=== PATIENT | female | born 1960 | race Caucasian/White ===

== ENCOUNTER 2025-08-07 14:45 | Inpatient (IN) ==
--- NOTE | 2025-08-07 15:32 | Emergency Department Note ---
Impression & Plan Acute and chronic respiratory failure with hypoxia, Pleural effusion, ILD (interstitial lung disease) ED Provider Note NAME: MARCO GARCIA AGE: 64 SEX: F : 1960 ARRIVES VIA: Walk-In INFORMANT: Patient, ED PROVIDER(S): Bhavna Carballo MD CHIEF COMPLAINT: Shortness of breath HPI: This is a 34-year-old female presenting for shortness of breath. Patient has had extensive shortness of breath over the past few months. She notes that in late May she had shortness of breath and was treated for an outpatient pneumonia. She then had worsening symptoms, went to an outside hospital where she was admitted for 6 or 7 days for inpatient antibiotics. She then followed up with a appointment clerk ROS: See above HPI for pertinent positives & negatives. A total of 10 systems reviewed and were otherwise negative. PAST MEDICAL HISTORY: See Below PAST SURGICAL HISTORY: See Below FAMILY HISTORY: See Below SOCIAL HISTORY: See Below HOME MEDICATIONS: See Below ALLERGIES: See Below VITALS: See Below PHYSICAL EXAMINATION: General: Resting comfortably with mild conversational dyspnea Head: Normocephalic and atraumatic Eyes: Normal inspection, extraocular muscles intact Ear, nose, throat: Normal external exam Neck: Normal range of motion Respiratory: Rhonchi diffusely Cardiovascular: Regular rate/rhythm, no murmur GI: soft, nontender, no guarding or rebound Extremities: nontender, moves all extremities Neuro: The patient awake and alert, appropriately conversive, no focal deficits, symmetric faces Skin: Warm, dry, and intact MEDICAL DECISION MAKING: This is a 34-year-old female presenting for shortness of breath. Patient's longstanding history of this. Has a 3 as of antibiotics previously. Will do screening dyspnea workup including EKG, BNP, chest x-ray. -No leukocytosis or anemia. There is significant hyponatremia to 122 with hypochloremia to 88. BNP 253. Procalcitonin negative. Urinalysis negative. URI negative. -Chest x-ray reveals multifocal pneumonia - did order antibiotics however patient refused that she is at 3 different meds of antibiotics and no improvement in symptoms. -CT imaging reveals possible ILD versus pneumonia prescription organizing pneumonia. No PE is noted -Patient is still having shortness of breath, currently on 4 L nasal cannula. Will admit to the hospital service for further evaluation and workup. Differential diagnosis: Pneumonia, PE ,interstitial lung disease, pulmonary hypertension Independent History obtained from: Diagnostics interpreted by me: ECG: ECG independently interpreted by me with normal sinus rhythm, rate of 86, normal CO, normal QRS, normal QTc, no ST segment elevations consistent with STEMI criteria, T wave inversions in lead III Cardiac Monitoring: An order was placed for continuous cardiac monitoring. The monitor shows a rate of 77 with sinus rhythm. 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 Beliefs That Will Affect Care: None Current Living Situation: Spouse Other Information That Helps Us Care for You: No Feels Safe at Home: Yes Safety Concerns: Feels Safe At This Time Assistive Devices: Glasses and Oxygen - Continuous Allergies Allergies Allergy/AdvReac Type Severity Reaction Status Date / Time No Known Allergies Allergy Verified 07/28/12 07:13 Home Meds Home Medications Medication Instructions Recorded Confirmed albuterol sulfate 90 mcg/actuation 1 - 2 puff inhalation Q4 PRN COUGH 08/07/25 08/07/25 aerosol inhaler OR SOB furosemide 40 mg tablet 40 mg PO DAILY 08/07/25 08/07/25 lisinopril 20 1 tab PO DAILY 08/07/25 08/07/25 mg-hydrochlorothiazide 12.5 mg tablet prednisone 10 mg tablet 40 mg PO DAILY 08/07/25 08/07/25 Results & Data (ED) Vital Signs Vital Signs - 24 hr 08/07/25 14:55 08/07/25 15:06 08/07/25 15:36 Temperature 36.5 C Temperature Source Temporal Artery Scan Pulse Rate 94 H 80 Pulse Rate from SpO2 Sensor 79 Respiratory Rate 25 H 26 H Blood Pressure 157/100 H Blood Pressure Mean 119 Pulse Oximetry 98 97 99 Oxygen Delivery Method Nasal Cannula Nasal Cannula Oxygen Flow Rate 2 4 4 Sepsis Recent Fever Within 48 Hours No Sepsis New/Unexplained Change in Mental Status No Sepsis Action Taken by Nursing No Action Required 08/07/25 15:45 08/07/25 15:57 08/07/25 16:16 Temperature Temperature Source Pulse Rate 79 75 95 H Pulse Rate from SpO2 Sensor 79 75 Respiratory Rate 28 H 26 H Blood Pressure Blood Pressure Mean Pulse Oximetry 99 99 Oxygen Delivery Method Oxygen Flow Rate 4 Sepsis Recent Fever Within 48 Hours Sepsis New/Unexplained Change in Mental Status Sepsis Action Taken by Nursing 08/07/25 16:18 08/07/25 16:20 08/07/25 16:20 Temperature Temperature Source Pulse Rate 83 Pulse Rate from SpO2 Sensor 83 Respiratory Rate 21 Blood Pressure 168/90 H 168/90 H Blood Pressure Mean 110 110 Pulse Oximetry 99 Oxygen Delivery Method Oxygen Flow Rate Sepsis Recent Fever Within 48 Hours Sepsis New/Unexplained Change in Mental Status Sepsis Action Taken by Nursing 08/07/25 16:21 08/07/25 16:30 08/07/25 16:30 Temperature Temperature Source Pulse Rate 74 Pulse Rate from SpO2 Sensor 75 Respiratory Rate 25 H Blood Pressure 150/77 H 150/77 H Blood Pressure Mean 104 104 Pulse Oximetry 98 Oxygen Delivery Method Oxygen Flow Rate Sepsis Recent Fever Within 48 Hours Sepsis New/Unexplained Change in Mental Status Sepsis Action Taken by Nursing 08/07/25 16:30 08/07/25 16:30 08/07/25 16:30 Temperature Temperature Source Pulse Rate Pulse Rate from SpO2 Sensor Respiratory Rate Blood Pressure 150/77 H 150/77 H 150/77 H Blood Pressure Mean 104 104 104 Pulse Oximetry Oxygen Delivery Method Oxygen Flow Rate Sepsis Recent Fever Within 48 Hours Sepsis New/Unexplained Change in Mental Status Sepsis Action Taken by Nursing 08/07/25 16:30 08/07/25 16:42 08/07/25 16:51 Temperature Temperature Source Pulse Rate 74 75 77 Pulse Rate from SpO2 Sensor 74 76 77 Respiratory Rate 23 25 H 25 H Blood Pressure Blood Pressure Mean Pulse Oximetry 98 97 97 Oxygen Delivery Method Oxygen Flow Rate Sepsis Recent Fever Within 48 Hours Sepsis New/Unexplained Change in Mental Status Sepsis Action Taken by Nursing 08/07/25 17:00 08/07/25 17:00 08/07/25 17:30 Temperature Temperature Source Pulse Rate Pulse Rate from SpO2 Sensor Respiratory Rate Blood Pressure 139/73 139/73 159/85 H Blood Pressure Mean 102 102 113 Pulse Oximetry Oxygen Delivery Method Oxygen Flow Rate Sepsis Recent Fever Within 48 Hours Sepsis New/Unexplained Change in Mental Status Sepsis Action Taken by Nursing 08/07/25 17:30 08/07/25 18:00 08/07/25 18:12 Temperature Temperature Source Pulse Rate 76 84 Pulse Rate from SpO2 Sensor 79 81 Respiratory Rate 22 19 Blood Pressure 159/85 H 187/98 H Blood Pressure Mean 113 127 Pulse Oximetry 98 98 Oxygen Delivery Method Oxygen Flow Rate Sepsis Recent Fever Within 48 Hours Sepsis New/Unexplained Change in Mental Status Sepsis Action Taken by Nursing 08/07/25 18:21 08/07/25 18:30 08/07/25 18:30 Temperature Temperature Source Pulse Rate 80 75 Pulse Rate from SpO2 Sensor 77 76 Respiratory Rate 25 H 20 Blood Pressure 161/81 H Blood Pressure Mean 119 Pulse Oximetry 98 98 Oxygen Delivery Method Oxygen Flow Rate Sepsis Recent Fever Within 48 Hours Sepsis New/Unexplained Change in Mental Status Sepsis Action Taken by Nursing Laboratory Data 08/08/25 07:06 08/08/25 07:06 Lab Results 08/07/25 08/07/25 08/07/25 Range/Units 15:10 16:11 16:17 WBC 9.71 (4.8-10.8) K/ul RBC 4.41 (4.20-5.40) M/uL Hgb 14.1 (12.0-16.0) g/dl Hct 38.2 (37.0-47.0) % MCV 86.6 (80.0-100.0) fL MCH 32.0 (25.0-34.0) pg MCHC 36.9 H (32.0-36.0) g/dL RDW Std Deviation 37.2 (36.4-46.3) fL RDW Coeff of June 11.6 (11.5-14.5) % Plt Count 212 (130-400) K/uL MPV 9.8 (9.4-12.4) fL Immature Gran % (Auto) 0.3 % Neut % (Auto) 86.3 % Lymph % (Auto) 10.6 % [place] % (Auto) 2.4 % Eos % (Auto) 0.3 % Baso % (Auto) 0.1 % Neut # (Auto) 8.38 H (1.40-6.50) K/uL Lymph # (Auto) 1.03 L (1.20-3.40) K/uL [place] # (Auto) 0.23 (0.11-0.59) K/uL Eos # (Auto) 0.03 (0.00-0.50) K/uL Baso # (Auto) 0.01 (0.00-0.20) K/uL Immature Gran # (Auto) 0.03 (0.01-0.20) K/uL ESR 13 (0-30) mm/hr Sodium 122 L (136-145) mmol/L Potassium 3.7 (3.5-5.1) mmol/L Chloride 88 L (98-107) mmol/L Carbon Dioxide 25 (21-32) mmol/L Anion Gap 9 (3-11) BUN 27 H (6-23) mg/dl Creatinine 0.86 (0.6-1.2) mg/dl Est Cr Clr Drug Dosing 63.5 ml/min eGFR 76.33 BUN/Creatinine Ratio 31.4 H (10-20) Glucose 129 H (70-99(Fasting)) mg/dl Osmolality 265 L (280-300) mOsm/kg Calcium 9.7 (8.6-10.3) mg/dl Total Bilirubin 1.3 H (0.2-1.0) mg/dl AST 23 (13-39) U/L ALT 23 (7-52) U/L Alkaline Phosphatase 49 (34-104) U/L Lactate Dehydrogenase 342 H (86-244) U/L C-Reactive Protein < 0.50 (0-0.5) mg/dl B-Natriuretic Peptide 253 H (0-100) pg/ml Total Protein 7.6 (6.0-8.3) gm/dl Albumin 4.4 (3.4-5.0) gm/dl Globulin 3.2 (2.5-4.0) gm/dl Albumin/Globulin Ratio 1.4 (0.9-2) Procalcitonin < 0.02 (0-0.5) ng/ml Urine Color Yellow Urine Appearance Clear (Clear) Urine pH 6.5 (4.5-7.5) Ur Specific [place] 1.006 (1.000-1.030) Urine Protein Negative (Negative) Urine Glucose (UA) Negative (Negative) Urine Ketones Negative (Negative) Urine Blood Negative (Negative) Urine Nitrite Negative (Negative) Urine Bilirubin Negative (Negative) Urine Urobilinogen Negative (Negative) Ur Leukocyte Esterase Negative (Negative) Urine Osmolality 176 L (500-800) mOsm/kg Ur Random Creatinine 17.2 mg/dl Ur Random Sodium 20 mmol/L Urine Comment Adenovirus (PCR) Not Detected (NotDetected) B. pertussis DNA (PCR) Not Detected (NotDetected) B.parapertussis DNA PCR Not Detected (NotDetected) C. pneumoniae DNA (PCR) Not Detected (NotDetected) Coronavirus OC43 (PCR) Not Detected (NotDetected) Coronavirus HKU1 (PCR) Not Detected (NotDetected) Coronavirus 229E (PCR) Not Detected (NotDetected) SARS-CoV-2 (PCR) Not Detected (NotDetected) Coronavirus NL63 (PCR) Not Detected (NotDetected) Human Metapneumovir PCR Not Detected (NotDetected) Influenza Type A (PCR) Not Detected (NotDetected) Influenza Type B (PCR) Not Detected (NotDetected) M. pneumoniae (PCR) Not Detected (NotDetected) Parainfluenza 1 (PCR) Not Detected (NotDetected) Parainfluenza 2 (PCR) Not Detected (NotDetected) Parainfluenza 3 (PCR) Not Detected (NotDetected) Parainfluenza 4 (PCR) Not Detected (NotDetected) RSV (PCR) Not Detected (NotDetected) Entero/Rhino (PCR) Not Detected (NotDetected) Administered Medications Guaifenesin/Codeine Phosphate (Guaifenesin/Codeine 100mg/10mg 5ml Udc) 10 ml PO HS [facility] Stop: 09/06/25 21:37 Last Admin: 08/07/25 22:25 Dose: 10 ml Documented By: MARICARMEN Discontinued Medications Ceftriaxone Sodium (Rocephin) 2,000 mg in 50 mls @ 100 mls/hr IV NOW STA Stop: 08/07/25 18:03 Last Admin: 08/07/25 18:10 Dose: Not Given Documented By: BS Azithromycin (Zithromax) 500 mg in 255 mls @ 127.5 mls/hr IV NOW ONE Stop: 08/07/25 19:33 Last Admin: 08/07/25 18:10 Dose: Not Given Documented By: BS Sodium Chloride (Nss) 500 mls @ 100 mls/hr IV .Q5H KANDACE Stop: 08/08/25 06:14 Last Infusion: 08/08/25 06:42 Dose: Infused Documented By: Admin: 08/08/25 01:27 Dose: 100 mls/hr Documented By: Infusion: 08/08/25 01:14 Dose: Infused Documented By: Admin: 08/07/25 20:14 Dose: 100 mls/hr Documented By: MAURICIO Ioversol (Optiray 320 125ml) 119 ml IV ONCE ONE Stop: 08/07/25 17:16 Last Admin: 08/07/25 17:16 Dose: 119 ml Documented By: EAB Imaging Data Radiologist's Impression: Chest X-Ray 08/07/25 15:02 Chest radiograph, one view History: Dyspnea Comparison: None Findings: Single AP view of the chest performed. Mild scattered patchy nodular opacities in the mid and lower lungs bilaterally. No pneumothorax. The cardiomediastinal silhouette is within normal limits. Indistinct pulmonary vascularity. No evidence for lymphadenopathy. No visualized bony or soft tissue abnormality. Impression: Mild patchy nodular opacities, concerning for infection Electronically signed by Jakob Rankin 08-07-2025 3:34 PM Chest CTA 08/07/25 15:26 CT pulmonary angiogram with IV contrast History: shortness of breath COMPARISON: None TECHNIQUE: CT angiography of the chest was performed without IV contrast followed by IV contrast, including 3D post processing CTA image reconstruction. Dose reduction techniques were achieved by using automatic exposure control and/or adjustment of mA and/or kV according to patient size and/or use of iterative reconstruction technique. FINDINGS: Diagnostic quality: Adequate There is no evidence for pulmonary embolism. The heart is enlarged. Moderate coronary calcifications. There is no pericardial effusion. Mild reactive appearing lymph nodes In the chest. The central tracheobronchial tree is clear. There are diffuse, mixed coarse opacities with patchy ground glass, overall with a lower lobe predominance, most pronounced in the left lower lobe. There is significant involvement of the central peribronchovascular regions, as well as the periphery. No significant bronchiectasis. No definite honeycombing. There is no pleural effusion. Limited visualized upper abdomen. No destructive osseous changes are seen. IMPRESSION: No evidence for pulmonary embolism. Multifocal, patchy coarse as well as ground glass opacities with a lower lung predominance, consistent with interstitial lung disease, indeterminate for UIP, possibly representing chronic hypersensitivity pneumonitis, or cryptogenic organizing pneumonia. The areas of ground glass density suggest an acute inflammatory component in addition to the fibrotic change. An atypical infectious process superimposed would be difficult to entirely exclude, however the appearance suggests active ILD. Electronically signed by Jakob Rankin 08-07-2025 5:40 PM Discharge Plan Visit Data Chief Complaint: Referred by Doctor Stated Complaint: REF BY DOC, LUNG AND HEART ISSUES ED Provider: Bhavna Carballo Discharge Problem: Acute and chronic respiratory failure with hypoxia, Pleural effusion, ILD (interstitial lung disease) Patient Disposition: Admitted As Inpatient Condition: Fair Discharge Instructions Interventions: ED Discharge Assessment Last Done: 08/07/25 21:19
[2025-08-07 15:33] LABS: Hematocrit (blood only) 38.2 % (37.0-47.0); Hemoglobin 14.1 g/dl (12.0-16.0); Immature Granulocytes # (auto) 0.03 K/uL (0.01-0.20); Immature Granulocytes % (auto) 0.3 %; Mean Corpuscular Hemoglobin 32.0 pg (25.0-34.0); Mean Corpuscular Volume 86.6 fL (80.0-100.0); Platelet Count 212 K/uL (130-400); RDW Standard Deviation 37.2 fL (36.4-46.3); Red Blood Count 4.41 M/uL (4.20-5.40); White Blood Count 9.71 K/ul (4.8-10.8)
[2025-08-07 15:59] LABS: Alanine Aminotransferase 23 U/L (7-52); Albumin Globulin Ratio 1.4 (0.9-2); Albumin Level 4.4 gm/dl (3.4-5.0); Alkaline Phosphatase 49 U/L (34-104); Anion Gap 9 (3-11); Bilirubin,Total 1.3 mg/dl (0.2-1.0); Blood Urea Nitrogen 27 mg/dl (6-23); Calcium 9.7 mg/dl (8.6-10.3); Carbon Dioxide 25 mmol/L (21-32); Chloride 88 mmol/L (98-107); Creatinine Clr Calc Pharmacy 63.5 ml/min; Globulin 3.2 gm/dl (2.5-4.0); Glucose 129 mg/dl (70-99(Fasting)); Potassium 3.7 mmol/L (3.5-5.1); Sodium 122 mmol/L (136-145); Total Protein 7.6 gm/dl (6.0-8.3)
[2025-08-07 16:32] LABS: Appearance Urine Clear (Clear); Glucose Urine UA Negative (Negative)
[2025-08-07] MEDS: OPTIRAY 320 125ml IV ONE (17:16)
--- NOTE | 2025-08-07 17:40 | CT Scan Report ---
CT pulmonary angiogram with IV contrast History: shortness of breath COMPARISON: None TECHNIQUE: CT angiography of the chest was performed without IV contrast followed by IV contrast, including 3D post processing CTA image reconstruction. Dose reduction techniques were achieved by using automatic exposure control and/or adjustment of mA and/or kV according to patient size and/or use of iterative reconstruction technique. FINDINGS: Diagnostic quality: Adequate There is no evidence for pulmonary embolism. The heart is enlarged. Moderate coronary calcifications. There is no pericardial effusion. Mild reactive appearing lymph nodes In the chest. The central tracheobronchial tree is clear. There are diffuse, mixed coarse opacities with patchy ground glass, overall with a lower lobe predominance, most pronounced in the left lower lobe. There is significant involvement of the central peribronchovascular regions, as well as the periphery. No significant bronchiectasis. No definite honeycombing. There is no pleural effusion. Limited visualized upper abdomen. No destructive osseous changes are seen. IMPRESSION: No evidence for pulmonary embolism. Multifocal, patchy coarse as well as ground glass opacities with a lower lung predominance, consistent with interstitial lung disease, indeterminate for UIP, possibly representing chronic hypersensitivity pneumonitis, or cryptogenic organizing pneumonia. The areas of ground glass density suggest an acute inflammatory component in addition to the fibrotic change. An atypical infectious process superimposed would be difficult to entirely exclude, however the appearance suggests active ILD. Electronically signed by Jakob Rankin 08-07-2025 5:40 PM
[2025-08-07] MEDS: AZITHROMYCIN 500 MG/255 ML BAG IV ONE (18:10)
[2025-08-07] MEDS: cefTRIAXone SODIUM 2,000 MG/50 ML BAG IV STA (18:10)
[2025-08-07 18:33] LABS: Chlamydia pneumoniae PCR Not Detected (NotDetected); Coronavirus 229E PCR Not Detected (NotDetected); Coronavirus CoV-2 (COVID19)PCR Not Detected (NotDetected); Coronavirus HKU1 PCR Not Detected (NotDetected); Coronavirus NL63 PCR Not Detected (NotDetected); Coronavirus OC43PCR Not Detected (NotDetected); Human Metapneumovirus PCR Not Detected (NotDetected); Parainfluenza Virus 1 PCR Not Detected (NotDetected); Parainfluenza Virus 2 PCR Not Detected (NotDetected); Parainfluenza Virus 3 PCR Not Detected (NotDetected); Parainfluenza Virus 4 PCR Not Detected (NotDetected); Respiratory Syncytial VirusPCR Not Detected (NotDetected); Rhinovirus/Enterovirus PCR Not Detected (NotDetected)
--- NOTE | 2025-08-07 18:33 | History & Physical Report ---
Date of Service August 07, 2025 Assessment & Plan (1) Shortness of breath: Plan Discussed with Belinda KWONG with [facility] via phone for the following records/results from recent hospitalization at [facility] as well as studies conducted in outpatient setting: PT symptoms started in May, where she was seen by PCP and given oral antibiotics levofloxacin 500 mg x 14 days, no symptom improvement. CT chest at that time showed ground glass opacities. She was admitted to [facility] from 07/10-07/16 where she was given Iv vancomycin, amongst other scans and a cardiac stress test which was read as normal. Echo showed severely dilated RV and EF of 55%, mild mitral regurgitation. RVSP 36. Sodium during that stay was around 130 consistently. During that stay is where she was told her heart was looking more like heart failure and was placed on amlodipine 5 mg and lisinopril 40 mg. She is still taking these medications. Recently she was also placed on lasix 40 mg daily. Pt has been following with [facility] as outpatient on 07/20/25. The patient was seen by wall insulation sprayer at [facility], Belinda KWONG, on follow up. She was started on prednisone 40 mg daily for about 2 weeks. Pulse ox was slightly improved on RA and was only requiring 2 L with exertional activity. hypersensitivity pneumonitis rule out per pulm. ANCA and MARY testing negative dSNA ab neg, SUSY antibodies screen interpretation negative Angiotensin converting enzyme negative Aspergillus negative Micropolyspora faeni, pigeon serum, T. candidus, T, vulgaris, S. Viridis all negative. Rh Factor negative CCP IgG negative Proteinase 3 ab negative Myeloperoxidase Ab negative May call Belinda Rapp at [phone] with [facility] if questions. Possible Interstitial Lung disease, ?crytogenic pneumonia - Admit to Tele - Discussed care with ELENITA Foley with [facility] regarding recent outpatient test. - Consult pulmonology, Dr. Grijalva - possible bronchoscopy needed during this admission - Consult cardiology with hyponatremia and possible heart failure with preserved EF. - Recently had outpatient MARY, ANCA and was negative per [facility]. She was scheduled for outpatient PFTs and CTA but hasn't happened yet - Check coccidioses, fungitel beta 1 glucan, HIV, legionella, sputum culture, LDH, ESR, CRP, peripheral smear - RVP biofire is negative - Na 122 today - Echo 07/12/25: [facility] report - EF of 55-60%, RV cavity size mildly dilated, systolic pressure mildly elevated, mitral valve mildly calcified, mild regurgitation, mildly thickened mitral leaflets, pulmonic valve mild regurgitation. - Repeat echo here. - CTA today showing heart enlargement, moderate coronary calcification, no pericardial effusion, mild reactive appearing lymph nodes. vascular calcific ations on CT in the aorta and coronary arteries were seen on previous CTA at [facility] as well. - hold prednisone 40 mg daily which she has been on for about 2 week. await pulm recommendations Hyponatremia - 122 on admission - NS 1L total at 100 ml/hr, possible prerenal or lasix induced etiology. - Hold lisinopril/hctz for now DVT ppx:teds, scds Lines: PIV x 1 CODE: FULL Dispo: From home, likely to remain in the hospital x 1-2 days A total of 90 minutes were spent with greater than 50% of that time face to face with the patient, personally reviewing all current laboratories, imaging studies, past medication reconciliation, outpatient chart review, and discussion with specialists to collaborate care for the patient with attending. Please see attending documentation for corrections and/or additions. History of Present Illness Chief Complaint: Shortness of breath Primary Care Provider: Florin Hayes PA-C This is a 64 yo F with PMhx of HTN, presents with shortness of breath, fatigue, chest heaviness and dry cough to the ER. She occasionally has a tightness and heaviness in her chest. She has a dry cough, no sputum production. Wears 2 -3 L at all times, during sleep wears 3L consistently since May. Has difficulty with doing ADLs such as showering. She occasionally has a tightness and heaviness in her chest. She has a dry cough, no sputum production. 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 This morning she was preparing food for a group of people celebrating a 89th birthday, once the guest arrived and everything was done, her drove her to the hospital. History is reviewed by the patient, her and Belinda KWONG with [facility] on the phone. Her symptoms started in May, where she was seen by PCP and given oral antibiotics levofloxacin 500 mg x 14 days, no symptom improvement. CT chest at that time showed ground glass opacities. She was admitted to [facility] from 07/10-07/16 where she was given Iv vancomycin, amongst other scans and a cardiac stress test which was read as normal. Echo showed severely dilated RV and EF of 55%, mild mitral regurgitation. RVSP 36. Her sodium during that stay was aroun 130 consistently. During that stay is where she was told her heart was looking more like heart failure and was placed on amlodipine 5 mg and lisinopril 40 mg. She is still taking these medications. Recently she was also placed on lasix 40 mg daily. Pt has been following with [facility] as outpatient on 07/20/25. The patient was seen by wall insulation sprayer at [facility], Belinda KWONG, on follow up. She was started on prednisone 40 mg daily for about 2 weeks. Pulse ox was slightly improved on RA and was only requiring 2 L with exertional activity. Had labs done outpatient on 08/06/25 and found low sodium at 123, Pt was labs were done yesterday at [facility] showing pro-BNP of >2700, here on admission has Na 122 and BNP 273. Outpatient provider told her to drink Gatorade and hol d the lasix, so last dose of lasix was evening (3days ago). Biofire RVP is negative. CTA shows multifocal patchy coarse ground glass opacities concerning for multifocal pneumonia vs interstitial lung disease vs hypersensitivity pneumonitis. There is no pulmonary emboli. She refuses antibiotic as she has been on 3 courses without improvement. Pt is agreeable for admission. Allergies Allergy/AdvReac Type Severity Reaction Status Date / Time No Known Allergies Allergy Verified 07/28/12 07:13 Home Medications Medication Instructions Recorded Confirmed Type albuterol sulfate 90 mcg/actuation 1 - 2 puff inhalation Q4 PRN COUGH 08/07/25 08/07/25 History aerosol inhaler OR SOB furosemide 40 mg tablet 40 mg PO DAILY 08/07/25 08/07/25 History lisinopril 20 1 tab PO DAILY 08/07/25 08/07/25 History mg-hydrochlorothiazide 12.5 mg tablet prednisone 10 mg tablet 40 mg PO DAILY 08/07/25 08/07/25 History Past Med/Surg History Problem List Shortness of breath Social History Smoking Status: Never smoker Review of Systems Review of Systems: Constitutional: No fever, sweats or chills Eyes: No diplopia, no worsening or blurred vision ENT: normal hearing, no trouble swallowing Respiratory: + cough, no sputum, no dyspnea at rest, + dyspnea on exertion Cardiovascular: No chest pain, tightness or palpitations Abdomen: No pain, nausea, vomiting, diarrhea or constipation Musculoskeletal: No joint pain, calf pain, swelling Neurologic: No weakness, numbness/tingling, or balance problems Psychiatric: No anxiety or depression Skin: No rash or itch Physical Exam Physical Exam: General: awake, alert, no apparent distress, white female Head: Normocephalic, atraumatic ENT: PERRL, EOMI, no pharyngeal exudate, mucous membranes moist Chest: Diminished breath sounds at bases, on room air, no adventitious breath sounds Cardiac: Regular rate and rhythm, no murmur, no JVD, normal peripheral pulses, good capillary refill Abdominal: NABS x 4 quadrants, soft, nondistended, nontender to palpation, no rebound or guarding Extremities: Normal inspection, no peripheral edema or erythema, calfs nontender to palpation Psych: Normal mood and affect Neuro: AAO x 3, strength intact bilaterally and rated 5/5, no motor deficits, speech is clear, no peripheral sensory deficits Results & Data Results & Data Vital Signs (Past 12 Hours) Vital Signs Temp Pulse Resp BP Pulse Ox O2 Del Method O2 Flow Rate 08/07/25 18:12 84 19 98 08/07/25 18:00 76 22 187/98 H 98 08/07/25 17:30 159/85 H 08/07/25 17:30 159/85 H 08/07/25 17:00 139/73 08/07/25 17:00 139/73 08/07/25 16:51 77 25 H 97 08/07/25 16:42 75 25 H 97 08/07/25 16:30 74 23 98 08/07/25 16:30 150/77 H 08/07/25 16:30 150/77 H 08/07/25 16:30 150/77 H 08/07/25 16:30 150/77 H 08/07/25 16:30 150/77 H 08/07/25 16:21 74 25 H 98 08/07/25 16:20 168/90 H 08/07/25 16:20 168/90 H 08/07/25 16:18 83 21 99 08/07/25 16:16 95 H 08/07/25 15:57 75 26 H 99 4 08/07/25 15:45 79 28 H 99 08/07/25 15:36 80 26 H 99 4 08/07/25 15:06 97 Nasal Cannula 4 08/07/25 14:55 36.5 C 94 H 25 H 157/100 H 98 Nasal Cannula 2 Laboratory Results 08/07/25 08/07/25 08/07/25 16:17 16:11 15:10 WBC 9.71 RBC 4.41 Hgb 14.1 Hct 38.2 MCV 86.6 MCH 32.0 MCHC 36.9 H RDW Std Deviation 37.2 RDW Coeff of June 11.6 Plt Count 212 MPV 9.8 Immature Gran % (Auto) 0.3 Neut % (Auto) 86.3 Lymph % (Auto) 10.6 [place] % (Auto) 2.4 Eos % (Auto) 0.3 Baso % (Auto) 0.1 Neut # (Auto) 8.38 H Lymph # (Auto) 1.03 L [place] # (Auto) 0.23 Eos # (Auto) 0.03 Baso # (Auto) 0.01 Immature Gran # (Auto) 0.03 Sodium 122 L Potassium 3.7 Chloride 88 L Carbon Dioxide 25 Anion Gap 9 BUN 27 H Creatinine 0.86 Est Cr Clr Drug Dosing 63.5 eGFR 76.33 BUN/Creatinine Ratio 31.4 H Glucose 129 H Calcium 9.7 Total Bilirubin 1.3 H AST 23 ALT 23 Alkaline Phosphatase 49 B-Natriuretic Peptide 253 H Total Protein 7.6 Albumin 4.4 Globulin 3.2 Albumin/Globulin Ratio 1.4 Procalcitonin < 0.02 Urine Color Yellow Urine Appearance Clear Urine pH 6.5 Ur Specific [place] 1.006 Urine Protein Negative Urine Glucose (UA) Negative Urine Ketones Negative Urine Blood Negative Urine Nitrite Negative Urine Bilirubin Negative Urine Urobilinogen Negative Ur Leukocyte Esterase Negative Urine Comment Adenovirus (PCR) Not Detected B. pertussis DNA (PCR) Not Detected B.parapertussis DNA PCR Not Detected C. pneumoniae DNA (PCR) Not Detected Coronavirus OC43 (PCR) Not Detected Coronavirus HKU1 (PCR) Not Detected Coronavirus 229E (PCR) Not Detected SARS-CoV-2 (PCR) Not Detected Coronavirus NL63 (PCR) Not Detected Human Metapneumovir PCR Not Detected Influenza Type A (PCR) Not Detected Influenza Type B (PCR) Not Detected M. pneumoniae (PCR) Not Detected Parainfluenza 1 (PCR) Not Detected Parainfluenza 2 (PCR) Not Detected Parainfluenza 3 (PCR) Not Detected Parainfluenza 4 (PCR) Not Detected RSV (PCR) Not Detected Entero/Rhino (PCR) Not Detected Diagnostic Findings Chest X-Ray 08/07/25 15:02 Chest radiograph, one view History: Dyspnea Comparison: None Findings: Single AP view of the chest performed. Mild scattered patchy nodular opacities in the mid and lower lungs bilaterally. No pneumothorax. The cardiomediastinal silhouette is within normal limits. Indistinct pulmonary vascularity. No evidence for lymphadenopathy. No visualized bony or soft tissue abnormality. Impression: Mild patchy nodular opacities, concerning for infection Electronically signed by Jakob Rankin 08-07-2025 3:34 PM Chest CTA 08/07/25 15:26 CT pulmonary angiogram with IV contrast History: shortness of breath COMPARISON: None TECHNIQUE: CT angiography of the chest was performed without IV contrast followed by IV contrast, including 3D post processing CTA image reconstruction. Dose reduction techniques were achieved by using automatic exposure control and/or adjustment of mA and/or kV according to patient size and/or use of iterative reconstruction technique. FINDINGS: Diagnostic quality: Adequate There is no evidence for pulmonary embolism. The heart is enlarged. Moderate coronary calcifications. There is no pericardial effusion. Mild reactive appearing lymph nodes In the chest. The central tracheobronchial tree is clear. There are diffuse, mixed coarse opacities with patchy ground glass, overall with a lower lobe predominance, most pronounced in the left lower lobe. There is significant involvement of the central peribronchovascular regions, as well as the periphery. No significant bronchiectasis. No definite honeycombing. There is no pleural effusion. Limited visualized upper abdomen. No destructive osseous changes are seen. IMPRESSION: No evidence for pulmonary embolism. Multifocal, patchy coarse as well as ground glass opacities with a lower lung predominance, consistent with interstitial lung disease, indeterminate for UIP, possibly representing chronic hypersensitivity pneumonitis, or cryptogenic organizing pneumonia. The areas of ground glass density suggest an acute inflammatory component in addition to the fibrotic change. An atypical infectious process superimposed would be difficult to entirely exclude, however the appearance suggests active ILD. Electronically signed by Jakob Rankin 08-07-2025 5:40 PM Supervising Physician Co-Signing Physician Notes Patient seen and examined at bedside. present as well. Patient not co mfortable, anxious and dyspneic. Dyspnea getting worse over past few days. Recently travelled to [facility]. Works in [employer] currently. On exam, trace inhalation rhonchi, hemodynamically stable, appears anxious in room, dyspnea noted, no leukocytosis but mild neutrophilic predominance, Na of 122 with low chloride, elevated BUN with elevated BUN/creatinine ratio suggestive of dehydration, negative procal suggestive of nonbacterial etiology of respiratory failure. IRVIN discussed case with outpatient wall insulation sprayer, appreciate assistance with case. See above for testing already done. Negative MARY, ANCA, aspergillus, CCP, rheumatoid factor. Complex case. Patient presenting with acute on chronic hypoxic respiratory failure of unknown etiology. Extensive outpatient testing has not revealing diagnosis. Differential could include fungal etiologies, cryptogenic/secondary organizing pneumonia, non specific interstitial pneumonia, hypersensitivity pneumonitis (less likely given no eosinophilic predominance), loculated pulmonary edema (less likely given BNP and no perhipheral edema), infiltrative disease such as sarcoidosis (given HF like symptoms), less likely pulmonary va sculitis (given negative ANCA in past), bronchioalveolar carcinoma -ask about bird, mold history -check: rheumatoid factor, fungitell beta glucan, coccidioides, blastomyces, HIV, legionella, AFB, peripheral smear, ESR, CRP, LDH -pulmonary consult, will likely benefit from bronchoscopy -outpatient wall insulation sprayer requesting cardiology consult given dilated RV with moderate mitral regurgitation, appreciate recs, check echo as well -RV dilatation likely from pulmonary HTN from pulmonary related process -could consider workup of infiltrative diseases -give 1 L at 100cc/hr of NSS and recheck in AM, check serum osmoles, urine osmoles, urine creatinine, urine sodium (not back at time of writing note), hold lisinopril/hydrochlorothiazide -guaifenesin/codeine for cough (should help with anxiety as well from dyspnea) -hold steroids and abx to not decrease yield of potential biopsy -start IS and flutter valve I have seen and discussed the case with the collaborating advanced practitioner. I agree with the above H&P. I have reviewed and confirmed the patients medical history, the findings on physical examination, and the patients diagnosis and treatment plan with Ivon Nelson PA-C and agree with the information documented. I spent a total of 60 minutes coordinating, documenting, and providing care for this patient excluding time spent in the performance of separately billed services. All of the aforementioned completed outside of collaborating with the assigned advanced practitioner for a full treatment plan. I have reviewed the advanced practitioner's documentation, and I agree with, and take responsibility for the plan of care
[2025-08-07] MEDS: SODIUM CHLORIDE 0.9% 500 ML IV SCH (20:14)
[2025-08-07] MEDS ORDERED: ALBUT/IPRATROP 3MG/0.5MG NEB 3 ML VIAL NEB PRN (20:31)
[2025-08-07] MEDS ORDERED: ONDANSETRON INJ 2 MG/ML 2 ML VIAL IV PRN (21:38)
[2025-08-07] MEDS ORDERED: ACETAMINOPHEN 325 MG TAB PO PRN (21:38)
[2025-08-07 22:52] LABS: Hematocrit (blood only) 36.7 % (37.0-47.0); Hemoglobin 13.0 g/dl (12.0-16.0); Immature Granulocytes # (auto) 0.02 K/uL (0.01-0.20); Immature Granulocytes % (auto) 0.2 %; Mean Corpuscular Hemoglobin 31.3 pg (25.0-34.0); Mean Corpuscular Volume 88.4 fL (80.0-100.0); Platelet Count 198 K/uL (130-400); RDW Standard Deviation 37.2 fL (36.4-46.3); Red Blood Count 4.15 M/uL (4.20-5.40); White Blood Count 8.98 K/ul (4.8-10.8)
--- NOTE | 2025-08-08 07:20 | Electrocardiogram Report ---
Test Reason : Blood Pressure : */* mmHG Vent. Rate : 86 BPM Atrial Rate : 86 BPM P-R Int : 136 ms QRS Dur : 98 ms QT Int : 398 ms P-R-T Axes : 47 21 -15 degrees QTcB Int : 476 ms Normal sinus rhythm Possible Left atrial enlargement Left ventricular hypertrophy ( R in aVL , Sokolow-Trivedi , [place] product , Romhilt-Matt ) Abnormal ECG When compared with ECG of 24-Jul-2012 15:06, T wave inversion now evident in Inferior leads Confirmed by Arturo Granados ([id number]) on 08/08/2025 7:20:13 AM Referred By: SPECIALIST GLEN RICHEY LUNG Confirmed By: Arturo Granados
[2025-08-08 07:32] LABS: Hematocrit (blood only) 34.4 % (37.0-47.0); Hemoglobin 11.6 g/dl (12.0-16.0); Mean Corpuscular Hemoglobin 30.9 pg (25.0-34.0); Mean Corpuscular Volume 91.5 fL (80.0-100.0); Platelet Count 163 K/uL (130-400); RDW Standard Deviation 39.8 fL (36.4-46.3); Red Blood Count 3.76 M/uL (4.20-5.40); White Blood Count 7.11 K/ul (4.8-10.8)
[2025-08-08 07:58] LABS: Alanine Aminotransferase 14.0 U/L (7-52); Albumin Globulin Ratio 1.6 (0.9-2); Albumin Level 3.6 gm/dl (3.4-5.0); Alkaline Phosphatase 34.0 U/L (34-104); Anion Gap 4.0 (3-11); Bilirubin,Total 1.0 mg/dl (0.2-1.0); Blood Urea Nitrogen 20.0 mg/dl (6-23); Calcium 8.6 mg/dl (8.6-10.3); Carbon Dioxide 29.0 mmol/L (21-32); Chloride 98.0 mmol/L (98-107); Creatinine Clr Calc Pharmacy 72.8 ml/min; Globulin 2.2 gm/dl (2.5-4.0); Glucose 89.0 mg/dl (70-99(Fasting)); Potassium 4.3 mmol/L (3.5-5.1); Sodium 131.0 mmol/L (136-145); Total Protein 5.8 gm/dl (6.0-8.3)
--- NOTE | 2025-08-08 12:26 | Cardiology Consultation ---
Date of Consultation August 08, 2025 Assessment & Plan (1) Acute and chronic respiratory failure with hypoxia: (2) Shortness of breath: (3) ILD (interstitial lung disease): (4) Mitral regurgitation: (5) LVH (left ventricular hypertrophy): Plan JERRY Chest pain Moderate to severe mitral regurgitation LVH MOOK ILD Resp failure on 3L 02 HTN -Patient with severe JERRY with rapid progression -Patient appears euvolemic on examination -Echocardiogram repeated with moderate to severe mitral regurgitation, HCM with MOOK -Patient with moderate coronary artery calcification and risk factors for CAD -Recommend RHC/LHC for further investigation of JERRY. NPO after midnight -Appreciate pulmonology input Case discussed with Dr Webber. I spent a total of 44 minutes on the date of service in preparation, delivery, and documentation of the care provided to this patient, excluding any time spent in the performance of separately billed services. Dolores Guzman PA-C Department of Cardiology, [facility] This chart was completed in part utilizing Speech Voice Recognition Software. Grammatical errors, random word insertions, pronoun errors, and incomplete sentences are an occasional consequence of this system due to software limitations, ambient noise, and hardware issues. Any formal questions or concerns about the content, text, or information contained within the body of this dictation should be directly addressed to the provider for clarification. Supervising Physician Co-Signing Physician Notes Patient seen and examined. Past medical history, surgical history, social history and family history have been reviewed. The medical record and all the above studies have been reviewed. Case DW IRVIN including management. Acute on recent onset respiratory insufficiency Moderate to severe mitral regurgitation ?Hypertrophic obstructive cardiomyopathy ILD HTN Recommend RHC/LHC for further investigation of JERRY. NPO after midnight Patient with moderate coronary artery calcification and risk factors for CAD with SX of rapidly worsening severe JERRY Patient appears euvolemic on examination Echocardiogram repeated with moderate to severe mitral regurgitation, HCM with MOOK medical optimization based upon further diagnostics May need KELLE as well f/u with pulmonary History of Present Illness Reason for Consultation: JERRY, chest pain Requesting Physician: Dr Suarez Attending Physician: Daniela Adams MD History of Present Illness Charline Butts is a 64 year old female with PMHx HTN, heart murmur, moderate coronary artery calcification who presented to [facility] with shortness of breath, chest heaviness, fatigue and dry cough. Wears 2-3L continuously since 05/2025. Patient reports difficulty with ADLs due to SOB and chest tightness. Patient states severe shortness of breath with minimal activity. Chest tightness is located in lower neck region when SOB. Nonexertional, nonradiating. Has full sensation after small meals. Due to this she has not been eating large portions and has lost 16 pounds. Prior to 05/2025 patient was very active, enjoyed playing multiple sports. She does note a care home heart murmur that she has been told seems louder per her PCP, denies hx of rheumatic fever. Patient initially treated for extensive multifocal PNA 05/2025 at [facility] ED with levaquin. Patient reported no improvement in symptoms. Admission to [facility] 07/10-07/16 per discharge summary: # Acute hypoxic respiratory failure in setting of recent pneumonia with worsening infiltrates on CT # ?Recurrent/persistent CAP # Dyspnea on exertion, persistent # Dry cough pt completed 14 days of levaquin outpt; Oxygen saturation of 84% on room air on arrival. no leucocytosis, lactic 1.6, procal <0.05; flu, rsv, covid neg proBNP 785; trop neg x2 Fever 38.8 07/10 1045am CTA no PE; worsening bilateral ground glass infiltrates; no fibrosis, no interstitial lung disease; mediastinal lymphadenopathy thought to be reactive sputum cx 07/11 small amount of normal nam EKG SR neg acute ST changes, mildly prominent T waves diffusely; TTE EF 55-60%, no RWMA, gr2DD, normal IVC; Stress test negative - Patient completed 7 days of empiric antibiotics with cefepime, vancomycin. -Incentive spirometry - Oxygen qualification test done prior to discharge. Patient will need 2 L oxygen with ambulation. -Patient has an appointment with pulmonary on 07/19 for further evaluation/management. Patient remains SOB on examination. Limited expiration due to frequent dry cough. Denies chest pain, syncope, dizziness Family HX: Father with CABG x3 in his 60s Allergies Allergy/AdvReac Type Severity Reaction Status Date / Time No Known Allergies Allergy Verified 07/28/12 07:13 Home Medications Medication Instructions Recorded Confirmed Type albuterol sulfate 90 mcg/actuation 1 - 2 puff inhalation Q4 PRN COUGH 08/07/25 08/07/25 History aerosol inhaler OR SOB furosemide 40 mg tablet 40 mg PO DAILY 08/07/25 08/07/25 History lisinopril 20 1 tab PO DAILY 08/07/25 08/07/25 History mg-hydrochlorothiazide 12.5 mg tablet prednisone 10 mg tablet 40 mg PO DAILY 08/07/25 08/07/25 History Patient History Social History Smoking Status: Never smoker Hx Alcohol Use: Yes Alcohol type: beer Hx Substance Use: No Preferred Language: Korean Communication Ability: Effective 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 Beliefs That Will Affect Care: None Current Living Situation: Spouse Other Information That Helps Us Care for You: No Feels Safe at Home: Yes Safety Concerns: Feels Safe At This Time Assistive Devices: Glasses and Oxygen - Continuous Review of Systems Review of Systems: All systems reviewed & are unremarkable except as noted in HPI & below Physical Exam Constitutional: WD/WN, vitals as above well developed and well nourished Respiratory: normal respiratory effort and + cough; no respiratory distress + scattered b/l crackles Cardiovascular: Rate/Rhythm: regular rate and regular rhythm Heart Sounds: normal S1, normal S2 and + murmur Vessels: no JVD Extremities: no edema Gastrointestinal (Abdomen): normal bowel sounds, soft, nontender, no hepatosplenomegaly Skin: no rashes, warm and dry Psychiatric: A+Ox3, euthymic affect Results & Data Vital Signs (Past 12 Hours) Vital Signs Temp Pulse Resp BP Pulse Ox O2 Del Method O2 Flow Rate 08/08/25 10:50 36.5 C 77 139/77 98 Nasal Cannula 4 08/08/25 07:25 36.5 C 63 16 136/74 100 Room Air 08/08/25 05:14 36.6 C 57 L 17 152/75 H 100 Nasal Cannula 4 Laboratory Results Cardiac Enzymes 08/07/25 08/08/25 08/08/25 Range/Units 15:10 07:06 09:20 AST 23 15 (13-39) U/L Lactate Dehydrogenase 342 H (86-244) U/L Troponin I High Sens 31.8 H (0-14) pg/ml B-Natriuretic Peptide 253 H (0-100) pg/ml Coagulation 08/07/25 Range/Units 15:10 B-Natriuretic Peptide 253 H (0-100) pg/ml CBC 08/07/25 08/07/25 08/08/25 Range/Units 15:10 22:31 07:06 WBC 9.71 8.98 7.11 (4.8-10.8) K/ul RBC 4.41 4.15 L 3.76 L (4.20-5.40) M/uL Hgb 14.1 13.0 11.6 L (12.0-16.0) g/dl Hct 38.2 36.7 L 34.4 L (37.0-47.0) % Plt Count 212 198 163 (130-400) K/uL Neut # (Auto) 8.38 H 5.92 (1.40-6.50) K/uL Lymph # (Auto) 1.03 L 1.84 (1.20-3.40) K/uL Owen # (Auto) 0.23 1.08 H (0.11-0.59) K/uL Eos # (Auto) 0.03 0.10 (0.00-0.50) K/uL Baso # (Auto) 0.01 0.02 (0.00-0.20) K/uL Comprehensive Metabolic Panel 08/07/25 08/08/25 Range/Units 15:10 07:06 Sodium 122 L 131 L D (136-145) mmol/L Potassium 3.7 4.3 (3.5-5.1) mmol/L Chloride 88 L 98 (98-107) mmol/L Carbon Dioxide 25 29 (21-32) mmol/L BUN 27 H 20 (6-23) mg/dl Creatinine 0.86 0.75 (0.6-1.2) mg/dl Glucose 129 H 89 (70-99(Fasting)) mg/dl Calcium 9.7 8.6 (8.6-10.3) mg/dl AST 23 15 (13-39) U/L ALT 23 14 (7-52) U/L Alkaline Phosphatase 49 34 (34-104) U/L Total Protein 7.6 5.8 L D (6.0-8.3) gm/dl Albumin 4.4 3.6 (3.4-5.0) gm/dl Intake and Output 08/07/25 08/08/25 08/08/25 22:59 06:59 14:59 Intake Total 120 / 1120 1000 / 1120 Balance 120 / 1120 1000 / 1120 Intake: IV 1000 / 1000 Sodium Chloride 0.9% 500 ml @ 1000 / 1000 100 mls/hr IV .Q5H KANDACE Rx#: [id number] Oral 120 / 120 Other: # Unmeasured Voids 1 1 Weight 70.2 kg Weight Measurement Method Built in [facility] Diagnostic Findings ECHO 08/08/2025 Technically difficult study LV systolic function is normal LVEF 60-65% Grade 1 diastolic dysfunction mild pulmonic regurgitation Moderate to severe MR MOOK mild TR EKG 08/07/2025 NSR 86bpm possible LAE LVH CT PE 08/07/2025 IMPRESSION: No evidence for pulmonary embolism. Multifocal, patchy coarse as well as ground glass opacities with a lower lung predominance, consistent with interstitial lung disease, indeterminate for UIP, possibly representing chronic hypersensitivity pneumonitis, or cryptogenic organizing pneumonia. The areas of ground glass density suggest an acute inflammatory component in addition to the fibrotic change. An atypical infectious process superimposed would be difficult to entirely exclude, however the appearance suggests active ILD. Echo 07/12/25: [facility] report - EF of 55-60%, RV cavity size mildly dilated, systolic pressure mildly elevated, mitral valve mildly calcified, mild regurgitation, mildly thickened mitral leaflets, pulmonic valve mild regurgitation. PG Care Time/CCT Total # of Minutes Spent Total Time Spent with Patient: Total time spent is greater than 50% in coordination of care (as documented) at patient's floor/unit and/or counseling patient: Coding Level of Care Code 77005 IN/OBS CONSULT LVL 5,80M Diagnoses Acute and chronic respiratory failure with hypoxia J96.21 Shortness of breath R06.02 ILD (interstitial lung disease) J84.9 Mitral regurgitation I34.0 LVH (left ventricular hypertrophy) I51.7
--- NOTE | 2025-08-08 13:21 | Hospitalist Progress Note ---
Date of Service August 08, 2025 Assessment & Plan (1) Shortness of breath: Plan Possible Interstitial Lung disease, ?crytogenic pneumonia URI-like symptoms started around end of May and received a course of Levaquin for 2 weeks without any improvement. Shortness of breath continued and was admitted in the hospital at [facility] and received a course of intravenous vancomycin and also at that time given lisinopril and amlodipine to control blood pressure. Later on she was also started with 40 mg prednisone and during this time she was having hyponatremia. Her symptoms of shortness of breath and chest tightness persisted. - CTA on admission showing heart enlargement, moderate coronary calcification, no pericardial effusion, mild reactive appearing lymph nodes. vascular calcifications on CT in the aorta and coronary arteries were seen on previous CTA at [facility] as well. - Discussed care with ELENITA Foley with [facility] regarding recent outpatient test. - Consult pulmonology, Dr. Grijalva - possible bronchoscopy needed during this admission - Recently had outpatient MARY, ANCA and was negative per Estela pulevelyn. She was scheduled for outpatient PFTs and CTA but hasn't happened yet - Check coccidioses, fungitel beta 1 glucan, HIV, legionella, sputum culture, LDH, ESR, CRP, peripheral smear - RVP biofire is negative - Echo 07/12/25: [facility] report - EF of 55-60%, RV cavity size mildly dilated, systolic pressure mildly elevated, mitral valve mildly calcified, mild regurgitation, mildly thickened mitral leaflets, pulmonic valve mild regurgitation. -Hold prednisone 40 mg daily which she has been on for about 2 week. await pulm recommendations She remains very anxious and is still symptomatic with chest tightness, shortness of breath at rest and requiring up to 4 L to maintain saturation She has been getting intravenous ceftriaxone and azithromycin for possible interstitial pneumonia Awaiting pulmonary evaluation Upper chest tightness r/o CMP/ACS Associated with shortness of breath without any evidence of fluid overload and no edema and/or weight gain Troponin minimally elevated Has significant murmur Echo was done on 07/12/2025 as above and we will repeat an echo during this admission Appreciate cardiology input and recommendation Hyponatremia - 122 on admission - NS 1L total at 100 ml/hr, possible prerenal or lasix induced etiology. - Hold lisinopril/hctz for now -Could be secondary to atypical pneumonia Will monitor. Note from admitting team: Discussed with Belinda KWONG with [facility] via phone for the following records/results from recent hospitalization at [facility] as well as studies conducted in outpatient setting: PT symptoms started in May, where she was seen by PCP and given oral antibiotics levofloxacin 500 mg x 14 days, no symptom improvement. CT chest at that time showed ground glass opacities. She was admitted to [facility] from 07/10-07/16 where she was given Iv vancomycin, amongst other scans and a cardiac stress test which was read as normal. Echo showed severely dilated RV and EF of 55%, mild mitral regurgitation. RVSP 36. Sodium during that stay was around 130 consistently. During that stay is where she was told her heart was looking more like heart failure and was placed on amlodipine 5 mg and lisinopril 40 mg. She is still taking these medications. Recently she was also placed on lasix 40 mg daily. Pt has been following with [facility] as outpatient on 07/20/25. The patient was seen by mining analyst at [facility], Belinda KWONG, on follow up. She was started on prednisone 40 mg daily for about 2 weeks. Pulse ox was slightly improved on RA and was only requiring 2 L with exertional activity. hypersensitivity pneumonitis rule out per pulm. ANCA and MARY testing negative dSNA ab neg, SUSY antibodies screen interpretation negative Angiotensin converting enzyme negative Aspergillus negative Micropolyspora faeni, pigeon serum, T. candidus, T, vulgaris, S. Viridis all negative. Rh Factor negative CCP IgG negative Proteinase 3 ab negative Myeloperoxidase Ab negative May call Belinad Rapp at [phone] with [facility] if questions. DVT ppx:teds, scds Lines: PIV x 1 CODE: FULL Dispo: From home, likely to remain in the hospital x 1-2 days Admission and Anticipated Discharge Date Admission Date: August 07, 2025 Subjective 08/08/2025 The patient was seen and examined in telemetry unit She has been complaining of ongoing shortness of breath and chest tightness with any activities and also during conversation Very anxious but denies any abdominal pain, nausea and or vomiting Does not have any swelling of the legs and no weight gain Review of Systems Review of Systems: All systems reviewed and are unremarkable except as noted below Physical Exam Physical Exam: Lying in bed with acute distress due to shortness of breath Constitutional: + ill appearing and average body habitus Eyes: PERRL, conjunctivae normal, anicteric sclerae ENMT: external ear and nose normal, oropharynx normal Neck: trachea midline, no thyromegaly Respiratory: + respiratory distress Auscultation: + diminished lung sounds, + crackles (Bibasilar crackles) and + wheezes (Minimal wheezing bilaterally) Cardiovascular: Rate/Rhythm: regular rate and regular rhythm; not tachycardic Heart Sounds: normal S1, normal S2 and + murmur (3/5 ESM over precordium) Extremities: no edema Gastrointestinal (Abdomen): Inspection/Auscultation: normal bowel sounds; abdomen not distended Percussion/Palpation: abdomen soft; abdomen nontender Musculoskeletal: No acute arthritis involving any of the joint Neurologic: normal touch/pain/proprioception and moves all extremities; no focal motor deficits Lymphatic: no cervical or axillary lymphadenopathy Results & Data Results & Data Vital Signs (Past 12 Hours) Vital Signs Temp Pulse Resp BP Pulse Ox O2 Del Method O2 Flow Rate 08/08/25 10:50 36.5 C 77 139/77 98 Nasal Cannula 4 08/08/25 07:25 36.5 C 63 16 136/74 100 Room Air 08/08/25 05:14 36.6 C 57 L 17 152/75 H 100 Nasal Cannula 4 Laboratory Results Short CBC 08/07/25 08/07/25 08/08/25 Range/Units 15:10 22:31 07:06 WBC 9.71 8.98 7.11 (4.8-10.8) K/ul Hgb 14.1 13.0 11.6 L (12.0-16.0) g/dl Hct 38.2 36.7 L 34.4 L (37.0-47.0) % Plt Count 212 198 163 (130-400) K/uL BMP 08/07/25 08/08/25 15:10 07:06 Sodium 122 L 131 L D Potassium 3.7 4.3 Chloride 88 L 98 Carbon Dioxide 25 29 BUN 27 H 20 Creatinine 0.86 0.75 Glucose 129 H 89 Calcium 9.7 8.6 Liver Function 08/07/25 08/08/25 Range/Units 15:10 07:06 Total Bilirubin 1.3 H 1.0 (0.2-1.0) mg/dl AST 23 15 (13-39) U/L ALT 23 14 (7-52) U/L Alkaline Phosphatase 49 34 (34-104) U/L Albumin 4.4 3.6 (3.4-5.0) gm/dl Urine 08/07/25 Range/Units 16:11 Urine Color Yellow Urine Appearance Clear (Clear) Urine pH 6.5 (4.5-7.5) Ur Specific Mereta 1.006 (1.000-1.030) Urine Protein Negative (Negative) Urine Glucose (UA) Negative (Negative) Medications Administered Current Inpatient Medications Acetaminophen (Acetaminophen 325 Mg Tab) 650 mg PO Q4H PRN PRN Reason: Moderate Pain (Scale 4, 5, 6) Stop: 09/06/25 21:37 Albuterol (Albut/Ipratrop 3mg/0.5mg Neb 3 Ml Vial) 3 ml NEB Q6R PRN; Protocol PRN Reason: Shortness Of Breath Or Wheezing Stop: 09/06/25 20:30 Guaifenesin/Codeine Phosphate (Guaifenesin/Codeine 100mg/10mg 5ml Udc) 10 ml PO HS KANDACE Stop: 09/06/25 21:37 Last Admin: 08/07/25 22:25 Dose: 10 ml Ondansetron HCl (Ondansetron Inj 2 Mg/Ml 2 Ml Vial) 4 mg IV Q4H PRN PRN Reason: Nausea And Vomiting Stop: 09/06/25 21:37
--- NOTE | 2025-08-08 15:05 | Pulmonary Consultation ---
Date of Consultation August 08, 2025 Assessment & Plan (1) ILD (interstitial lung disease): (2) Acute and chronic respiratory failure with hypoxia: (3) Shortness of breath: (4) Chronic cough: Plan Based on the patient's clinical picture and symptoms, she appears to have a rapidly progressing interstitial lung disease of unclear etiology which appears to be at least partially responsive to steroids. CT chest imaging reviewed which reveals diffuse ground glass opacities and some mild fibrotic changes. This pattern is not consistent with UIP/IPF at this time. The differential is broad including acute HP, acute interstitial pneumonitis, cellular NSIP, acute fibrinous and organizing pneumonia, atypical presentation of sarcoidosis and potentially other etiologies such as PJP. She ids not overtly immunosuppressed, but has been intermittently on steroids and is at risk for PJP. She has a mildly elevated LDH. Will check sputum and PJP PCR and empirically start Bactrim and IV methylprednisone. Monitor sodium levels, potassium and creatinine closely. I am not sure of the diagnostic yield of a bronchoscopy with BAL in this patient. It can help rule out potential eosinophilic processes or other infectious etiologies although this seems unlikely at this time. I think the risks of provoking her ILD and flaring ILD and are potentially worse than any benefit that can be had from bronchoscopy with BAL. EBUS could also be considered as there is some adenopathy noted in her chest which is nonspecific. Lymphoproliferative diseases and a possible and other disorders such as granulomatous lymphocytic interstitial lung disease. I do not think an EBUS would be a high yield procedure. however. I think the patient at this time will need to proceed with evaluation at an ILD center, lung biopsy and right heart catheterization. Will obtain baseline echo. We did discuss that she may require a lung transplantation in the near future depending upon her workup and response to potential immunosuppressive therapy. Prior serologic labs reviewed as noted per HPI. Will add additional labs including CK level, Marizol 1 antibody, Sjogren's antibodies, WATCH AND CLOCK REPAIR CLERK antibody and SCL 70 antibody. Notably her CRP and ESR are generally unremarkable which is a bit concerning as her may be a significant fibrotic component to her ILD. I would expect her inflammatory markers to be more elevated if there was an active process. Urinalysis was bland without any evidence of blood or protein. Pulmonary renal syndrome unlikely. Lastly, start PPI BID. I personally spent 85 minutes on the date of service in activities related to this patient's encounter, including 50 minutes of counseling with patient regarding treatment plan and 35 minutes of clinical review of lab results and documentation. I did correctional classification counselor the patient regarding their diagnosis and treatment plan and they expressed understanding. This note was dictated using voice recognition software and may include grammatical errors, extra words, word substitutions and other inaccuracies due to errors in the voice recognition software and differences in speech patterns. History of Present Illness Reason for Consultation: Interstitial lung disease Attending Physician: Daniela Adams MD History of Present Illness 64-year-old female with no significant past medical history aside from hypertension presenting to the hospital due to ongoing severe shortness of breath and cough. Patient notes that over the course of this past summer she has been dealing with progressively increasing shortness of breath and severe cough that is mostly nonproductive. She has been treated with 2 courses of antibiotics including IV levofloxacin and several courses of prednisone with minimal relief of symptoms. She denies any significant travel history except for traveling to the [place] earlier in the year. She is a semiretired [employer]. She is a lifelong non-smoker. She denies any family history of significant pulmonary disease. She is present with her today. She follows with an IRVIN as an outpatient with [facility]. Unfortunately, I do not have their old notes or imaging to review. She notes that she underwent a several CT scans in the past few months including CT scans at the [facility]. Patient is not currently on any IV medications. She does endorse occasional globus sensation in her throat when trying to swallow. She denies any Raynaud's phenomenon or significant joint aches. She does endorse weakness and lethargy in general. BNP checked yesterday reveals a mildly elevated value of 253 pg/mL. Patient without any significant eosinophilia on labs. ESR and CRP were negative. Reportedly patient has labs to evaluate for vasculitis and mixed connective tissue disorders including ANCA, MARY testing, double-stranded DNA testing, CCP IgG antibody and RF factor which were all negative. Hospital service ordered LDH which was mildly elevated. HP panel was also checked which was negative mildly previous pulmonary provider as an outpatient. She does not have any pets at home. Allergies Allergy/AdvReac Type Severity Reaction Status Date / Time No Known Allergies Allergy Verified 07/28/12 07:13 Home Medications Medication Instructions Recorded Confirmed Type albuterol sulfate 90 mcg/actuation 1 - 2 puff inhalation Q4 PRN COUGH 08/07/25 08/07/25 History aerosol inhaler OR SOB furosemide 40 mg tablet 40 mg PO DAILY 08/07/25 08/07/25 History lisinopril 20 1 tab PO DAILY 08/07/25 08/07/25 History mg-hydrochlorothiazide 12.5 mg tablet prednisone 10 mg tablet 40 mg PO DAILY 08/07/25 08/07/25 History Patient History Social History Smoking Status: Never smoker Hx Alcohol Use: Yes Alcohol type: beer Hx Substance Use: No Preferred Language: Lao Communication Ability: Effective Inspector And Sorter Required: No Beliefs That Will Affect Care: None Current Living Situation: Spouse Other Information That Helps Us Care for You: No Feels Safe at Home: Yes Safety Concerns: Feels Safe At This Time Assistive Devices: Glasses and Oxygen - Continuous Review of Systems Review of Systems: All systems reviewed & are unremarkable except as noted in HPI & below Physical Exam Physical Exam: Constitutional: Anxious appearing and often tearful. Coughing frequently. Otherwise well-appearing. Dyspneic with conversation. Eyes: Pupils are equal round and reactive to light. Conjunctivae are normal. Anicteric sclera. Ears nose, mouth and throat: Mallampati class 2. Normal posterior oropharynx. Uvula is midline. No telangiectasias identified. Neck: Trachea is midline. Visual inspection is normal. Respiratory: Mildly diminished at the bases bilaterally with minimal crackles. Tachypneic. No clubbing. Cardiovascular: Regular rate and rhythm. No murmurs. No edema. Gastrointestinal: Normal bowel sounds, soft, nontender and nondistended. No hepatosplenomegaly noted. Musculoskeletal: No cyanosis. Patient is able to move all extremities. Skin: No rashes, warm dry and intact. Neurologic: No obvious focal neurological deficits seen. Psychiatric: Alert and oriented x3 with a euthymic affect. Results & Data Results & Data Vital Signs (Past 12 Hours) Vital Signs Temp Pulse Pulse Resp BP Pulse Ox O2 Del Method 08/08/25 10:50 36.5 C 77 139/77 98 Nasal Cannula 08/08/25 10:00 Nasal Cannula 08/08/25 10:00 59 L 08/08/25 07:25 36.5 C 63 16 136/74 100 Room Air 08/08/25 05:14 36.6 C 57 L 17 152/75 H 100 Nasal Cannula O2 Flow Rate 08/08/25 10:50 4 08/08/25 10:00 4 08/08/25 10:00 08/08/25 07:25 08/08/25 05:14 4 PG Care Time/CCT Total # of Minutes Spent Total Time Spent with Patient: Total time spent is greater than 50% in coordination of care (as documented) at patient's floor/unit and/or counseling patient: Coding Level of Care Code 00888 INT INP/OBS CARE MIN Diagnoses ILD (interstitial lung disease) J84.9 Acute and chronic respiratory failure with hypoxia J96.21 Shortness of breath R06.02 Chronic cough R05.3
--- NOTE | 2025-08-08 15:29 | XCELERA ---
[id number]
[2025-08-08] MEDS: SULFA IV ONE (16:29)
[2025-08-08] MEDS: TRIMETH IV ONE (16:29)
[2025-08-08] MEDS: DEXTROSE 5% IV ONE (16:29)
[2025-08-08] MEDS: TRIMETH IV SCH (23:48)
[2025-08-08] MEDS: DEXTROSE 5% IV SCH (23:48)
[2025-08-08] MEDS: SULFA IV SCH (23:48)
[2025-08-09 06:43] LABS: Hematocrit (blood only) 31.7 % (37.0-47.0); Hemoglobin 11.5 g/dl (12.0-16.0); Mean Corpuscular Hemoglobin 32.6 pg (25.0-34.0); Mean Corpuscular Volume 89.8 fL (80.0-100.0); Platelet Count 116 K/uL (130-400); RDW Standard Deviation 38.5 fL (36.4-46.3); Red Blood Count 3.53 M/uL (4.20-5.40); White Blood Count 6.49 K/ul (4.8-10.8)
[2025-08-09 07:06] LABS: Alanine Aminotransferase 14.0 U/L (7-52); Albumin Globulin Ratio 1.6 (0.9-2); Albumin Level 3.6 gm/dl (3.4-5.0); Alkaline Phosphatase 35.0 U/L (34-104); Anion Gap 6.0 (3-11); Bilirubin,Total 0.7 mg/dl (0.2-1.0); Blood Urea Nitrogen 11.0 mg/dl (6-23); Calcium 8.5 mg/dl (8.6-10.3); Carbon Dioxide 26.0 mmol/L (21-32); Chloride 97.0 mmol/L (98-107); Creatinine Clr Calc Pharmacy 65.0 ml/min; Globulin 2.2 gm/dl (2.5-4.0); Glucose 140.0 mg/dl (70-99(Fasting)); Magnesium 2.0 mg/dl (1.7-2.4); Potassium 4.3 mmol/L (3.5-5.1); Sodium 129.0 mmol/L (136-145); Total Protein 5.8 gm/dl (6.0-8.3)
[2025-08-09 07:26] LABS: Immature Granulocytes # (auto) 0.02 K/uL (0.01-0.20); Immature Granulocytes % (auto) 0.3 %; Polychromasia 1+
--- NOTE | 2025-08-09 10:38 | Pre Anesthesia Assessment ---
Date of Service August 09, 2025 Pre Sedation Assessment Vital Signs Temp Pulse Pulse Resp BP Pulse Ox O2 Del Method 08/09/25 10:25 66 18 171/82 H 98 Nasal Cannula 08/09/25 08:00 Nasal Cannula 08/09/25 07:26 36.5 C 70 17 154/75 H 93 Nasal Cannula 08/09/25 04:59 36.7 C 68 20 154/74 H 98 Nasal Cannula 08/09/25 01:12 Nasal Cannula 08/09/25 00:17 36.8 C 81 17 137/70 97 Nasal Cannula 08/08/25 21:51 76 08/08/25 20:12 36.8 C 46 L 17 130/66 98 Nasal Cannula 08/08/25 15:59 36.6 C 80 18 128/72 100 Room Air 08/08/25 10:50 36.5 C 77 139/77 98 Nasal Cannula O2 Flow Rate 08/09/25 10:25 2 08/09/25 08:00 4 08/09/25 07:26 4 08/09/25 04:59 4 08/09/25 01:12 4 08/09/25 00:17 4 08/08/25 21:51 08/08/25 20:12 4 08/08/25 15:59 08/08/25 10:50 4 Cardiovascular Additional Comments: grade 2-3/6 SM S4 JVD Respiratory Additional Comments: dyspnea with speech Pre-Sedation Airway Assessment Smoking Status: Never smoker Hx Sleep Apnea: No Short, Thick Neck: No Thyromental Distance: > or= 3.5 Finger Breadths Oral Cavity: + WNL Mallampati Class: III ASA: ASA4 NPO Status Date of Last Intake of Fluids: 08/09/25 Time of Last Intake of Fluids: 07:00 Date of Last Intake of Solid Food: 08/08/25 Time of Last Intake of Solid Foods: 23:50 Notes The planned sedation has been discussed with the patient. Informed Consent was obtained. I have identified the patient, determined the appropriateness of sedation and have assessed the patient immediately prior to the procedure. All medicine(s) and interventions are by my order.
[2025-08-09] MEDS: niCARdipine 2,000 MCG/20 ML SYR ONE (10:59)
[2025-08-09] MEDS: NITROGLYCERIN/D5W 100MCG/ML 20ML SYR ONE (10:59)
--- NOTE | 2025-08-09 11:03 | Cardiology Progress Note ---
Date of Service August 09, 2025 Assessment & Plan (1) Acute and chronic respiratory failure with hypoxia: (2) Shortness of breath: (3) ILD (interstitial lung disease): (4) Mitral regurgitation: (5) LVH (left ventricular hypertrophy): Plan JERRY Chest pain Moderate to severe mitral regurgitation LVH MOOK ILD Resp failure on 3L 02 HTN -Patient with severe JERRY with rapid progression -Patient appears euvolemic on examination -Echocardiogram repeated with moderate to severe mitral regurgitation, HCM with MOOK -Patient with moderate coronary artery calcification and risk factors for CAD -Recommend RHC/LHC for further investigation of JERRY. NPO after midnight -Appreciate pulmonology input 08/09/2025 64-year-old presenting with clinical history of rapidly progressive interstitial lung disease. Echocardiogram with moderate left ventricular hypertrophy, there hyperdynamic LV function with mid cavity obliteration. Aortic valve trileaflet with mild calcification and sclerosis, moderate late systolic mitral insufficiency. Systolic anterior mitral valve leaflet motion present due to hyperdynamic contractility at mid level of the ventricle Euvolemic on exam with audible systolic murmur. No augmentation with Valsalva maneuver Pulmonary exam consistent with interstitial lung disease with diffuse fine crackles. Pulmonary treatment plan in progress. Right and left heart catheterization to be performed today as part of staging Given hyperdynamic LV function may benefit from low-dose beta-leah if pulmonary status will tolerate Hold lisinopril given hyponatremia This chart was completed in part utilizing Speech Voice Recognition Software. Grammatical errors, random word insertions, pronoun errors, and incomplete sentences are an occasional consequence of this system due to software limitations, ambient noise, and hardware issues. Any formal questions or concerns about the content, text, or information contained within the body of this dictation should be directly addressed to the provider for clarification. Admission and Anticipated Discharge Date Admission Date: August 07, 2025 Subjective Patient was seen and personally examined. Chart, medications, telemetry reviewed. Respiratory status improved overnight still with nonproductive cough. Less dyspnea no chest pain or discomfort. Review of Systems Review of Systems: All systems reviewed & are unremarkable except as noted in Subjective Physical Exam Constitutional: WD/WN, vitals as above no acute distress Eyes: PERRL, conjunctivae normal, anicteric sclerae Neck: trachea midline, no thyromegaly Respiratory: normal respiratory effort and + cough; no respiratory distress Auscultation: + crackles (Bibasilar) Cardiovascular: Rate/Rhythm: regular rate and regular rhythm Heart Sounds: normal S1, normal S2 and + murmur Vessels: no JVD Extremities: no edema Gastrointestinal (Abdomen): normal bowel sounds, soft, nontender, no hepatosplenomegaly Skin: no rashes, warm and dry Psychiatric: A+Ox3, euthymic affect Results & Data Vital Signs (Past 12 Hours) Vital Signs Temp Pulse Resp BP Pulse Ox O2 Del Method O2 Flow Rate 08/09/25 10: 66 18 171/82 H 98 Nasal Cannula 2 08/09/25 08:00 Nasal Cannula 4 08/09/25 07:26 36.5 C 70 17 154/75 H 93 Nasal Cannula 4 08/09/25 04:59 36.7 C 68 20 154/74 H 98 Nasal Cannula 4 08/09/25 01:12 Nasal Cannula 4 08/09/25 00:17 36.8 C 81 17 137/70 97 Nasal Cannula 4 Laboratory Results Laboratory Results - last 24 hr 08/07/25 08/08/25 08/08/25 22:31 15:48 17:50 WBC RBC Hgb Hct MCV MCH MCHC RDW Std Deviation RDW Coeff of June Plt Count MPV Immature Gran % (Auto) Neut % (Auto) Lymph % (Auto) Price % (Auto) Eos % (Auto) Baso % (Auto) Neut # (Auto) Lymph # (Auto) Price # (Auto) Eos # (Auto) Baso # (Auto) Immature Gran # (Auto) Polychromasia Peripher Smr Path Cons Sodium Potassium Chloride Carbon Dioxide Anion Gap BUN Creatinine Est Cr Clr Drug Dosing eGFR BUN/Creatinine Ratio Glucose Calcium Phosphorus Magnesium Total Bilirubin AST ALT Alkaline Phosphatase Total Creatine Kinase 45 Total Protein Albumin Globulin Albumin/Globulin Ratio Nasal Screen MRSA (PCR) Negative YAYO-1 Antibody Pending SS-A/Ro Antibody Pending SS-B/La Antibody Pending REHAB PHYSICIAN Antibody Pending Scl-70 Scleroderma Ab Pending Pneumocystis Source Pneumocyst jirovecii PCR 08/08/25 08/09/25 22:00 06:10 WBC 6.49 RBC 3.53 L Hgb 11.5 L Hct 31.7 L MCV 89.8 MCH 32.6 MCHC 36.3 H RDW Std Deviation 38.5 RDW Coeff of June 11.8 Plt Count 116 L MPV 10.0 Immature Gran % (Auto) 0.3 Neut % (Auto) 90.9 Lymph % (Auto) 7.2 Price % (Auto) 1.4 Eos % (Auto) 0.2 Baso % (Auto) 0.0 Neut # (Auto) 5.90 Lymph # (Auto) 0.47 L Price # (Auto) 0.09 L Eos # (Auto) 0.01 Baso # (Auto) 0.00 Immature Gran # (Auto) 0.02 Polychromasia 1+ Peripher Smr Path Cons Sodium 129 L Potassium 4.3 Chloride 97 L Carbon Dioxide 26 Anion Gap 6 BUN 11 Creatinine 0.84 Est Cr Clr Drug Dosing 65.0 eGFR 78.52 BUN/Creatinine Ratio 13.1 Glucose 140 H Calcium 8.5 L Phosphorus 2.6 Magnesium 2.0 Total Bilirubin 0.7 AST 16 ALT 14 Alkaline Phosphatase 35 Total Creatine Kinase Total Protein 5.8 L Albumin 3.6 Globulin 2.2 L Albumin/Globulin Ratio 1.6 Nasal Screen MRSA (PCR) YAYO-1 Antibody SS-A/Ro Antibody SS-B/La Antibody REHAB PHYSICIAN Antibody Scl-70 Scleroderma Ab Pneumocystis Source Pending Pneumocyst jirovecii PCR Pending PG Care Time/CCT Total # of Minutes Spent Total Time Spent with Patient: Total time spent is greater than 50% in coordination of care (as documented) at patient's floor/unit and/or counseling patient: Coding Level of Care Code 29903 SUB INP/OBS CARE 3/50MIN Diagnoses Acute and chronic respiratory failure with hypoxia J96.21 Shortness of breath R06.02 ILD (interstitial lung disease) J84.9 Mitral regurgitation I34.0 LVH (left ventricular hypertrophy) I51.7
[2025-08-09] MEDS: HEPARIN (PORCINE) 1000 UNIT/ML 10 ML (CATH LAB USE ONLY) ONE (11:19)
[2025-08-09] MEDS: MIDAZOLAM HCL 1 MG/ML 2ML VIAL ONE (11:19)
[2025-08-09] MEDS: OPTIRAY 350 ONE (11:19)
[2025-08-09 11:24] LABS: iSTAT Art Bld Gas Base Excess -4.0 mmol/L (-9-1.8)
[2025-08-09 11:24] LABS: iSTAT Art Bld Gas Base Excess -3.0 mmol/L (-9-1.8)
--- NOTE | 2025-08-09 11:28 | Post Anesthesia Assessment ---
Date of Service August 09, 2025 Post Sedation Assessment Vital Signs Temp Pulse Pulse Resp BP Pulse Ox O2 Del Method 08/09/25 10:25 66 18 171/82 H 98 Nasal Cannula 08/09/25 08:00 Nasal Cannula 08/09/25 07:26 36.5 C 70 17 154/75 H 93 Nasal Cannula 08/09/25 04:59 36.7 C 68 20 154/74 H 98 Nasal Cannula 08/09/25 01:12 Nasal Cannula 08/09/25 00:17 36.8 C 81 17 137/70 97 Nasal Cannula 08/08/25 21:51 76 08/08/25 20:12 36.8 C 46 L 17 130/66 98 Nasal Cannula 08/08/25 15:59 36.6 C 80 18 128/72 100 Room Air O2 Flow Rate 08/09/25 10:25 2 08/09/25 08:00 4 08/09/25 07:26 4 08/09/25 04:59 4 08/09/25 01:12 4 08/09/25 00:17 4 08/08/25 21:51 08/08/25 20:12 4 08/08/25 15:59 Recovery Score Activity: Moves 4 extremities Respiration: Deep Breath/Cough Circulation: +/-20% PreAnes Value Consciousness: Fully Awake Oxygen Saturation: > 92% On Room Air Discharge Sedation Level of Care: Fast Track Phase II Post Sedation Plan On clinical assessment, the patient appears to have tolerated the sedation without complications. Patient is recovering as anticipated. Patient will continue to be monitored by nursing and may be discharged when sedation discharge criteria are met per below protocol. Upon Completions of procedure up to 15 minutes continue every 5 minute vital signs and the P.A.R. score; then discharge to a Phase I or Fast Track to Phase II per the following guidelines: * Discharge Patient to appropriate Phase II area if PAR is 8 or greater or return to pre- procedure baseline. The post - procedure orders will be as directed. * If PAR score is less than 8 or not return to pre-procedure baseline then patient will follow Phase I monitoring till PAR is reached for Phase II. The Phase I may be done in procedure room or may call to secure a Phase I area. * If naloxone or flumazenil are used for reversal, hold in Phase I for continued monitoring from when last reversal dose was given for a minimum of 60 minutes or longer pending the nurse and/or physician discretion of patient condition before discharge to Phase II. Please call the Sedation Physician to re-evaluate and complete post-note for discharge to Phase II area. Do NOT discharge from procedure sedation or Phase 1 until post- sedation evaluation note is complete by procedure /sedation MD Sedation Discharge Instructions to be given to the patient at discharge to home. [facility] Procedure Codes (Charges) Indication for Procedure Indication for procedure: Dyspnea
[2025-08-09 11:36] LABS: iSTAT Art Bld Gas Base Excess -4.0 mmol/L (-9-1.8)
--- NOTE | 2025-08-09 14:17 | Hospitalist Progress Note ---
Date of Service August 09, 2025 Assessment & Plan (1) Shortness of breath: Plan Possible Interstitial Lung disease, ?crytogenic pneumonia URI-like symptoms started around end of May and received a course of Levaquin for 2 weeks without any improvement. Shortness of breath continued and was admitted in the hospital at [place] and received a course of intravenous vancomycin and also at that time given lisinopril and amlodipine to control blood pressure. Later on she was also started with 40 mg prednisone and during this time she was having hyponatremia. Her symptoms of shortness of breath and chest tightness persisted. - CTA on admission showing heart enlargement, moderate coronary calcification, no pericardial effusion, mild reactive appearing lymph nodes. vascular calcifications on CT in the aorta and coronary arteries were seen on previous CTA at [facility] as well. - Discussed care with ELENITA Foley with [facility] regarding recent outpatient test. - Consult pulmonology, Dr. Grijalva - possible bronchoscopy needed during this admission - Recently had outpatient MARY, ANCA and was negative per Estela pulevelyn. She was scheduled for outpatient PFTs and CTA but hasn't happened yet - Check coccidioses, fungitel beta 1 glucan, HIV, legionella, sputum culture, LDH, ESR, CRP, peripheral smear - RVP biofire is negative - Echo 07/12/25: [facility] report - EF of 55-60%, RV cavity size mildly dilated, systolic pressure mildly elevated, mitral valve mildly calcified, mild regurgitation, mildly thickened mitral leaflets, pulmonic valve mild regurgitation. -Hold prednisone 40 mg daily which she has been on for about 2 week. await pulm recommendations She remains very anxious and is still symptomatic with chest tightness, shortness of breath at rest and requiring up to 4 L to maintain saturation She has been getting intravenous ceftriaxone and azithromycin for possible interstitial pneumonia Appreciate pulmonary input and recommendation Has significant lung fibrosis with the worst number of differentials and PJP is not ruled out She has started with intravenous Solu-Medrol and intravenous Bactrim Sputum PJP and may need bronchoscopy and lavage for the same-she has been feeling a little better Upper chest tightness r/o CMP/ACS Associated with shortness of breath without any evidence of fluid overload and no edema and/or weight gain Troponin minimally elevated Has significant murmur Echo was done on 07/12/2025 as above and we will repeat an echo during this admission Appreciate cardiology input and recommendation She will have cardiac catheter today Hyponatremia - 122 on admission - NS 1L total at 100 ml/hr, possible prerenal or lasix induced etiology. - Hold lisinopril/hctz for now -Could be secondary to atypical pneumonia Will monitor.-Sodium level has gone up to 131 Note from admitting team: Discussed with Belinda KWONG with [facility] via phone for the following records/results from recent hospitalization at [facility] as well as studies conducted in outpatient setting: PT symptoms started in May, where she was seen by PCP and given oral antibiotics levofloxacin 500 mg x 14 days, no symptom improvement. CT chest at that time showed ground glass opacities. She was admitted to [facility] from 07/10-07/16 where she was given Iv vancomycin, amongst other scans and a cardiac stress test which was read as normal. Echo showed severely dilated RV and EF of 55%, mild mitral regurgitation. RVSP 36. Sodium during that stay was around 130 consistently. During that stay is where she was told her heart was looking more like heart failure and was placed on amlodipine 5 mg and lisinopril 40 mg. She is still taking these medications. Recently she was also placed on lasix 40 mg daily. Pt has been following with [facility] as outpatient on 07/20/25. The patient was seen by casing finisher and stuffer at [facility], Belinda KWONG, on follow up. She was started on prednisone 40 mg daily for about 2 weeks. Pulse ox was slightly improved on RA and was only requiring 2 L with exertional activity. hypersensitivity pneumonitis rule out per pulm. ANCA and MARY testing negative dSNA ab neg, SUSY antibodies screen interpretation negative Angiotensin converting enzyme negative Aspergillus negative Micropolyspora faeni, pigeon serum, T. candidus, T, vulgaris, S. Viridis all negative. Rh Factor negative CCP IgG negative Proteinase 3 ab negative Myeloperoxidase Ab negative May call Belinda Rapp at [phone] with [facility] if questions. DVT ppx:teds, scds Lines: PIV x 1 CODE: FULL Dispo: From home, likely to remain in the hospital x 1-2 days Admission and Anticipated Discharge Date Admission Date: August 07, 2025 Subjective 08/08/2025 The patient was seen and examined in telemetry unit She has been complaining of ongoing shortness of breath and chest tightness with any activities and also during conversation Very anxious but denies any abdominal pain, nausea and or vomiting Does not have any swelling of the legs and no weight gain 08/09/2025 Patient was seen and examined in telemetry unit She feels a little better but he still has respiratory distress and upper chest tightness at rest Has been requiring 4 L to maintain saturations Review of Systems Review of Systems: All systems reviewed and are unremarkable except as noted below Physical Exam Physical Exam: Lying in bed with acute distress due to shortness of breath Constitutional: + ill appearing and average body habitus Eyes: PERRL, conjunctivae normal, anicteric sclerae ENMT: external ear and nose normal, oropharynx normal Neck: trachea midline, no thyromegaly Respiratory: + respiratory distress Auscultation: + diminished lung sounds, + crackles (Bibasilar crackles) and + wheezes (Minimal wheezing bilaterally) Cardiovascular: Rate/Rhythm: regular rate and regular rhythm; not tachycardic Heart Sounds: normal S1, normal S2 and + murmur (3/5 ESM over precordium) Extremities: no edema Gastrointestinal (Abdomen): Inspection/Auscultation: normal bowel sounds; abdomen not distended Percussion/Palpation: abdomen soft; abdomen nontender Neurologic: normal touch/pain/proprioception and moves all extremities; no focal motor deficits Lymphatic: no cervical or axillary lymphadenopathy Results & Data Results & Data Vital Signs (Past 12 Hours) Vital Signs Temp Pulse Pulse Resp BP Pulse Ox O2 Del Method 08/09/25 13:03 36.8 C 73 18 137/69 98 Nasal Cannula 08/09/25 12:40 36.5 C 89 18 157/72 H 97 Nasal Cannula 08/09/25 12:13 36.7 C 80 18 166/76 H 94 Nasal Cannula 08/09/25 11:56 68 16 144/71 H 98 Room Air 08/09/25 11:40 70 16 156/79 H 99 Room Air 08/09/25 10:25 66 18 171/82 H 98 Nasal Cannula 08/09/25 08:00 Nasal Cannula 08/09/25 07:26 36.5 C 70 17 154/75 H 93 Nasal Cannula 08/09/25 04:59 36.7 C 68 20 154/74 H 98 Nasal Cannula O2 Flow Rate 08/09/25 13:03 4 08/09/25 12:40 4 08/09/25 12:13 4 08/09/25 11:56 08/09/25 11:40 08/09/25 10:25 2 08/09/25 08:00 4 08/09/25 07:26 4 08/09/25 04:59 4 Laboratory Results Short CBC 08/09/25 Range/Units 06:10 WBC 6.49 (4.8-10.8) K/ul Hgb 11.5 L (12.0-16.0) g/dl Hct 31.7 L (37.0-47.0) % Plt Count 116 L (130-400) K/uL BMP 08/09/25 06:10 Sodium 129 L Potassium 4.3 Chloride 97 L Carbon Dioxide 26 BUN 11 Creatinine 0.84 Glucose 140 H Calcium 8.5 L Cardiac Enzymes 08/08/25 Range/Units 15:48 Total Creatine Kinase 45 (26-192) U/L Liver Function 08/09/25 Range/Units 06:10 Total Bilirubin 0.7 (0.2-1.0) mg/dl AST 16 (13-39) U/L ALT 14 (7-52) U/L Alkaline Phosphatase 35 (34-104) U/L Albumin 3.6 (3.4-5.0) gm/dl Medications Administered Current Inpatient Medications Acetaminophen (Acetaminophen 325 Mg Tab) 650 mg PO Q4H PRN PRN Reason: Moderate Pain (Scale 4, 5, 6) Stop: 09/06/25 21:37 Albuterol (Albut/Ipratrop 3mg/0.5mg Neb 3 Ml Vial) 3 ml NEB Q6R PRN; Protocol PRN Reason: Shortness Of Breath Or Wheezing Stop: 09/06/25 20:30 Guaifenesin/Codeine Phosphate (Guaifenesin/Codeine 100mg/10mg 5ml Udc) 10 ml PO HS KANDACE Stop: 09/06/25 21:37 Last Admin: 08/08/25 20:54 Dose: 10 ml Trimethoprim/Sulfamethoxazole (350 mg/ Dextrose) 521.875 mls @ 347.917 mls/hr IV Q8H KANDACE Stop: 08/14/25 00:00 Last Infusion: 08/09/25 09:59 Dose: Infused Methylprednisolone 40 mg/ (Syringe) 0.64 mls @ 1.5 mls/min IV BID [facility] Stop: 09/07/25 20:59 Last Admin: 08/09/25 08:17 Dose: 1.5 mls/min Metoprolol Succinate (Metoprolol Succ 25mg Ext Rel Tab) 12.5 mg PO BID [facility] Stop: 09/08/25 20:59 Ondansetron HCl (Ondansetron Inj 2 Mg/Ml 2 Ml Vial) 4 mg IV Q4H PRN PRN Reason: Nausea And Vomiting Stop: 09/06/25 21:37 Pantoprazole Sodium (Pantoprazole 40 Mg Tab) 40 mg PO BID [facility] Stop: 09/07/25 20:59 Last Admin: 08/09/25 08:17 Dose: 40 mg
--- NOTE | 2025-08-09 15:31 | Cardiac Catheterization ---
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 CAD Presenation: No Sxs, No angina Diagnostic Physicians Name: Patrice Johnston MD, PhD Closure Device Recommendations: Medical Therapy and/or Counseling Cardiac Cath Procedure Full Procedure Date August 09, 2025 Pre-Procedure Diagnosis Pre-Procedure Diagnosis: Valvular Disease and Cardiothoracic Symptom (Dyspnea, pulmonary fibrosis) AUC Score AUC Score: NC Post-Procedure Diagnosis Post-Procedure Diagnosis: Normal Coronary Arteries, Normal LV Systolic Function (Hyperdynamic) and Elevated Intracardiac Pressures Procedure(s) Performed Procedure(s) Performed: Coronary Angiography, Left Heart Cath, Right Heart Cath, LV Angiography and Ultrasound Guided Vascular Access Stock Selector Patrice Johnston MD, PhD Estimated Blood Loss Estimated Blood Loss: 10 cc Medication(s) Medication(s): Fentanyl, Heparin, Lidocaine 1%, Nicardipine, Nitroglycerin and Versed Summary of Findings Brief description: Patient was brought to the cardiac catheterization suite where she was shaved and prepped in a sterile fashion. Sedated using IV Versed and fentanyl. Soft tissues of the right wrist were anesthetized using 2 mL of 1% Xylocaine. The right radial artery was accessed using a modified Seldinger technique and a 6 Uzbek radial artery glide sheath was placed. We next turned our attention to venous access for right heart cath. Patient had a large bore IV in the right antecubital fossa vein. Soft tissues around this were anesthetized with 1 mL of 1% Xylocaine. A 0.014 wire was advanced through the IV and this was exchanged for a 6 Uzbek venous sheath over this wire. We proceeded first with right heart cath. 6 Uzbek [place] catheter was advanced through the venous sheath and under fluoroscopic guidance with the balloon inflated was passed into the RV and then across the pulmonic valve where it was finally placed in the "wedge position". After the catheter was flushed the pulmonary catheter wedge pressure was obtained. The balloon was then deflated and the pulmonary arterial pressure and oxygen saturation sample were obtained. Oxygen saturation from the radial arteries sample was also obtained. [place] catheter was pulled back in the right ventricle or right ventricular hemodynamics were measured. Finally, the catheter was pulled back into the right atrium with right atrial pressure and oxygen saturation sample were obtained. The catheter was then removed from the patient. The cardiac output and index were determined by the method of Anali. We resumed the case returning to left heart cath, coronary angiography, and left ventriculogram. Patient was provided antispasmodics including nicardipine and nitroglycerin via the radial artery sheath. She was also provided IV heparin. All catheters were advanced and exchanged over a 0.035 J-tip wire via the right radial artery sheath. Left coronary angiography in orthogonal views using a 5 Uzbek [place] 4 diagnostic catheter. Right coronary angiography in orthogonal views using a 5 Uzbek [place] 4 diagnostic catheter. Left heart cath and left ventriculogram were obtained using a 5 Uzbek angled pigtail catheter. All diagnostic catheters were removed. Radial artery sheath was removed. Hemostasis was obtained using the TR band. Patient remained hemodynamically stable and asymptomatic. She was returned to the recovery area. This ended the case. Right heart cath findings: PCWP-16 mmHg PAP-52/24 mmHg, mean 34 mmHg RVP-49/5 mmHg, RVEDP 9 mmHg RAP-7 mmHg AO O2 sat-99% PA O2 sat-78% RA O2 sat 77% CO (Anali)-8.15 L/min CI (Anali)-4.54 L/min/m PVR-2.21 Vale units SVR-10.92 Vale units PVR-11.78 Vale units Coronary angiography and left ventriculogram findings: LXK-tmymn-tvkjgxo vessel trifurcating into LAD, ramus, and circumflex. No disease. LAD-large caliber and transapical. Proximal calcification with 20% stenosis. Mid and distal vessel have no angiographically evident disease. LAD provides a large branching D1 which has luminal irregularities. Ramus-this is small and without disease. LCx-large and nondominant. Travels in the AV groove giving a large caliber tortuous OM1, a small caliber OM 2, and a medium caliber tortuous posterolateral. The circumflex and its branches have no angiographically evident disease. RCA-large caliber and dominant. Branches distally into the PDA and posterolateral. These vessels and the RCA have no angiographically evident disease. LVG-EF>70% -2+ mitral regurgitation Summary: 1. Normal left sided filling pressures. 2. Elevated cardiac output and cardiac index secondary to hyperdynamic LV 3. Normal epicardial coronary arteries 4. Moderate pulmonary hypertension Hemodynamics Rest Ao:: 105/68 mmHg Final Ao: 117/74 mm of LV: 113/0 mmHg, LVEDP 16 mmHg Recommendations Recommendations: Medical Therapy and/or Counseling Radiation Exposure (mGy) 772 mGy, fluoroscopy time 5.6 minutes Contrast (mls) 85 cc Anesthesia 1 mg Versed, 50 mcg fentanyl IV. 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 Any exceptions are noted below. [facility] Card Cath Procedure Codes Cardiac Catheterization Procedure 1: Cardiovascular Cath Procedures: 97153 Coronaries & LHC (+/-LV) & RHC Moderate Sedation Procedure 1: Sedation/Anesthesia: 56883 Mod Sedation by the same physician;Init15 Min Child Age 5 & Up (Initial 15 minutes, start time 1055) Procedure 2: Sedation/Anesthesia: 09209 Mod Sedation by the same physician; Ea [id number] Minutes (Additional 10 minutes, end time 1120) PG Care Time/CCT Total # of Minutes Spent Total Time Spent with Patient: Total time spent is greater than 50% in coordination of care (as documented) at patient's floor/unit and/or counseling patient:
--- NOTE | 2025-08-09 17:41 | Pulmonology Progress Note ---
Date of Service August 09, 2025 Assessment & Plan (1) ILD (interstitial lung disease): (2) Acute and chronic respiratory failure with hypoxia: (3) Shortness of breath: (4) Chronic cough: Plan Patient is a 64-year-old female who was admitted to the hospital for cardiac evaluation. Pulmonary was consulted for CT findings concerning for ILD. Patient has what appears to be rapidly progressing interstitial lung disease of unclear etiology. CT chest shows GGO's and some fibrotic changes. Not consistent with UIP or IPF at this time. There is some mild adenopathy present. Broad differential, this would include hypersensitivity pneumonitis, acute interstitial pneumonitis, NSIP, acute fibrinous and organizing pneumonia, possible sarcoidosis, possible infectious ideology such as PJP. Patient does not have any history of autoimmune or connective tissue disorder. No premature aging in herself or her family members. No history of lung disease in her family. No previous history of lung disease prior to this year. No contact with birds or dust/environmental exposures. No history of tobacco use. Additional workup was ordered including CK, anti-Marizol, Sjogren's antibodies, [employer] TECHNICIAN antibody, SCL 70. ESR and CRP were unremarkable. Patient was started on steroids and Bactrim. PJP for sputum was ordered, patient is having minimal phlegm production so unsure if we will be able to collect this. Needs GI prophylaxis while she is on steroids with pantoprazole. Echo was revealing for mitral valve disease. She underwent left and right heart catheterization 08/09/2025 which showed normal LV filling pressures, hyperdynamic LV with elevated cardiac output and cardiac index. No evidence of obstructive coronary disease. EF greater than 70%. 2+ mitral regurgitation. Moderate pulmonary hypertension (mean PA pressure 34 mmHg, PCWP 16 mmHg, PVR 2.21 Vale units). Based on the patient's CT imaging and nonspecific serologic workup and unrevealing history at this time we would recommend that she be evaluated for lung biopsy. Can consider inpatient transfer or urgent outpatient referral. Will continue steroids and Bactrim. Will follow serology workup. Monitor sodium closely with Bactrim, if it continues to drop then she may need some salt tabs. Thank you for this consult. I will follow along with you. Admission and Anticipated Discharge Date Admission Date: August 07, 2025 Subjective Patient seen and examined's morning. She is feeling well, status post heart catheterization this morning. On 4 L of oxygen which is her home level. Continues to have chronic nonproductive cough. No worsening shortness of breath. Does get significantly short of breath if she ambulates. Review of Systems Review of Systems: Negative except as in HPI. Physical Exam Physical Exam: Physical examination: General: Well-appearing, well-nourished and not in acute distress. HEENT: Normocephalic, atraumatic. Extraocular movements intact. Sclera are nonicteric. No JVD appreciated. Skin: Warm and dry. No rashes appreciated. No jaundice appreciated. Cardiovascular: Murmur appreciated, slightly tachycardic. Lungs: On 4 L of oxygen, nonproductive cough present, nontachypneic. Velcro rales appreciated bilateral bases. No wheezing. Musculoskeletal: Normal muscle mass and tone. No gross joint deformity abnormalities. No effusions appreciated. Neurologic: Awake and alert, oriented. CN II through XII are grossly intact. Speech is fluent. Nonfocal exam. Psychiatric: Appropriate cooperative during my exam. Results & Data Results & Data Vital Signs (Past 12 Hours) Vital Signs Temp Pulse Pulse Resp BP Pulse Ox O2 Del Method 08/09/25 13:43 36.8 C 70 20 162/77 H 96 Nasal Cannula 08/09/25 13:03 36.8 C 73 18 137/69 98 Nasal Cannula 08/09/25 12:40 36.5 C 89 18 157/72 H 97 Nasal Cannula 08/09/25 12:13 36.7 C 80 18 166/76 H 94 Nasal Cannula 08/09/25 11:56 68 16 144/71 H 98 Room Air 08/09/25 11:40 70 16 156/79 H 99 Room Air 08/09/25 10:25 66 18 171/82 H 98 Nasal Cannula 08/09/25 08:00 Nasal Cannula 08/09/25 07:26 36.5 C 70 17 154/75 H 93 Nasal Cannula O2 Flow Rate 08/09/25 13:43 4 08/09/25 13:03 4 08/09/25 12:40 4 08/09/25 12:13 4 08/09/25 11:56 08/09/25 11:40 08/09/25 10:25 2 08/09/25 08:00 4 08/09/25 07:26 4 PG Care Time/CCT Total # of Minutes Spent Total Time Spent with Patient: Total time spent is greater than 50% in coordination of care (as documented) at patient's floor/unit and/or counseling patient: Coding Level of Care Code 62549 SUB INP/OBS CARE 2/35MIN Diagnoses ILD (interstitial lung disease) J84.9 Acute and chronic respiratory failure with hypoxia J96.21 Shortness of breath R06.02 Chronic cough R05.3
[2025-08-09] MEDS: METOPROLOL SUCC 25MG EXT REL TAB PO SCH (20:59)
[2025-08-10 06:52] LABS: Hematocrit (blood only) 32.4 % (37.0-47.0); Hemoglobin 11.2 g/dl (12.0-16.0); Immature Granulocytes # (auto) 0.05 K/uL (0.01-0.20); Immature Granulocytes % (auto) 0.4 %; Mean Corpuscular Hemoglobin 31.7 pg (25.0-34.0); Mean Corpuscular Volume 91.8 fL (80.0-100.0); Platelet Count 104 K/uL (130-400); RDW Standard Deviation 39.8 fL (36.4-46.3); Red Blood Count 3.53 M/uL (4.20-5.40); White Blood Count 12.49 K/ul (4.8-10.8)
[2025-08-10 08:41] LABS: Albumin Level 3.7 gm/dl (3.4-5.0); Anion Gap 8.0 (3-11); Bilirubin,Total 0.5 mg/dl (0.2-1.0); Calcium 8.9 mg/dl (8.6-10.3); Carbon Dioxide 22.0 mmol/L (21-32); Chloride 100.0 mmol/L (98-107); Magnesium 2.3 mg/dl (1.7-2.4); Potassium 4.8 mmol/L (3.5-5.1); Sodium 130.0 mmol/L (136-145)
[2025-08-10 08:47] LABS: Alanine Aminotransferase 12.0 U/L (7-52); Albumin Globulin Ratio 1.6 (0.9-2); Alkaline Phosphatase 35.0 U/L (34-104); Blood Urea Nitrogen 15.0 mg/dl (6-23); Creatinine Clr Calc Pharmacy 56.9 ml/min; Globulin 2.3 gm/dl (2.5-4.0); Glucose 139.0 mg/dl (70-99(Fasting)); Total Protein 6.0 gm/dl (6.0-8.3)
--- NOTE | 2025-08-10 10:39 | Cardiology Progress Note ---
Date of Service August 10, 2025 Assessment & Plan (1) Acute and chronic respiratory failure with hypoxia: (2) Shortness of breath: (3) ILD (interstitial lung disease): (4) Mitral regurgitation: (5) LVH (left ventricular hypertrophy): Plan JERRY Chest pain Moderate to severe mitral regurgitation LVH MOOK ILD Resp failure on 3L 02 HTN -Patient with severe JERRY with rapid progression -Patient appears euvolemic on examination -Echocardiogram repeated with moderate to severe mitral regurgitation, HCM with MOOK -Patient with moderate coronary artery calcification and risk factors for CAD -Recommend RHC/LHC for further investigation of JERRY. NPO after midnight -Appreciate pulmonology input 08/09/2025 64-year-old presenting with clinical history of rapidly progressive interstitial lung disease. Echocardiogram with moderate left ventricular hypertrophy, there hyperdynamic LV function with mid cavity obliteration. Aortic valve trileaflet with mild calcification and sclerosis, moderate late systolic mitral insufficiency. Systolic anterior mitral valve leaflet motion present due to hyperdynamic contractility at mid level of the ventricle Euvolemic on exam with audible systolic murmur. No augmentation with Valsalva maneuver Pulmonary exam consistent with interstitial lung disease with diffuse fine crackles. Pulmonary treatment plan in progress. Right and left heart catheterization to be performed today as part of staging Given hyperdynamic LV function may benefit from low-dose beta-leah if pulmonary status will tolerate Hold lisinopril given hyponatremia 08/10/2025 64-year-old female admitted with rapidly progressive interstitial lung disease, hyperdynamic LV function with moderate mitral sufficiency. Heart murmur consistent with aortic sclerosis. Cardiac catheterization demonstrates no obstructive coronary disease with hyperdynamic LV function and moderate mitral insufficiency at greatest. Moderate pulmonary hypertension Recommendations: Continue pulmonary investigations possible tertiary center Continue to hold lisinopril given hyponatremia and hyperdynamic LV function Continue low-dose beta-leah with metoprolol succinate 12.5 mg twice per day for diastolic dysfunction, hypercontractility ventricle Consider low-dose amlodipine if blood pressure persistently elevated Admission and Anticipated Discharge Date Admission Date: August 07, 2025 Subjective Patient was seen and personally examined, chart, telemetry reviewed. Per patient feels somewhat improved today as clearing secretions with cough. Still dyspneic with minimal activity. No chest pain or chest discomfort. Tolerated coronary angiography, right and left heart cath yesterday. Review of Systems Review of Systems: All systems reviewed & are unremarkable except as noted in Subjective Physical Exam Constitutional: WD/WN, vitals as above no acute distress Eyes: PERRL, conjunctivae normal, anicteric sclerae Neck: trachea midline, no thyromegaly Respiratory: normal respiratory effort and + cough; no respiratory distress Auscultation: + crackles (Bibasilar); no wheezes Cardiovascular: Rate/Rhythm: regular rate and regular rhythm Heart Sounds: normal S1, normal S2 and + murmur (Grade 2/6 to 3/6 systolic murmur without augmentation with Valsalva) Vessels: no JVD Extremities: no edema Right radial artery and right brachial vein access sites healing well Gastrointestinal (Abdomen): normal bowel sounds, soft, nontender, no hepatos plenomegaly Skin: no rashes, warm and dry Psychiatric: A+Ox3, euthymic affect Results & Data Vital Signs (Past 12 Hours) Vital Signs Temp Pulse Resp BP Pulse Ox O2 Del Method O2 Flow Rate 08/10/25 09:00 Nasal Cannula 4 08/10/25 07:32 36.5 C 68 16 150/78 H 98 Nasal Cannula 4 08/10/25 04:32 36.6 C 63 17 137/75 97 Nasal Cannula 4 08/09/25 23:26 36.7 C 73 17 167/82 H 97 Nasal Cannula 4 Laboratory Results Laboratory Results - last 24 hr 08/09/25 08/09/25 08/09/25 11:08 11:08 11:08 WBC RBC Hgb POC Hgb 11.6 L 11.6 L Hct POC Hct 34 L 34 L MCV MCH MCHC RDW Std Deviation RDW Coeff of June Plt Count MPV Immature Gran % (Auto) Neut % (Auto) Lymph % (Auto) [place] % (Auto) Eos % (Auto) Baso % (Auto) Neut # (Auto) Lymph # (Auto) [place] # (Auto) Eos # (Auto) Baso # (Auto) Immature Gran # (Auto) POC pH 7.37 POC pCO2 POC pO2 POC HCO3 POC Total CO2 POC Base Excess POC ABG O2 Sat POC Sodium Sodium POC Potassium Potassium Chloride Carbon Dioxide Anion Gap BUN Creatinine Est Cr Clr Drug Dosing eGFR BUN/Creatinine Ratio Glucose Calcium Phosphorus Magnesium Total Bilirubin AST ALT Alkaline Phosphatase Total Protein Albumin Globulin Albumin/Globulin Ratio 08/09/25 08/09/2508/09/25 11:08 11:08 11:08 WBC RBC Hgb POC Hgb Hct POC Hct MCV MCH MCHC RDW Std Deviation RDW Coeff of June Plt Count MPV Immature Gran % (Auto) Neut % (Auto) Lymph % (Auto) [place] % (Auto) Eos % (Auto) Baso % (Auto) Neut # (Auto) Lymph # (Auto) [place] # (Auto) Eos # (Auto) Baso # (Auto) Immature Gran # (Auto) POC pH 7.41 POC pCO2 39 33 L POC pO2 44 L 152 H POC HCO3 22 POC Total CO2 POC Base Excess POC ABG O2 Sat POC Sodium Sodium POC Potassium Potassium Chloride Carbon Dioxide Anion Gap BUN Creatinine Est Cr Clr Drug Dosing eGFR BUN/Creatinine Ratio Glucose Calcium Phosphorus Magnesium Total Bilirubin AST ALT Alkaline Phosphatase Total Protein Albumin Globulin Albumin/Globulin Ratio 08/09/25 08/09/25 08/09/25 11:08 11:08 11:08 WBC RBC Hgb POC Hgb Hct POC Hct MCV MCH MCHC RDW Std Deviation RDW Coeff of June Plt Count MPV Immature Gran % (Auto) Neut % (Auto) Lymph % (Auto) [place] % (Auto) Eos % (Auto) Baso % (Auto) Neut # (Auto) Lymph # (Auto) [place] # (Auto) Eos # (Auto) Baso # (Auto) Immature Gran # (Auto) POC pH POC pCO2 POC pO2 POC HCO3 21 POC Total CO2 23 L 22 L POC Base Excess -3.0 -4.0 POC ABG O2 Sat 78.0 L POC Sodium Sodium POC Potassium Potassium Chloride Carbon Dioxide Anion Gap BUN Creatinine Est Cr Clr Drug Dosing eGFR BUN/Creatinine Ratio Glucose Calcium Phosphorus Magnesium Total Bilirubin AST ALT Alkaline Phosphatase Total Protein Albumin Globulin Albumin/Globulin Ratio 08/09/25 08/09/25 08/09/25 11:08 11:08 11:08 WBC RBC Hgb POC Hgb Hct POC Hct MCV MCH MCHC RDW Std Deviation RDW Coeff of June Plt Count MPV Immature Gran % (Auto) Neut % (Auto) Lymph % (Auto) [place] % (Auto) Eos % (Auto) Baso % (Auto) Neut # (Auto) Lymph # (Auto) [place] # (Auto) Eos # (Auto) Baso # (Auto) Immature Gran # (Auto) POC pH POC pCO2 POC pO2 POC HCO3 POC Total CO2 POC Base Excess POC ABG O2 Sat 99.0 H POC Sodium 130 L 131 L Sodium POC Potassium 3.7 3.7 Potassium Chloride Carbon Dioxide Anion Gap BUN Creatinine Est Cr Clr Drug Dosing eGFR BUN/Creatinine Ratio Glucose Calcium Phosphorus Magnesium Total Bilirubin AST ALT Alkaline Phosphatase Total Protein Albumin Globulin Albumin/Globulin Ratio 08/09/25 08/10/25 11:12 06:30 WBC 12.49 H RBC 3.53 L Hgb 11.2 L POC Hgb 11.9 L Hct 32.4 L POC Hct 35 L MCV 91.8 MCH 31.7 MCHC 34.6 RDW Std Deviation 39.8 RDW Coeff of June 11.9 Plt Count 104 L MPV 10.5 Immature Gran % (Auto) 0.4 Neut % (Auto) 89.7 Lymph % (Auto) 7.2 [place] % (Auto) 2.6 Eos % (Auto) 0.0 Baso % (Auto) 0.1 Neut # (Auto) 11.21 H Lymph # (Auto) 0.90 L [place] # (Auto) 0.32 Eos # (Auto) 0.00 Baso # (Auto) 0.01 Immature Gran # (Auto) 0.05 POC pH 7.37 POC pCO2 37 POC pO2 42 L POC HCO3 22 POC Total CO2 23 L POC Base Excess -4.0 POC ABG O2 Sat 77.0 L POC Sodium 131 L Sodium 130 L POC Potassium 3.7 Potassium 4.8 Chloride 100 Carbon Dioxide 22 Anion Gap 8 BUN 15 Creatinine 0.96 Est Cr Clr Drug Dosing 56.9 eGFR 66.90 BUN/Creatinine Ratio 15.6 Glucose 139 H Calcium 8.9 Phosphorus 3.0 Magnesium 2.3 Total Bilirubin 0.5 AST 18 ALT 12 Alkaline Phosphatase 35 Total Protein 6.0 Albumin 3.7 Globulin 2.3 L Albumin/Globulin Ratio 1.6 PG Care Time/CCT Total # of Minutes Spent Total Time Spent with Patient: Total time spent is greater than 50% in coordination of care (as documented) at patient's floor/unit and/or counseling patient: Coding Level of Care Code 95190 SUB INP/OBS CARE 3/50MIN Diagnoses Acute and chronic respiratory failure with hypoxia J96.21 Shortness of breath R06.02 ILD (interstitial lung disease) J84.9 Mitral regurgitation I34.0 LVH (left ventricular hypertrophy) I51.7
--- NOTE | 2025-08-10 12:56 | Hospitalist Progress Note ---
Date of Service August 10, 2025 Assessment & Plan (1) Shortness of breath: Plan Possible Interstitial Lung disease, ?crytogenic pneumonia URI-like symptoms started around end of May and received a course of Levaquin for 2 weeks without any improvement. Shortness of breath continued and was admitted in the hospital at [place] and received a course of intravenous vancomycin and also at that time given lisinopril and amlodipine to control blood pressure. Later on she was also started with 40 mg prednisone and during this time she was having hyponatremia. Her symptoms of shortness of breath and chest tightness persisted. - CTA on admission showing heart enlargement, moderate coronary calcification, no pericardial effusion, mild reactive appearing lymph nodes. vascular calcifications on CT in the aorta and coronary arteries were seen on previous CTA at [facility] as well. - Discussed care with ELENITA Foley with [facility] regarding recent outpatient test. - Consult pulmonology, Dr. Grijalva - possible bronchoscopy needed during this admission - Recently had outpatient MARY, ANCA and was negative per [facility] pulevelyn. She was scheduled for outpatient PFTs and CTA but hasn't happened yet - Check coccidioses, fungitel beta 1 glucan, HIV, legionella, sputum culture, LDH, ESR, CRP, peripheral smear - RVP biofire is negative - Echo 07/12/25: [facility] report - EF of 55-60%, RV cavity size mildly dilated, systolic pressure mildly elevated, mitral valve mildly calcified, mild regurgitation, mildly thickened mitral leaflets, pulmonic valve mild regurgitation. -Hold prednisone 40 mg daily which she has been on for about 2 week. await pulm recommendations She remains very anxious and is still symptomatic with chest tightness, shortness of breath at rest and requiring up to 4 L to maintain saturation She has been getting intravenous ceftriaxone and azithromycin for possible interstitial pneumonia Appreciate pulmonary input and recommendation Has significant lung fibrosis with the worst number of differentials and PJP is not ruled out She has started with intravenous Solu-Medrol and intravenous Bactrim Sputum PJP and may need bronchoscopy and lavage for the same-she has been feeling a little better Feels a little better since intravenous Solu-Medrol and Bactrimsputum Gram stain remain negative Discussed with water pump installer and was advised to transfer the patient to tertiary care center for lung biopsy and further management of the condition Discussed with our water pump installer [facility] Mueller and suggested that the patient should be transferred to [facility] for lung biopsy and subsequent management of her condition Discussed with the patient and the family members and they are agreeable to initiate the process of transfer Transfer process Transfer process to [facility] initiated No bed in [facility] but [facility] was contracted and was advised to continue with current management to help the patient improved and they can evaluate her as an outpatient for possible lung biopsy down the line. With her current respiratory status it would be very high risk to do any kind of biopsy. Discussed that with the water pump installer and the patient. The transfer process is closed now Upper chest tightness r/o CMP/ACS Associated with shortness of breath without any evidence of fluid overload and no edema and/or weight gain Troponin minimally elevated Has significant murmur Echo was done on 07/12/2025 as above and we will repeat an echo during this admission Appreciate cardiology input and recommendation Cardiac cath showed nonobstructive coronary disease with hyperdynamic LV function and moderate mitral insufficiency with moderate pulmonary hypertension Will discontinue lisinopril and continue with metoprolol succinate 12.5 mg daily and aspirin 81 mg Hyponatremia - 122 on admission - NS 1L total at 100 ml/hr, possible prerenal or lasix induced etiology. - Hold lisinopril/hctz for now -Could be secondary to atypical pneumonia Will monitor.-Sodium level has gone up to 131 Note from admitting team: Discussed with Belinda KWONG with [facility] via phone for the following records/results from recent hospitalization at [facility] as well as studies conducted in outpatient setting: PT symptoms started in May, where she was seen by PCP and given oral antibiotics levofloxacin 500 mg x 14 days, no symptom improvement. CT chest at that time showed ground glass opacities. She was admitted to [facility] from 07/10-07/16 where she was given Iv vancomycin, amongst other scans and a cardiac stress test which was read as normal. Echo showed severely dilated RV and EF of 55%, mild mitral regurgitation. RVSP 36. Sodium during that stay was around 130 consistently. During that stay is where she was told her heart was looking more like heart failure and was placed on amlodipine 5 mg and lisinopril 40 mg. She is still taking these medications. Recently she was also placed on lasix 40 mg daily. Pt has been following with [facility] as outpatient on 07/20/25. The patient was seen by water pump installer at [facility], Belinda KWONG, on follow up. She was started on prednisone 40 mg daily for about 2 weeks. Pulse ox was slightly improved on RA and was only requiring 2 L with exertional activity. hypersensitivity pneumonitis rule out per pulm. ANCA and MARY testing negative dSNA ab neg, SUSY antibodies screen interpretation negative Angiotensin converting enzyme negative Aspergillus negative Micropolyspora faeni, pigeon serum, T. candidus, T, vulgaris, S. Viridis all negative. Rh Factor negative CCP IgG negative Proteinase 3 ab negative Myeloperoxidase Ab negative May call Belinda Rapp at [phone] with [facility] if questions. DVT ppx:teds, scds Lines: PIV x 1 CODE: FULL Dispo: From home, likely to remain in the hospital x 1-2 days Admission and Anticipated Discharge Date Admission Date: August 07, 2025 Subjective 08/08/2025 The patient was seen and examined in telemetry unit She has been complaining of ongoing shortness of breath and chest tightness with any activities and also during conversation Very anxious but denies any abdominal pain, nausea and or vomiting Does not have any swelling of the legs and no weight gain 08/09/2025 Patient was seen and examined in telemetry unit She feels a little better but he still has respiratory distress and upper chest tightness at rest Has been requiring 4 L to maintain saturations 08/10/2025 The patient was seen and examined in telemetry unit in presence of the family members She has been feeling little better but is still looks very distressed with short of breath at rest Requiring 4 L via nasal cannula to maintain saturation Cough has improved and denies any chest pain Review of Systems Review of Systems: All systems reviewed and are unremarkable except as noted below Physical Exam Physical Exam: Lying in bed with acute distress due to shortness of breath Constitutional: + ill appearing and average body habitus Eyes: PERRL, conjunctivae normal, anicteric sclerae ENMT: external ear and nose normal, oropharynx normal Neck: trachea midline, no thyromegaly Respiratory: + respiratory distress Auscultation: + diminished lung sounds, + crackles (Bibasilar crackles) and + wheezes (Minimal wheezing bilaterally) Cardiovascular: Rate/Rhythm: regular rate and regular rhythm; not tachycardic Heart Sounds: normal S1, normal S2 and + murmur (3/5 ESM over precordium) Extremities: no edema Gastrointestinal (Abdomen): Inspection/Auscultation: normal bowel sounds; abdomen not distended Percussion/Palpation: abdomen soft; abdomen nontender Musculoskeletal: No acute arthritis involving any of the joint Neurologic: normal touch/pain/proprioception and moves all extremities; no focal motor deficits Lymphatic: no cervical or axillary lymphadenopathy Results & Data Results & Data Vital Signs (Past 12 Hours) Vital Signs Temp Pulse Pulse Resp BP Pulse Ox O2 Del Method 08/10/25 11:11 36.8 C 107 H 18 142/69 H 97 Nasal Cannula 08/10/25 09:00 Nasal Cannula 08/10/25 07:32 36.5 C 68 16 150/78 H 98 Nasal Cannula 08/10/25 04:32 36.6 C 63 17 137/75 97 Nasal Cannula O2 Flow Rate 08/10/25 11:11 4 08/10/25 09:00 4 08/10/25 07:32 4 08/10/25 04:32 4 Laboratory Results Short CBC 08/10/25 Range/Units 06:30 WBC 12.49 H (4.8-10.8) K/ul Hgb 11.2 L (12.0-16.0) g/dl Hct 32.4 L (37.0-47.0) % Plt Count 104 L (130-400) K/uL BMP 08/10/25 06:30 Sodium 130 L Potassium 4.8 Chloride 100 Carbon Dioxide 22 BUN 15 Creatinine 0.96 Glucose 139 H Calcium 8.9 Liver Function 08/10/25 Range/Units 06:30 Total Bilirubin 0.5 (0.2-1.0) mg/dl AST 18 (13-39) U/L ALT 12 (7-52) U/L Alkaline Phosphatase 35 (34-104) U/L Albumin 3.7 (3.4-5.0) gm/dl Medications Administered Current Inpatient Medications Acetaminophen (Acetaminophen 325 Mg Tab) 650 mg PO Q4H PRN PRN Reason: Moderate Pain (Scale 4, 5, 6) Stop: 09/06/25 21:37 Albuterol (Albut/Ipratrop 3mg/0.5mg Neb 3 Ml Vial) 3 ml NEB Q6R PRN; Protocol PRN Reason: Shortness Of Breath Or Wheezing Stop: 09/06/25 20:30 Guaifenesin/Codeine Phosphate (Guaifenesin/Codeine 100mg/10mg 5ml Udc) 10 ml PO HS [facility] Stop: 09/06/25 21:37 Last Admin: 08/09/25 20:58 Dose: 10 ml Trimethoprim/Sulfamethoxazole (350 mg/ Dextrose) 521.875 mls @ 347.917 mls/hr IV Q8H [facility] Stop: 08/14/25 00:00 Last Infusion: 08/10/25 11:03 Dose: Infused Methylprednisolone 40 mg/ (Syringe) 0.64 mls @ 1.5 mls/min IV BID [facility] Stop: 09/07/25 20:59 Last Admin: 08/10/25 09:05 Dose: 1.5 mls/min Metoprolol Succinate (Metoprolol Succ 25mg Ext Rel Tab) 12.5 mg PO BID K[facility]ACE Stop: 09/08/25 20:59 Last Admin: 08/10/25 09:03 Dose: 12.5 mg Ondansetron HCl (Ondansetron Inj 2 Mg/Ml 2 Ml Vial) 4 mg IV Q4H PRN PRN Reason: Nausea And Vomiting Stop: 09/06/25 21:37 Pantoprazole Sodium (Pantoprazole 40 Mg Tab) 40 mg PO BID [facility] Stop: 09/07/25 20:59 Last Admin: 08/10/25 09:03 Dose: 40 mg
--- NOTE | 2025-08-10 13:14 | Pulmonology Progress Note ---
Date of Service August 10, 2025 Assessment & Plan (1) ILD (interstitial lung disease): (2) Acute and chronic respiratory failure with hypoxia: (3) Shortness of breath: (4) Chronic cough: Plan Patient is a 64-year-old female who was admitted to the hospital for cardiac evaluation. Pulmonary was consulted for CT findings concerning for ILD. Patient has what appears to be rapidly progressing interstitial lung disease of unclear etiology. CT chest shows GGO's and some fibrotic changes. Not consistent with UIP or IPF at this time. There is some mild adenopathy present. Broad differential, this would include hypersensitivity pneumonitis, acute interstitial pneumonitis, NSIP, acute fibrinous and organizing pneumonia, possible sarcoidosis, possible infectious ideology such as PJP. Patient does not have any history of autoimmune or connective tissue disorder. No premature aging in herself or her family members. No history of lung disease in her family. No previous history of lung disease prior to this year. No contact with birds or dust/environmental exposures. No history of tobacco use. 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 ESR and CRP were unremarkable. Patient was started on steroids and Bactrim. PJP for sputum was ordered, patient is having more phlegm production today and sputum Was placed at bedside. Needs GI prophylaxis while she is on steroids with pantoprazole. Echo was revealing for mitral valve disease. She underwent left and right heart catheterization 08/09/2025 which showed normal LV filling pressures, hyperdynamic LV with elevated cardiac output and cardiac index. No evidence of obstructive coronary disease. EF greater than 70%. 2+ mitral regurgitation. Moderate pulmonary hypertension (mean PA pressure 34 mmHg, PCWP 16 mmHg, PVR 2.21 Vale units). He has been initiated on metoprolol per cardiology. Based on the patient's CT imaging and nonspecific serologic workup and unrevealing history at this time we would recommend that she be evaluated for lung biopsy. Can consider inpatient transfer or urgent outpatient referral. Would need to be evaluated by thoracic surgery or interventional pulmonology for VATS lung biopsy. Will continue steroids and Bactrim. Will follow serology workup. Monitor sodium closely with Bactrim, if it continues to drop then she may need some salt tabs. Will follow sputum sample. Thank you for this consult. I will follow along with you. Admission and Anticipated Discharge Date Admission Date: August 07, 2025 Subjective Patient seen and examined during bedside rounds today. Patient is feeling okay, her family is at bedside and she is in good spirits. Both son and are present. Remains on 4 L of oxygen. Still having dyspnea on exertion but is able to get up and do some exercises at the edge of the bed. Having more phlegm production today, no fevers. Review of Systems Review of Systems: Negative except as in HPI. Physical Exam Physical Exam: Physical examination: General: Well-appearing, well-nourished and not in acute distress. HEENT: Normocephalic, atraumatic. Extraocular movements intact. Sclera are nonicteric. No JVD appreciated. Skin: Warm and dry. No rashes appreciated. No jaundice appreciated. Cardiovascular: Murmur appreciated, slightly tachycardic. Lungs: On 4 L of oxygen, nonproductive cough present, nontachypneic. Velcro rales appreciated bilateral bases. No wheezing. Musculoskeletal: Normal muscle mass and tone. No gross joint deformity abnor malities. No effusions appreciated. Neurologic: Awake and alert, oriented. CN II through XII are grossly intact. Speech is fluent. Nonfocal exam. Psychiatric: Appropriate cooperative during my exam. Results & Data Results & Data Vital Signs (Past 12 Hours) Vital Signs Temp Pulse Pulse Resp BP Pulse Ox O2 Del Method 08/10/25 11:11 36.8 C 107 H 18 142/69 H 97 Nasal Cannula 08/10/25 09:00 Nasal Cannula 08/10/25 07:32 36.5 C 68 16 150/78 H 98 Nasal Cannula 08/10/25 04:32 36.6 C 63 17 137/75 97 Nasal Cannula O2 Flow Rate 08/10/25 11:11 4 08/10/25 09:00 4 08/10/25 07:32 4 08/10/25 04:32 4 PG Care Time/CCT Total # of Minutes Spent Total Time Spent with Patient: Total time spent is greater than 50% in coordination of care (as documented) at patient's floor/unit and/or counseling patient: Coding Level of Care Code 06282 SUB INP/OBS CARE 2/35MIN Diagnoses ILD (interstitial lung disease) J84.9 Acute and chronic respiratory failure with hypoxia J96.21 Shortness of breath R06.02 Chronic cough R05.3
[2025-08-10] MEDS: HEPARIN SOD 5,000 UNIT/0.5 ML VIAL SQ SCH (20:41)
[2025-08-11 07:13] LABS: Anion Gap 7.0 (3-11); Blood Urea Nitrogen 18.0 mg/dl (6-23); Calcium 9.0 mg/dl (8.6-10.3); Carbon Dioxide 24.0 mmol/L (21-32); Chloride 99.0 mmol/L (98-107); Creatinine Clr Calc Pharmacy 61.4 ml/min; Glucose 121.0 mg/dl (70-99(Fasting)); Magnesium 2.4 mg/dl (1.7-2.4); Potassium 4.9 mmol/L (3.5-5.1); Sodium 130.0 mmol/L (136-145)
[2025-08-11 07:27] LABS: Hematocrit (blood only) 32.1 % (37.0-47.0); Hemoglobin 11.4 g/dl (12.0-16.0); Immature Granulocytes # (auto) 0.06 K/uL (0.01-0.20); Immature Granulocytes % (auto) 0.4 %; Mean Corpuscular Hemoglobin 32.2 pg (25.0-34.0); Mean Corpuscular Volume 90.7 fL (80.0-100.0); Platelet Count 97 K/uL (130-400); RDW Standard Deviation 39.6 fL (36.4-46.3); Red Blood Count 3.54 M/uL (4.20-5.40); White Blood Count 14.53 K/ul (4.8-10.8)
--- NOTE | 2025-08-11 07:42 | Pulmonology Progress Note ---
Date of Service August 11, 2025 Assessment & Plan (1) ILD (interstitial lung disease): (2) Acute and chronic respiratory failure with hypoxia: (3) Shortness of breath: (4) Chronic cough: Plan Patient is a 64-year-old female who was admitted to the hospital for cardiac evaluation. Pulmonary was consulted for CT findings concerning for ILD. Patient has what appears to be rapidly progressing interstitial lung disease of unclear etiology. CT chest shows GGO's and some fibrotic changes. Not consistent with UIP or IPF at this time. There is some mild adenopathy present. Broad differential, this would include hypersensitivity pneumonitis, acute interstitial pneumonitis, NSIP, acute fibrinous and organizing pneumonia, possible sarcoidosis, possible infectious ideology such as PJP. Patient does not have any history of autoimmune or connective tissue disorder. No premature aging in herself or her family members. No history of lung disease in her family. No previous history of lung disease prior to this year. No contact with birds or dust/environmental exposures. No history of tobacco use. Additional workup was ordered including anti-Marizol antibody, SSA/SSB antibody, VAULT PERSON antibody and SCL 70 antibody which were all negative. ESR and CRP were unremarkable. Patient was started on steroids and Bactrim. LDH remains elevated at 353 (was 342 on 08/07/2025). PJP for sputum was ordered, patient is having more phlegm production today and sputum Was placed at bedside. PJP is pending. Acid-fast sputum culture smear is negative, culture pending. Routine bacterial culture from sputum showing moderate normal nam. Needs GI prophylaxis while she is on steroids with pantoprazole. Echo was revealing for mitral valve disease. She underwent left and right heart catheterization 08/09/2025 which showed normal LV filling pressures, hyperdynamic LV with elevated cardiac output and cardiac index. No evidence of obstructive coronary disease. EF greater than 70%. 2+ mitral regurgitation. Moderate pulmonary hypertension (mean PA pressure 34 mmHg, PCWP 16 mmHg, PVR 2.21 Vale units). He has been initiated on metoprolol per cardiology. Based on the patient's CT imaging and nonspecific serologic workup and unrevealing history at this time we would recommend that she be evaluated for lung biopsy. Transfer was attempted yesterday. [facility] declined transfer as they would not perform a lung biopsy as he believes that the patient has an acute pneumonia which needs to be treated first. Will continue steroids and Bactrim. Will follow serology workup. Monitor sodium closely with Bactrim, if it continues to drop then she may need some salt tabs. Will follow sputum sample and PJP results. Thank you for this consult. I will follow along with you. Admission and Anticipated Discharge Date Admission Date: August 07, 2025 Subjective Patient seen and examined's morning. Her breathing is unchanged compared to yesterday. She is still requiring 4 L of oxygen, still gets dyspnea if she is doing any sort of activity. Having more phlegm production, has a sputum sample at bedside. No fevers or chills. Review of Systems Review of Systems: Negative except as in HPI. Physical Exam Physical Exam: Physical examination: General: Well-appearing, well-nourished and not in acute distress. HEENT: Normocephalic, atraumatic. Extraocular movements intact. Sclera are nonicteric. No JVD appreciated. Skin: Warm and dry. No rashes appreciated. No jaundice appreciated. Cardiovascular: Murmur appreciated, slightly tachycardic. Lungs: On 4 L of oxygen, nonproductive cough present, nontachypneic. Velcro rales appreciated bilateral bases. No wheezing. Musculoskeletal: Normal muscle mass and tone. No gross joint deformity abnormalities. No effusions appreciated. Neurologic: Awake and alert, oriented. CN II through XII are grossly intact. Speech is fluent. Nonfocal exam. Psychiatric: Appropriate cooperative during my exam. Results & Data Results & Data Vital Signs (Past 12 Hours) Vital Signs Temp Pulse Pulse Resp BP Pulse Ox O2 Del Method 08/11/25 03:55 36.6 C 57 L 18 150/71 H 97 Nasal Cannula 08/10/25 22:54 36.8 C 60 18 151/79 H 97 Nasal Cannula 08/10/25 21:44 62 08/10/25 20:50 Nasal Cannula O2 Flow Rate 08/11/25 03:55 4 08/10/25 22:54 4 08/10/25 21:44 08/10/25 20:50 4 PG Care Time/CCT Total # of Minutes Spent Total Time Spent with Patient: Total time spent is greater than 50% in coordination of care (as documented) at patient's floor/unit and/or counseling patient: Coding Level of Care Code 11673 SUB INP/OBS CARE 235MIN Diagnoses ILD (interstitial lung disease) J84.9 Acute and chronic respiratory failure with hypoxia J96.21 Shortness of breath R06.02 Chronic cough R05.3
--- NOTE | 2025-08-11 09:19 | XRay Report ---
XR chest 1V portable CLINICAL HISTORY: Hypoxia COMPARISON STUDY: 08/07/2025 FINDINGS: Stable cardiomegaly with mild pulmonary vascular congestion. There is increased patchy opac ity at the mid and lower lungs. No pleural effusion or pneumothorax seen. IMPRESSION: Increased bilateral pneumonia. ACT 112: Negative or not required by law. Electronically signed by: Sandeep Dorsey M.D. 08/11/2025 9:18 AM
--- NOTE | 2025-08-11 12:45 | Hospitalist Progress Note ---
Date of Service August 11, 2025 Assessment & Plan (1) Shortness of breath: Plan Acute on chronic respiratory failure with hypoxia Interstitial lung disease Suspected multifocal pneumonia/pneumonitis DD: Hypersensitivity pneumonitis, interstitial pneumonitis, fibrosis with organizing pneumonia, sarcoidosis, PJP infection, NSIP Chronic cough --Chest CTA:No evidence for pulmonary embolism. Multifocal, patchy coarse as well as ground glass opacities with a lower lung predominance, consistent with interstitial lung disease, indeterminate for UIP, possibly representing chronic hypersensitivity pneumonitis, or cryptogenic organizing pneumonia. The areas of ground glass density suggest an acute inflammatory component in addition to the fibrotic change. An atypical infectious process superimposed would be difficult to entirely exclude, however the appearance suggests active ILD. - Recently had outpatient MARY, ANCA and was negative per [place] [facility]. She was scheduled for outpatient PFTs but hasn't happened yet --Sputum culture showed moderate normal nam. Sputum for acid-fast bacilli negative. Culture pending - Workup for Coccidioides antibody, Fungitell, histoplasma/Blastomyces, PJP pending -Anti-Marizol antibody, SSA/SSB antibody, REGISTERED NURSE STEP DOWN antibody and SCL 70 antibody, ANCA and MARY which were all negative. ESR and CRP were unremarkable. --dSNA ab neg, SUSY antibodies screen interpretation negative. Angiotensin converting enzyme negative. Aspergillus negative. Micropolyspora faeni, pigeon serum, T. candidus, T, vulgaris, S. Viridis all negative. . Rh Factor negative. CCP IgG negative. Proteinase 3 ab negative. Myeloperoxidase Ab negative -- Respiratory BioFire negative Continue Solu-Medrol 40 mg twice a day Continue Bactrim Appreciate pulmonology input Nebs as needed Follows with Belinda Rapp at [phone] with [place] [facility] Patient will require possible lung biopsy by CT surgery eventually likely as outpatient Continue supplemental oxygen as needed Will need 2 step prior to discharge Chest pain Severe mitral regurgitation LVH Moderate pulmonary hypertension -S/P cardiac catheterization showed no obstructive coronary disease --ECHO:Left ventricle systolic function is normal. EF 60 to 65%. Grade 1 diastolic dysfunction. Mild pulmonic valve regurgitation. Moderate to severe mitral regurgitation. There is systolic anterior motion of the mitral valve. Mild tricuspid regurgitation. Hold lisinopril as recommended by cardiology Continue metoprolol succinate 12.5 mg twice a day Appreciate cardiology input Thrombocytopenia No acute bleeding issues Monitor platelet count Hyponatremia Presented with sodium level 122 Likely due to diuretics Urine for Legionella negative HCTZ, Lasix on hold Hold lisinopril as well Sodium improved to 130 Monitor DVT Px: Heparin SQ CODE STATUS Full code Admission and Anticipated Discharge Date Admission Date: August 07, 2025 Subjective Patient is seen and examined at bedside States having dyspnea on minimal exertion Also states feeling tired and has cough with expectoration Denies any chest pain, nausea, vomiting, abdominal pain No other complaints Review of Systems Review of Systems: All systems reviewed & are unremarkable except as noted in Subjective Physical Exam Physical Exam: Physical Exam: Vitals signs as noted above General Appearance:Moderately built and nourished, no apparent distress Head: normocephalic, Atraumatic Eyes: normal inspection, EOMI Neck: supple, Trachea midline Respiratory/Chest: Normal breath sounds, + basal crackles, No accessory muscle use Cardiovascular: S1, S2, +murmur Abdomen/GI:Soft, Non tender, Bowel sounds present Extremities/Musculoskeletal:normal inspection, no edema Neurologic/Psych:AAOX3, grossly no focal neurological deficits Skin: normal color, warm Results & Data Results & Data Vital Signs (Past 12 Hours) Vital Signs Temp Pulse Pulse Resp BP Pulse Ox O2 Del Method 08/11/25 11:06 36.8 C 67 18 149/71 H 94 Nasal Cannula 08/11/25 07:56 36.3 C L 70 19 123/69 92 Nasal Cannula 08/11/25 05:58 53 L 08/11/25 03:55 36.6 C 57 L 18 150/71 H 97 Nasal Cannula O2 Flow Rate 08/11/25 11:06 4 08/11/25 07:56 4 08/11/25 05:58 08/11/25 03:55 4 Laboratory Results Short CBC 08/11/25 Range/Units 06:06 WBC 14.53 H (4.8-10.8) K/ul Hgb 11.4 L (12.0-16.0) g/dl Hct 32.1 L (37.0-47.0) % Plt Count 97 L (130-400) K/uL BMP 08/11/25 06:06 Sodium 130 L Potassium 4.9 Chloride 99 Carbon Dioxide 24 BUN 18 Creatinine 0.89 Glucose 121 H Calcium 9.0
[2025-08-12 07:34] LABS: Anion Gap 8.0 (3-11); Blood Urea Nitrogen 21.0 mg/dl (6-23); Calcium 9.2 mg/dl (8.6-10.3); Carbon Dioxide 23.0 mmol/L (21-32); Chloride 97.0 mmol/L (98-107); Creatinine Clr Calc Pharmacy 59.4 ml/min; Glucose 112.0 mg/dl (70-99(Fasting)); Potassium 5.1 mmol/L (3.5-5.1); Sodium 128.0 mmol/L (136-145)
--- NOTE | 2025-08-12 11:54 | Pulmonology Progress Note ---
Date of Service August 12, 2025 Assessment & Plan (1) ILD (interstitial lung disease): (2) Acute and chronic respiratory failure with hypoxia: (3) Shortness of breath: (4) Chronic cough: Plan Patient is a 64-year-old female who was admitted to the hospital for cardiac evaluation. Pulmonary was consulted for CT findings concerning for ILD. Patient has what appears to be rapidly progressing interstitial lung disease of unclear etiology. CT chest shows GGO's and some fibrotic changes. Not consistent with UIP or IPF at this time. There is some mild adenopathy present. Broad differential, this would include hypersensitivity pneumonitis, acute interstitial pneumonitis, NSIP, acute fibrinous and organizing pneumonia, possible sarcoidosis, possible infectious ideology such as PJP. Patient does not have any history of autoimmune or connective tissue disorder. No premature aging in herself or her family members. No history of lung disease in her family. No previous history of lung disease prior to this year. No contact with birds or dust/environmental exposures. No history of tobacco use. Additional workup was ordered including anti-Marizol antibody, SSA/SSB antibody, ORDNANCE TRUCK INSTALLATION MECHANIC antibody and SCL 70 antibody which were all negative. ESR and CRP were unremarkable. Patient was started on steroids and Bactrim. LDH remains elevated at 353 (was 342 on 08/07/2025). PJP for sputum was ordered, patient is having more phlegm production today and sputum Was placed at bedside. PJP is pending. Acid-fast sputum culture smear is negative, culture pending. Routine bacterial culture from sputum showing moderate normal nam. Needs GI prophylaxis while she is on steroids with pantoprazole. Echo was revealing for mitral valve disease. She underwent left and right heart catheterization 08/09/2025 which showed normal LV filling pressures, hyperdynamic LV with elevated cardiac output and cardiac index. No evidence of obstructive coronary disease. EF greater than 70%. 2+ mitral regurgitation. Moderate pulmonary hypertension (mean PA pressure 34 mmHg, PCWP 16 mmHg, PVR 2.21 Vale units). He has been initiated on metoprolol per cardiology. Based on the patient's CT imaging and nonspecific serologic workup and unrevealing history at this time we would recommend that she be evaluated for lung biopsy. Transfer was attempted yesterday. [facility] declined transfer as they would not perform a lung biopsy as he believes that the patient has an acute pneumonia which needs to be treated first. Will continue steroids and Bactrim. Monitor sodium closely with Bactrim, if it continues to drop then she may need some salt tabs. Will follow sputum sample and PJP results. Fungitell, Coccidioides, procalcitonin have been ordered. Patient will go for repeat CT chest without contrast today. I will follow this. Given the lack of evidence from her sputum samples I will go ahead and perform bronc with BAL. I do not plan to perform any biopsies. Patient is scheduled for tomorrow at 9 AM. Please keep n.p.o. after midnight. Thank you for this consult. I will follow along with you. Admission and Anticipated Discharge Date Admission Date: August 07, 2025 Subjective Patient examined during bedside rounds today. Her son is at bedside. The patient is asking about bronchoscopy. Sputum cultures thus far are negative. X-ray was done today, this shows some increasing infiltrates on the left. Review of Systems Review of Systems: Negative except as in HPI. Physical Exam Physical Exam: Physical examination: General: Well-appearing, well-nourished and not in acute distress. HEENT: Normocephalic, atraumatic. Extraocular movements intact. Sclera are nonicteric. No JVD appreciated. Skin: Warm and dry. No rashes appreciated. No jaundice appreciated. Cardiovascular: Murmur appreciated, slightly tachycardic. Lungs: On 4 L of oxygen, nonproductive cough present, nontachypneic. Velcro rales appreciated bilateral bases. No wheezing. Musculoskeletal: Normal muscle mass and tone. No gross joint deformity abnormalities. No effusions appreciated. Neurologic: Awake and alert, oriented. CN II through XII are grossly intact. Speech is fluent. Nonfocal exam. Psychiatric: Appropriate cooperative during my exam. Results & Data Results & Data Vital Signs (Past 12 Hours) Vital Signs Temp Pulse Pulse Resp BP BP Pulse Ox 08/12/25 11:00 36.4 C L 70 21 154/78 H 95 08/12/25 07:20 36.9 C 57 L 22 143/77 H 95 08/12/25 05:49 53 L 08/12/25 03:55 36.6 C 55 L 16 147/83 H 95 O2 Del Method O2 Flow Rate 08/12/25 11:00 Nasal Cannula 4 10/16/25 07:20 Nasal Cannula 4 08/12/25 05:49 08/12/25 03:55 Nasal Cannula 4 PG Care Time/CCT Total # of Minutes Spent Total Time Spent with Patient: Total time spent is greater than 50% in coordination of care (as documented) at patient's floor/unit and/or counseling patient: Coding Level of Care Code 87500 SUB INP/OBS CARE 2/35MIN Diagnoses ILD (interstitial lung disease) J84.9 Acute and chronic respiratory failure with hypoxia J96.21 Shortness of breath R06.02 Chronic cough R05.3
--- NOTE | 2025-08-12 13:42 | CT Scan Report ---
CT SCAN OF THE CHEST WITHOUT IV CONTRAST CLINICAL HISTORY: Pneumonia COMPARISON STUDY: Chest x-ray dated 08/11/2025. Chest CT dated 08/07/2025. TECHNIQUE: CT scan of the thorax was performed from the thoracic inlet to the upper abdomen. Images are reviewed in the axial, sagittal, and coronal planes. IV contrast was not administered for this ex amination as per the referring clinician. A dose lowering technique was utilized adhering to the [facility]. [facility] DOSE: 444.89 mGy.cm FINDINGS: Thyroid: Imaged portions of the thyroid gland are normal in size and attenuation. Thoracic aorta: Atherosclerotic calcification is seen in the thoracic aorta. There is ectasia of the ascending thoracic aorta which measures up to 3.8 cm diameter. The remainder of the thoracic aorta is normal in caliber, and the arch demonstrates standard 3-vessel anatomy. Heart: The heart is enlarged and without pericardial effusion. The coronary arteries and mitral annul us are densely calcified. The pulmonary trunk is dilated, measuring 3.7 cm diameter. This suggests pu lmonary artery hypertension. Lungs and pleural spaces: Findings of chronic interstitial lung disease are similar to previous, with diffuse subpleural reticulation, subpleural scarring with architectural distortion, ground glass opa cities, and traction bronchiectasis. No honeycombing is seen. There is relative sparing at the apices . No pleural effusion is identified. Mediastinum: There are mildly enlarged mesenteric lymph nodes. A high right paratracheal node measure s 13 mm short axis. Subcarinal node measures 20 mm short axis comment pretracheal nodes measure up to 8mm in short axis. Kyara: Not well assessed without IV contrast. Axillae: There is no axillary lymphadenopathy. Upper abdomen: There is a small hiatal hernia. Calcified granulomas are noted in the liver and spleen . Skeletal structures: The skeletal structures are osteopenic. No lytic or blastic bony lesions are see n. Degenerative change is noted in the shoulders and thoracic spine. IMPRESSION: 1. Again seen are findings of chronic interstitial lung disease as detailed above. This is similar in appearance to 08/07/2025. 2. Subpleural ground glass opacities are seen throughout both lungs with a lower lobe predominance. T his may be related to interstitial lung disease. A superimposed infectious/inflammatory pneumonitis i s not excluded. Clinical correlation will be required. 3. Cardiomegaly with evidence of pulmonary artery hypertension. 4. Mildly enlarged mediastinal lymph nodes are nonspecific, and could be reactive or related to chron ic lung disease. 5. Additional findings as above. ACT 112: Negative or not required by law. Electronically signed by: Kei Drummond M.D. 08/12/2025 1:39 PM
--- NOTE | 2025-08-12 15:56 | Hospitalist Progress Note ---
Date of Service August 12, 2025 Assessment & Plan (1) Shortness of breath: Plan Acute on chronic respiratory failure with hypoxia Interstitial lung disease Suspected multifocal pneumonia/pneumonitis DD: Hypersensitivity pneumonitis, interstitial pneumonitis, fibrosis with organizing pneumonia, sarcoidosis, PJP infection, NSIP Chronic cough --Chest CTA:No evidence for pulmonary embolism. Multifocal, patchy coarse as well as ground glass opacities with a lower lung predominance, consistent with interstitial lung disease, indeterminate for UIP, possibly representing chronic hypersensitivity pneumonitis, or cryptogenic organizing pneumonia. The areas of ground glass density suggest an acute inflammatory component in addition to the fibrotic change. An atypical infectious process superimposed would be difficult to entirely exclude, however the appearance suggests active ILD. - Recently had outpatient MARY, ANCA and was negative per [facility]. She was scheduled for outpatient PFTs but hasn't happened yet --Sputum culture showed moderate normal nam. Sputum for acid-fast bacilli negative. Culture pending - Workup for Coccidioides antibody, Fungitell, histoplasma/Blastomyces, PJP pending -Anti-Marizol antibody, SSA/SSB antibody, BOWLING TEACHER antibody and SCL 70 antibody, ANCA and MARY which were all negative. ESR and CRP were unremarkable. --dSNA ab neg, SUSY antibodies screen interpretation negative. Angiotensin converting enzyme negative. Aspergillus negative. Micropolyspora faeni, pigeon serum, T. candidus, T, vulgaris, S. Viridis all negative. . Rh Factor negative. CCP IgG negative. Proteinase 3 ab negative. Myeloperoxidase Ab negative -- Respiratory BioFire negative --Repeat CT chest on 08/12/25:Again seen are findings of chronic interstitial lung disease as detailed above. This is similar in appearance to 08/07/2025. S ubpleural ground glass opacities are seen throughout both lungs with a lower lobe predominance. This may be related to interstitial lung disease. A superimposed infectious/inflammatory pneumonitis is not excluded. Clinical correlation will be required. Cardiomegaly with evidence of pulmonary artery hypertension. Mildly enlarged mediastinal lymph nodes are nonspecific, and could be reactive or related to chronic lung disease. --Procalcitonin: Normal Continue Solu-Medrol 40 mg twice a day Continue Bactrim Appreciate pulmonology input Nebs as needed Prior hospitalist attempted to transfer patient [facility]--declined transfer as recommended to treat acute pneumonia. Before performing any lung biopsy. Follows with Belinda Rapp at [phone] with [place] [facility]ology Continue supplemental oxygen as needed Will need 2 step prior to discharge Plan for bronchial lavage tomorrow N.p.o. after midnight Explained patient's in detail about patient's condition on 08/12/2025. Patient's family questioned if her care is limited due to insurance issues. Patient and her were informed that her care is not limited in any way due to insurance issues. He understands that the next up will be bronchial lavage and to continue current antibiotics and steroids. If deteriorates/and or on further recommendations from pulmonology, will consider to transfer to tertiary care facility if needed. Patient also informs that her primary student accounts manager at [facility] also agrees that she should get bronchial lavage. Chest pain Severe mitral regurgitation LVH Moderate pulmonary hypertension -S/P cardiac catheterization showed no obstructive coronary disease --ECHO:Left ventricle systolic function is normal. EF 60 to 65%. Grade 1 diastolic dysfunction. Mild pulmonic valve regurgitation. Moderate to severe mitral regurgitation. There is systolic anterior motion of the mitral valve. Mild tricuspid regurgitation. Hold lisinopril as recommended by cardiology Continue metoprolol succinate 12.5 mg twice a day Appreciate cardiology input Thrombocytopenia No acute bleeding issues Monitor platelet count Hyponatremia Presented with sodium level 122 Likely due to diuretics Urine for Legionella negative HCTZ, Lasix on hold Hold lisinopril as well Sodium 128 today Monitor DVT Px: Heparin SQ CODE STATUS Full code Admission and Anticipated Discharge Date Admission Date: August 07, 2025 Subjective Patient is seen and examined at bedside Subjectively feels about the same as yesterday Continues to have dyspnea, cough with some expectoration Was able to sleep better per patient Discussed in detail with patient's over the phone Also discussed with pulmonology today Denies any chest pain, nausea, vomiting, abdominal pain Repeat CT chest today fairly unchanged Remains on 4 L supplemental oxygen to maintain saturation Review of Systems Review of Systems: All systems reviewed & are unremarkable except as noted in Subjective Physical Exam Physical Exam: Physical Exam: Vitals signs as noted above General Appearance:Moderately built and nourished, no apparent distress Head: normocephalic, Atraumatic Eyes: normal inspection, EOMI Neck: supple, Trachea midline Respiratory/Chest: Normal breath sounds, + basal crackles, No accessory muscle use Cardiovascular: S1, S2, +murmur Abdomen/GI:Soft, Non tender, Bowel sounds present Extremities/Musculoskeletal:normal inspection, no edema Neurologic/Psych:AAOX3, grossly no focal neurological deficits Skin: normal color, warm Results & Data Results & Data Vital Signs (Past 12 Hours) Vital Signs Temp Pulse Pulse Resp BP BP Pulse Ox 08/12/25 15:08 08/12/25 13:41 73 08/12/25 11:00 36.4 C L 70 21 154/78 H 95 08/12/25 07:20 36.9 C 57 L 22 143/77 H 95 08/12/25 05:49 53 L 08/12/25 03:55 36.6 C 55 L 16 147/83 H 95 O2 Del Method O2 Flow Rate 08/12/25 15:08 Nasal Cannula 08/12/25 13:41 08/12/25 11:00 Nasal Cannula 4 08/12/25 07:20 Nasal Cannula 4 08/12/25 05:49 08/12/25 03:55 Nasal Cannula 4 Laboratory Results [facility] 08/12/25 06:33 Sodium 128 L Potassium 5.1 Chloride 97 L Carbon Dioxide 23 BUN 21 Creatinine 0.92 Glucose 112 H Calcium 9.2
--- NOTE | 2025-08-13 06:39 | Pulmonology Progress Note ---
Date of Service August 13, 2025 Assessment & Plan (1) ILD (interstitial lung disease): (2) Acute and chronic respiratory failure with hypoxia: (3) Shortness of breath: (4) Chronic cough: Plan Patient is a 64-year-old female who was admitted to the hospital for cardiac evaluation. Pulmonary was consulted for CT findings concerning for ILD. Patient has what appears to be rapidly progressing interstitial lung disease of unclear etiology. CT chest shows GGO's and some fibrotic changes. Not consistent with UIP or IPF at this time. There is some mild adenopathy present. Broad differential, this would include hypersensitivity pneumonitis, acute interstitial pneumonitis, NSIP, acute fibrinous and organizing pneumonia, possible sarcoidosis, possible infectious ideology such as PJP. Patient does not have any history of autoimmune or connective tissue disorder. No premature aging in herself or her family members. No history of lung disease in her family. No previous history of lung disease prior to this year. No contact with birds or dust/environmental exposures. No history of tobacco use. Additional workup was ordered including anti-Marizol antibody, SSA/SSB antibody, SATELLITE COMMUNICATIONS OPERATOR antibody and SCL 70 antibody which were all negative. ESR and CRP were unremarkable. Procal remains low. Patient was started on steroids and Bactrim. LDH remains elevated at 407 (initial was 342 -> 353). PJP for sputum was ordered, patient is having more phlegm production today and sputum Was placed at bedside. PJP is pending. Acid-fast sputum culture smear is negative, culture pending. Routine bacterial culture from sputum showing moderate normal nam. Needs GI prophylaxis while she is on steroids with pantoprazole. Echo was revealing for mitral valve disease. She underwent left and right heart catheterization 08/09/2025 which showed normal LV filling pressures, hy perdynamic LV with elevated cardiac output and cardiac index. No evidence of obstructive coronary disease. EF greater than 70%. 2+ mitral regurgitation. Moderate pulmonary hypertension (mean PA pressure 34 mmHg, PCWP 16 mmHg, PVR 2.21 Vale units). He has been initiated on metoprolol per cardiology. Initial CT appears nonspecific, does not fit into any 1 pattern of ILD. Additionally her serologic workup has been unrevealing. Transfer was attempted to [facility] however this was declined by thoracic surgery as they would not perform a lung biopsy as he believes that the patient has an acute pneumonia which needs to be treated first. CT imaging was repeated on 08/12/2025. There is some slight clearing of some of the opacities however there is more evidence of mosaicism on her most recent CT scan. Diffuse hazy GGO's are present most significant in the lower lobes. Patchy nodular densities also appreciated. Bronchiectasis is progressing. Intralobular septal predominance/thickening most appreciated in bilateral lower lobe zones. Some evidence of honeycombing is also appreciated on the most recent CT scan predominantly in the posterior basal segments. Pulmonary artery is enlarged. Mildly enlarged mediastinal lymph nodes. ?PAP (will get PAS staining) Will continue steroids and Bactrim. Monitor sodium closely with Bactrim, if it continues to drop then she may need some salt tabs. Sputum sample with normal respiratory nam. Acid fast spear negative, culture pending. PJP results pending. Fungitell, Coccidioides, procalcitonin have been ordered. Histo/blasto is negative by serum PCR. Will do bronchoscopy today with lavage. Will check PAS stains, get differential, PCR, cultures, PJP. I would not attempt biopsies today given her increasing oxygen requirements. I will initiate Lasix and Aldactone low-dose after bronchoscopy. I think it would be a good idea to try to transfer the patient again, the patient is wanting to try [facility]. She needs to be seen by an ILD specialist. Thank you for this consult. I will follow along with you. Admission and Anticipated Discharge Date Admission Date: August 07, 2025 Subjective Patient seen and examined this a.m. prior to bronchoscopy. Overnight they had to increase oxygen to 5 L. Breathing otherwise is unchanged. Breath sounds are unchanged. She had a CT yesterday, this shows progression of her ILD. Review of Systems Review of Systems: Negative except as in HPI. Physical Exam Physical Exam: Physical examination: General: Well-appearing, well-nourished and not in acute distress. HEENT: Normocephalic, atraumatic. Extraocular movements intact. Sclera are nonicteric. No JVD appreciated. Skin: Warm and dry. No rashes appreciated. No jaundice appreciated. Cardiovascular: Murmur appreciated, slightly tachycardic. Lungs: On 5 L of oxygen, nonproductive cough present, nontachypneic. Velcro rales appreciated bilateral bases. No wheezing. Musculoskeletal: Normal muscle mass and tone. No gross joint deformity abnormalities. No effusions appreciated. Neurologic: Awake and alert, oriented. CN II through XII are grossly intact. Speech is fluent. Nonfocal exam. Psychiatric: Appropriate cooperative during my exam. Results & Data Results & Data Vital Signs (Past 12 Hours) Vital Signs Temp Pulse Pulse Resp BP Pulse Ox O2 Del Method 08/13/25 04:05 36.6 C 61 20 136/80 94 Nasal Cannula 08/12/25 23:06 36.7 C 68 20 165/87 H 92 Nasal Cannula 08/12/25 23:00 65 08/12/25 19:52 36.5 C 72 20 156/82 H 91 Nasal Cannula 08/12/25 19:00 Nasal Cannula O2 Flow Rate 08/13/25 04:05 4 08/12/25 23:06 4 08/12/25 23:00 08/12/25 19:52 4 08/12/25 19:00 4 PG Care Time/CCT Total # of Minutes Spent Total Time Spent with Patient: Total time spent is greater than 50% in coordination of care (as documented) at patient's floor/unit and/or counseling patient: Coding Level of Care Code 35579 SUB INP/OBS CARE 2/35MIN Diagnoses ILD (interstitial lung disease) J84.9 Acute and chronic respiratory failure with hypoxia J96.21 Shortness of breath R06.02 Chronic cough R05.3
[2025-08-13 08:24] LABS: Hematocrit (blood only) 37.7 % (37.0-47.0); Hemoglobin 13.3 g/dl (12.0-16.0); Mean Corpuscular Hemoglobin 31.6 pg (25.0-34.0); Mean Corpuscular Volume 89.5 fL (80.0-100.0); Platelet Count 191 K/uL (130-400); RDW Standard Deviation 39.4 fL (36.4-46.3); Red Blood Count 4.21 M/uL (4.20-5.40); White Blood Count 12.66 K/ul (4.8-10.8)
[2025-08-13] MEDS ORDERED: MIDAZOLAM HCL 1 MG/ML 2ML VIAL ONE (08:24)
[2025-08-13] MEDS ORDERED: ROCURONIUM BROMIDE 10 MG/ML 5 ML VIAL IV ONE (08:27)
[2025-08-13] MEDS ORDERED: ONDANSETRON INJ 2 MG/ML 2 ML VIAL ONE (08:27)
[2025-08-13] MEDS ORDERED: DEXAMETHASONE SOD INJ 4 MG/ML VIAL ONE ×2 (08:27)
[2025-08-13] MEDS ORDERED: PROPOFOL IV EMULSION 10 MG/ML 20 ML VIAL IV ONE (08:27)
[2025-08-13] MEDS ORDERED: LIDOCAINE 2% 2 ML VIAL/AMP(20MG/ML) INFIL ONE ×2 (08:27)
[2025-08-13] MEDS: LACTATED RINGER'S 1,000 ML IV SCH (08:31)
--- NOTE | 2025-08-13 08:40 | Anesthesiology Consultation ---
Date of Service August 13, 2025 Assessment & Plan Chart Review Chart Review: Acceptable Risk for Surgery Consults Requested none ASA ASA4 Proposed Anesthesia Anesthesia Type: General Risk / Benefits Reviewed With: PT / POA / Parent / Guardian, Accepts Plan and Informed Consent Obtained Additional Notes Discussed with patient that she is at an increased risk of remaining intubated after the procedure given acute worsening ILD. also diacussed increased risk if cardiac complication secondary to severe MR, [facility] History Surgery Operation Date: 08/09/25 09:30 Proposed Procedures p Cardiac Cath Procedure - Patrice Johnston MD, PhD Operation Date: 08/13/25 09:00 Proposed Procedures p Bronchoscopy with Bronchoalveolar Lavage (BAL) - Lupe Bermudez MD Height/Weight Height: 5 ft 6 in Weight: 69.4 kg Allergies Allergy/AdvReac Type Severity Reaction Status Date / Time No Known Allergies Allergy Verified 08/13/25 08:24 Medications Home Medications Medication Instructions Recorded Confirmed Last Taken albuterol sulfate 90 mcg/actuation 1 - 2 puff inhalation Q4 PRN COUGH 08/07/25 08/07/25 Unknown aerosol inhaler OR SOB furosemide 40 mg tablet 40 mg PO DAILY 08/07/25 08/07/25 08/05/25 lisinopril 20 1 tab PO DAILY 08/07/25 08/07/25 08/05/25 mg-hydrochlorothiazide 12.5 mg tablet prednisone 10 mg tablet 40 mg PO DAILY 08/07/25 08/07/25 08/07/25 Active Medications Generic Name Dose Route Start Last Admin Trade Name Freq PRN Reason Stop Dose Admin Guaifenesin/Codeine Phosphate 10 ml 08/07/25 21:38 08/12/25 21:05 Guaifenesin/Codeine 100mg/10mg 5ml Udc PO 09/06/25 21:37 10 ml HS KANDACE Administration Heparin Sodium (Porcine) 5,000 units 08/10/25 21:00 08/12/25 21:05 Heparin Sod 5,000 Unit/0.5 Ml Vial SQ 09/09/25 20:59 5,000 units Q12 KANDACE Administration Trimethoprim/Sulfamethoxazole 521.875 mls @ 347.917 mls/hr 08/09/25 00:00 08/13/25 01:45 350 mg/ Dextrose IV 08/14/25 00:00 Infused Q8H KANDACE Infusion Methylprednisolone 40 mg/ 0.64 mls @ 1.5 mls/min 08/08/25 21:00 08/12/25 21:05 Syringe IV 09/07/25 20:59 1.5 mls/min BID KANDACE Administration Lactated Ringer's 1,000 mls @ 15 mls/hr 08/13/25 08:30 08/13/25 08:31 Lr IV 08/16/25 08:29 15 mls/hr .Q24H KANDACE Administration Metoprolol Succinate 12.5 mg 08/09/25 21:00 08/12/25 21:06 Metoprolol Succ 25mg Ext Rel Tab PO 09/08/25 20:59 12.5 mg BID KANDACE Administration Pantoprazole Sodium 40 mg 08/08/25 21:00 08/12/25 21:05 Pantoprazole 40 Mg Tab PO 09/07/25 20:59 40 mg BID KANDACE Administration NPO Date Last Intake of Fluids: 08/12/25 Time Last Intake of Fluids: 23:59 Date Last Intake of Solids: 08/12/25 Time Last Intake of Solids: 16:30 Exercise / Class Metabolic Activity IV < 2 Limit ADL/Bedbound Past Anesthesia History No Hx of Anesthesia Complications and No Family Hx of Anesthesia Complications History of PONV No Hx of PONV and No Hx of Motion Sickness Social History Smoking Status: Never smoker Hx Alcohol Use: Yes Alcohol type: beer alcohol intake frequency: holidays/special occasions only Hx Substance Use: No substance use type: does not use Review of Systems Ear, Nose, Mouth, Throat: as per Subjective / HPI Respiratory: + cough, + dyspnea and + dyspnea on exertion Cardiovascular: no chest pain Gastrointestinal: as per Subjective / HPI Physical Exam Vital Signs Last Vital Signs Temp 37 C 08/13/25 08:24 Pulse 60 08/13/25 08:24 Resp 26 H 08/13/25 08:24 BP 168/86 H 08/13/25 08:24 Pulse Ox 95 08/13/25 08:24 O2 Del Method Nasal Cannula 08/13/25 08:24 O2 Flow Rate 5 08/13/25 08:24 Constitutional no acute distress ENMT Mouth: no TMJ abnormality Thyromental Distance: > or= 3.5 Finger Breadths Mallampati Class: II Neck normal visual inspection Respiratory + uses accessory muscles, + cough and + tachypneic Auscultation: + crackles Cardiovascular Rate/Rhythm: regular rate Chest (Breasts) Chest: no pacemaker Musculoskeletal Spine: normal cervical ROM Neurologic moves all extremities Psychiatric Orientation: alert and oriented x 3 Testing Laboratory Results 08/13/25 07:46 Urine Color Yellow 08/07/25 16:11 Urine Appearance Clear (Clear) 08/07/25 16:11 Urine pH 6.5 (4.5-7.5) 08/07/25 16:11 Ur Specific [place] 1.006 (1.000-1.030) 08/07/25 16:11 Urine Protein Negative (Negative) 08/07/25 16:11 Urine Glucose (UA) Negative (Negative) 08/07/25 16:11 Urine Ketones Negative (Negative) 08/07/25 16:11 Urine Nitrite Negative (Negative) 08/07/25 16:11 Ur Leukocyte Esterase Negative (Negative) 08/07/25 16:11 08/07/25 21:41 Gram Stain - Final Sputum, Expectorated Sputum Culture - Final Moderate normal nam. 08/07/25 21:41 Acid Fast Bacilli Smear - Final Sputum, Expectorated
[2025-08-13 08:41] LABS: Anion Gap 10.0 (3-11); Blood Urea Nitrogen 22.0 mg/dl (6-23); Calcium 9.3 mg/dl (8.6-10.3); Carbon Dioxide 23.0 mmol/L (21-32); Chloride 95.0 mmol/L (98-107); Creatinine Clr Calc Pharmacy 55.2 ml/min; Glucose 103.0 mg/dl (70-99(Fasting)); Magnesium 2.4 mg/dl (1.7-2.4); Potassium 4.5 mmol/L (3.5-5.1); Sodium 128.0 mmol/L (136-145)
[2025-08-13] MEDS ORDERED: ONDANSETRON INJ 2 MG/ML 2 ML VIAL IV PRN (08:46)
[2025-08-13] MEDS ORDERED: ATROPINE SULFATE 0.1 MG/ML 10ML SYR IV PRN (08:46)
[2025-08-13] MEDS ORDERED: SUCCINYLCHOLINE CHLORIDE 20 MG/ML 10 ML VIAL IV ONE (09:09)
[2025-08-13] MEDS ORDERED: PHENYLEPHRINE 100MCG/ML 5ML SYR ONE (09:29)
--- NOTE | 2025-08-13 09:49 | Procedure Note ---
Procedure Note: Bronchoscopy Procedure PREOPERATIVE DIAGNOSIS: ILD, hypoxic respiratory failure, POSTOPERATIVE DIAGNOSIS: ILD, hypoxic respite failure PROCEDURE PERFORMED: Flexible fiberoptic bronchoscopy with [bronchoalveolar lavage, transbronchial biopsies, brushings] COMPLICATIONS: None. INDICATION: Rule out infectious etiology ANESTHESIA: General Anesthesia with anesthesiology present. PROCEDURE: Informed consent was signed and witnessed and placed in patient's chart. After anesthesia was initiated and patient was intubated the bronchoscope advanced through the ET tube. The bronchoscope was advanced to the lower one third of the trachea. Trachea had normal caliber with normal appearing mucosa. No endotracheal lesions appr eciated. Ray was sharp. The bronchoscope was advanced into the right mainstem bronchus. The right upper lobe, right lower lobe and right middle lobe were examined with all subsegments visualized. There was normal lung anatomy. Airways were slightly widened. No endobronchial lesions. Mucosa slightly hyperemic. No extrinsic compression. The bronchoscope was retracted back to the ray and advanced into the left mainstem. The left mainstem was slightly elongated. The left upper lobe, lingula and left lower lobe were examined. Airways again were slightly widened. Numerous small crypts were appreciated. What appeared to be trabeculation was also appreciated. Photos were obtained. No endobronchial lesions were appreciated. No extrinsic compression. Mucosa slightly hyperemic. BAL was performed in the right lower lobe with 100 mL, BAL was performed in the left lower lobe with 60 mL, BAL was performed in the lingula with 40 mL. Bronchoscopy was retracted and procedure was terminated. Procedure was tolerated well. There were no complications. No blood loss was appreciated. Patient will be taken to PACU for monitoring after anesthesia. Recommendations: Follow-up micro, cytology and pathology. Will send for PJP, histo, blasto, will ask for special staining for PAS. Will get differential. Will send routine and acid-fast cultures. [facility] Procedure Codes (Charges) Pulmonary/Thoracic Procedure 1: Pulmonary and Thoracic: 45096 Dx bronchoscopy/BAL
[2025-08-13] MEDS: BENZONATATE 100 MG CAPSULE PO ONE (10:55)
[2025-08-13] MEDS: CHLORASEPTIC (PHENOL) 1.4% SOLN 180 ML BTL MT PRN (10:56)
--- NOTE | 2025-08-13 11:16 | Anesthesiology Progress Note ---
Date of Service August 13, 2025 Anesthesia Post Procedure Vital Signs Vital Signs: Temp Pulse Pulse Pulse Resp BP Pulse Ox 08/13/25 11:10 72 25 H 133/74 91 08/13/25 11:05 65 23 129/77 94 08/13/25 11:00 69 27 H 146/74 H 92 08/13/25 10:52 08/13/25 10:50 72 29 H 147/76 H 94 08/13/25 10:40 36.5 C 76 34 H 141/75 H 91 08/13/25 10:30 80 26 H 134/79 89 L 08/13/25 10:20 78 30 H 136/76 90 08/13/25 10:10 82 28 H 134/73 84 L 08/13/25 10:00 79 33 H 112/70 84 L 08/13/25 09:51 36.6 C 88 28 H 124/72 81 L 08/13/25 08:59 08/13/25 08:59 57 L 08/13/25 08:24 37 C 60 26 H 168/86 H 95 08/13/25 07:21 36.7 C 64 24 164/81 H 90 08/13/25 04:05 36.6 C 61 20 136/80 94 08/12/25 23:06 36.7 C 68 20 165/87 H 92 08/12/25 23:00 65 08/12/25 19:52 36.5 C 72 20 156/82 H 91 08/12/25 19:00 08/12/25 15:47 36.6 C 66 20 173/76 H 95 08/12/25 15:08 08/12/25 13:41 73 O2 Del Method O2 Flow Rate 08/13/25 11:10 Oxymask 6 08/13/25 11:05 Non-rebreather 10 08/13/25 11:00 Non-rebreather 15 08/13/25 10:52 Mechanical Vent 08/13/25 10:50 Non-rebreather 15 08/13/25 10:40 Non-rebreather 15 08/13/25 10:30 Non-rebreather 15 08/13/25 10:20 Non-rebreather 15 08/13/25 10:10 Non-rebreather 15 08/13/25 10:00 Oxymask 15 08/13/25 09:51 Oxymask 15 08/13/25 08:59 Nasal Cannula 5 08/13/25 08:59 08/13/25 08:24 Nasal Cannula 5 08/13/25 07:21 Nasal Cannula 5.0 08/13/25 04:05 Nasal Cannula 4 08/12/25 23:06 Nasal Cannula 4 08/12/25 23:00 08/12/25 19:52 Nasal Cannula 4 08/12/25 19:00 Nasal Cannula 4 08/12/25 15:47 Nasal Cannula 4 08/12/25 15:08 Nasal Cannula 08/12/25 13:41 Transfer of Care Handoff Completed per policy Notes Mental Status: alert / awake / arousable Patient Amnestic to Procedure: Yes Nausea / Vomiting: adequately controlled Pain: adequately controlled Airway Patency, RR, SpO2: see Notes below (weaned to 6L simple mask) BP & HR: stable & adequate Hydration State: stable & adequate Anesthetic Complications: no major complications apparent
[2025-08-13] MEDS: FUROSEMIDE INJ 20 MG/2 ML VIAL IV SCH (11:43)
[2025-08-13] MEDS: SPIRONOLACTONE 25 MG TAB PO SCH (11:43)
[2025-08-13 12:22] LABS: Pneumocystis jirovecii PCRQual NOT DETECTED; Pneumocystis jirovecii Source SPUTUM
[2025-08-13 13:13] LABS: Eosinophil Body Fluid Man 3 %; Fluid Mono/Macrophage 74 %; Lymphocyte Body Fluid Man 6 %; Neutrophil Body Fluid Man 17 %
--- NOTE | 2025-08-13 14:30 | Hospitalist Progress Note ---
Date of Service August 13, 2025 Assessment & Plan (1) Shortness of breath: Plan Acute on chronic respiratory failure with hypoxia Interstitial lung disease Suspected multifocal pneumonia/pneumonitis DD: Hypersensitivity pneumonitis, interstitial pneumonitis, fibrosis with organizing pneumonia, sarcoidosis, PJP infection, NSIP Chronic cough --Chest CTA:No evidence for pulmonary embolism. Multifocal, patchy coarse as well as ground glass opacities with a lower lung predominance, consistent with interstitial lung disease, indeterminate for UIP, possibly representing chronic hypersensitivity pneumonitis, or cryptogenic organizing pneumonia. The areas of ground glass density suggest an acute inflammatory component in addition to the fibrotic change. An atypical infectious process superimposed would be difficult to entirely exclude, however the appearance suggests active ILD. - Recently had outpatient MARY, ANCA and was negative per Estela everett. She was scheduled for outpatient PFTs but hasn't happened yet --Sputum culture showed moderate normal nam. Sputum for acid-fast bacilli negative. Culture pending - Workup for Coccidioides antibody, Fungitell, histoplasma/Blastomyces, PJP pending -Anti-Marizol antibody, SSA/SSB antibody, METAL FABRICATOR WELDER antibody and SCL 70 antibody, ANCA and MARY which were all negative. ESR and CRP were unremarkable. --dSNA ab neg, SUSY antibodies screen interpretation negative. Angiotensin converting enzyme negative. Aspergillus negative. Micropolyspora faeni, pigeon serum, T. candidus, T, vulgaris, S. Viridis all negative. . Rh Factor negative. CCP IgG negative. Proteinase 3 ab negative. Myeloperoxidase Ab negative -- Respiratory BioFire negative --Repeat CT chest on 08/12/25:Again seen are findings of chronic interstitial lung disease as detailed above. This is similar in appearance to 08/07/2025. S ubpleural ground glass opacities are seen throughout both lungs with a lower lobe predominance. This may be related to interstitial lung disease. A superimposed infectious/inflammatory pneumonitis is not excluded. Clinical correlation will be required. Cardiomegaly with evidence of pulmonary artery hypertension. Mildly enlarged mediastinal lymph nodes are nonspecific, and could be reactive or related to chronic lung disease. --Procalcitonin: Normal --S/P bronchoscopy on 08/13/25 -- Bronchial lavage cultures pending Continue Solu-Medrol 40 mg twice a day Continue Bactrim Appreciate pulmonology input Nebs as needed Follows with Belinda Rapp at [phone] with [place] [facility] Continue supplemental oxygen as needed Patient clinically showed no improvement despite IV steroids, Bactrim use. Given no clear etiology for worsening interstitial lung disease found, patient would benefit from going to tertiary care hospital for evaluation by interstitial lung disease specialist for further evaluation and management. Patient is accepted to [facility] for further care. Chest pain Severe mitral regurgitation LVH Moderate pulmonary hypertension -S/P cardiac catheterization showed no obstructive coronary disease --ECHO:Left ventricle systolic function is normal. EF 60 to 65%. Grade 1 diastolic dysfunction. Mild pulmonic valve regurgitation. Moderate to severe mitral regurgitation. There is systolic anterior motion of the mitral valve. Mild tricuspid regurgitation. Lasix, Aldactone resumed Hold lisinopril as recommended by cardiology Continue metoprolol succinate 12.5 mg twice a day Appreciate cardiology input Thrombocytopenia No acute bleeding issues Monitor platelet count Hyponatremia Presented with sodium level 122 Likely due to diuretics Urine for Legionella negative HCTZ, Lasix on hold Hold lisinopril as well Sodium 128 today Monitor DVT Px: Heparin SQ CODE STATUS Full code Disposition [facility] Admission and Anticipated Discharge Date Admission Date: August 07, 2025 Subjective Patient is seen and examined at bedside States that her cough, dyspnea has been unchanged Discussed with patient's family at bedside Also discussed with pulmonology today Patient had bronchoscopy earlier today Increased supplemental oxygen requirement No new complaints Patient is accepted to be transferred to [facility] Review of Systems Review of Systems: All systems reviewed & are unremarkable except as noted in Subjective Physical Exam Physical Exam: Physical Exam: Vitals signs as noted above General Appearance:Moderately built and nourished, no apparent distress Head: normocephalic, Atraumatic Eyes: normal inspection, EOMI Neck: supple, Trachea midline Respiratory/Chest: Normal breath sounds, + basal crackles, No accessory muscle use Cardiovascular: S1, S2, +murmur Abdomen/GI:Soft, Non tender, Bowel sounds present Extremities/Musculoskeletal:normal inspection, no edema Neurologic/Psych:AAOX3, grossly no focal neurological deficits Skin: normal color, warm Results & Data Results & Data Vital Signs (Past 12 Hours) Vital Signs Temp Pulse Pulse Pulse Resp BP Pulse Ox 08/13/25 12:46 36.8 C 73 20 131/74 94 08/13/25 11:35 36.7 C 70 18 150/76 H 92 08/13/25 11:20 65 22 127/71 94 08/13/25 11:10 72 25 H 133/74 91 08/13/25 11:05 65 23 129/77 94 08/13/25 11:00 69 27 H 146/74 H 92 08/13/25 10:52 08/13/25 10:50 72 29 H 147/76 H 94 08/13/25 10:40 36.5 C 76 34 H 141/75 H 91 08/13/25 10:30 80 26 H 134/79 89 L 08/13/25 10:20 78 30 H 136/76 90 08/13/25 10:10 82 28 H 134/73 84 L 08/13/25 10:00 79 33 H 112/70 84 L 08/13/25 09:51 36.6 C 88 28 H 124/72 81 L 08/13/25 08:59 08/13/25 08:59 57 L 08/13/25 08:24 37 C 60 26 H 168/86 H 95 08/13/25 07:21 36.7 C 64 24 164/81 H 90 08/13/25 04:05 36.6 C 61 20 136/80 94 O2 Del Method O2 Flow Rate 08/13/25 12:46 Oxymask 8.0 08/13/25 11:35 Oxymask 8 08/13/25 11:20 Oxymask 8 08/13/25 11:10 Oxymask 6 08/13/25 11:05 Non-rebreather 10 08/13/25 11:00 Non-rebreather 15 08/13/25 10:52 Mechanical Vent 08/13/25 10:50 Non-rebreather 15 08/13/25 10:40 Non-rebreather 15 08/13/25 10:30 Non-rebreather 15 08/13/25 10:20 Non-rebreather 15 08/13/25 10:10 Non-rebreather 15 08/13/25 10:00 Oxymask 15 08/13/25 09:51 Oxymask 15 08/13/25 08:59 Nasal Cannula 5 08/13/25 08:59 08/13/25 08:24 Nasal Cannula 5 08/13/25 07:21 Nasal Cannula 5.0 08/13/25 04:05 Nasal Cannula 4 Laboratory Results Short CBC 10/17/25 Range/Units 07:46 WBC 12.66 H (4.8-10.8) K/ul Hgb 13.3 (12.0-16.0) g/dl Hct 37.7 (37.0-47.0) % Plt Count 191 (130-400) K/uL BMP 08/13/25 07:46 Sodium 128 L Potassium 4.5 Chloride 95 L Carbon Dioxide 23 BUN 22 Creatinine 0.99 Glucose 103 H Calcium 9.3
--- NOTE | 2025-08-13 14:38 | Discharge Summary ---
Date of Service August 13, 2025 Admission HPI Per Admitting Provider This is a 64 yo F with PMhx of HTN, presents with shortness of breath, fatigue, chest heaviness and dry cough to the ER. She occasionally has a tightness and heaviness in her chest. She has a dry cough, no sputum production. Wears 2 -3 L at all times, during sleep wears 3L consistently since May. Has difficulty with doing ADLs such as showering. She occasionally has a tightness and heaviness in her chest. She has a dry cough, no sputum production. 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 This morning she was preparing food for a group of people celebrating a 89th birthday, once the guest arrived and ever ything was done, her drove her to the hospital. History is reviewed by the patient, her and Belinda KWONG with [facility] on the phone. Her symptoms started in May, where she was seen by PCP and given oral antibiotics levofloxacin 500 mg x 14 days, no symptom improvement. CT chest at that time showed ground glass opacities. She was admitted to [facility] from 07/10-07/16 where she was given Iv vancomycin, amongst other scans and a cardiac stress test which was read as normal. Echo showed severely dilated RV and EF of 55%, mild mitral regurgitation. RVSP 36. Her sodium during that stay was aroun 130 consistently. During that stay is where she was told her heart was looking more like heart failure and was placed on amlodipine 5 mg and lisinopril 40 mg. She is still taking these medications. Recently she was also placed on lasix 40 mg daily. Pt has been following with [facility] as outpatient on 07/20/25. The patient was seen by industrial relations director at [facility], Belinda KWONG, on follow up. She was started on prednisone 40 mg daily for about 2 weeks. Pulse ox was slightly improved on RA and was only requiring 2 L with exertional activity. Had labs done outpatient on 08/06/25 and found low sodium at 123, Pt was labs were done yesterday at [facility] showing pro-BNP of >2700, here on admission has Na 122 and BNP 273. Outpatient provider told her to drink Gatorade and hold the lasix, so last dose of lasix was evening (3days ago). Biofire RVP is negative. CTA shows multifocal patchy coarse ground glass opacities concerning for multifocal pneumonia vs interstitial lung disease vs hypersensitivity pneumonitis. There is no pulmonary emboli. She refuses antibiotic as she has been on 3 courses without improvement. Pt is agreeable for admission. Admission Exam Per Admitting Provider General: awake, alert, no apparent distress, white female Head: Normocephalic, atraumatic ENT: PERRL, EOMI, no pharyngeal exudate, mucous membranes moist Chest: Diminished breath sounds at bases, on room air, no adventitious breath sounds Cardiac: Regular rate and rhythm, no murmur, no JVD, normal peripheral pulses, good capillary refill Abdominal: NABS x 4 quadrants, soft, nondistended, nontender to palpation, no rebound or guarding Extremities: Normal inspection, no peripheral edema or erythema, calfs nontender to palpation Psych: Normal mood and affect Neuro: AAO x 3, strength intact bilaterally and rated 5/5, no motor deficits, speech is clear, no peripheral sensory deficits Principal Diagnosis Acute on chronic respiratory failure with hypoxia Interstitial lung disease Pneumonitis Moderate pulmonary hypertension Severe mitral regurgitation Thrombocytopenia Hyponatremia Discharge Data Allergies Allergy/AdvReac Type Severity Reaction Status Date / Time No Known Allergies Allergy Verified 08/13/25 08:24 Consultations 08/07/25 18:34 ED Decision to Admit Stat 08/07/25 18:45 Consult Pulmonology Routine 08/07/25 19:59 Consult Cardiology Routine 08/13/25 14:01 Burn CD for patient Stat Radiology Transfer Of Images Stat Procedures Performed Operation Date: 08/13/25 09:00 Actual Procedures p Bronchoscopy with Bronchoalveolar Lavage (BAL)(Not Applicable) - Lupe Bermudez MD Ordered Studies Laboratory Results WBC 12.66 K/ul (4.8-10.8) H 08/13/25 07:46 RBC 4.21 M/uL (4.20-5.40) 08/13/25 07:46 Hgb 13.3 g/dl (12.0-16.0) 08/13/25 07:46 POC Hgb 11.9 g/dl (12.0-16.0) L 08/09/25 11:12 Hct 37.7 % (37.0-47.0) 08/13/25 07:46 POC Hct 35 % (37-47) L 08/09/25 11:12 MCV 89.5 fL (80.0-100.0) 08/13/25 07:46 MCH 31.6 pg (25.0-34.0) 08/13/25 07:46 MCHC 35.3 g/dL (32.0-36.0) 08/13/25 07:46 RDW Std Deviation 39.4 fL (36.4-46.3) 08/13/25 07:46 RDW Coeff of June 12.1 % (11.5-14.5) 08/13/25 07:46 Plt Count 191 K/uL (130-400) 08/13/25 07:46 MPV 11.1 fL (9.4-12.4) 08/13/25 07:46 Immature Gran % (Auto) 0.4 % 08/11/25 06:06 Neut % (Auto) 87.4 % 08/11/25 06:06 Lymph % (Auto) 8.1 % 08/11/25 06:06 [place] % (Auto) 3.9 % 08/11/25 06:06 Eos % (Auto) 0.1 % 08/11/25 06:06 Baso % (Auto) 0.1 % 08/11/25 06:06 Neut # (Auto) 12.70 K/uL (1.40-6.50) H 08/11/25 06:06 Lymph # (Auto) 1.18 K/uL (1.20-3.40) L 08/11/25 06:06 [place] # (Auto) 0.57 K/uL (0.11-0.59) 08/11/25 06:06 Eos # (Auto) 0.01 K/uL (0.00-0.50) 08/11/25 06:06 Baso # (Auto) 0.01 K/uL (0.00-0.20) 08/11/25 06:06 Immature Gran # (Auto) 0.06 K/uL (0.01-0.20) 08/11/25 06:06 Platelet Estimate Decreased (Normal) L 08/11/25 06:06 Polychromasia 1+ 08/09/25 06:10 Peripher Smr Path Cons 08/07/25 22:31 ESR 13 mm/hr (0-30) 08/07/25 15:10 POC pH 7.37 (7.35-7.45) 08/09/25 11:12 POC pCO2 37 mmHg (35-46) 08/09/25 11:12 POC pO2 42 mmHg (80-95) L 08/09/25 11:12 POC HCO3 22 mmol/L (19-24) 08/09/25 11:12 POC Total CO2 23 mmol/L (24-31) L 08/09/25 11:12 POC Base Excess -4.0 mmol/L (-9-1.8) 08/09/25 11:12 POC ABG O2 Sat 77.0 % (90-95) L 08/09/25 11:12 POC Sodium 131 mmol/L (135-144) L 08/09/25 11:12 Sodium 128 mmol/L (136-145) L 08/13/25 07:46 POC Potassium 3.7 mmol/L (3.3-5.0) 08/09/25 11:12 Potassium 4.5 mmol/L (3.5-5.1) 08/13/25 07:46 Chloride 95 mmol/L (98-107) L 08/13/25 07:46 Carbon Dioxide 23 mmol/L (21-32) 08/13/25 07:46 Anion Gap 10 (3-11) 08/13/25 07:46 BUN 22 mg/dl (6-23) 08/13/25 07:46 Creatinine 0.99 mg/dl (0.6-1.2) 08/13/25 07:46 Est Cr Clr Drug Dosing 55.2 ml/min 08/13/25 07:46 eGFR 64.47 08/13/25 07:46 BUN/Creatinine Ratio 22.2 (10-20) H 08/13/25 07:46 Glucose 103 mg/dl (70-99(Fasting)) H 08/13/25 07:46 Osmolality 265 mOsm/kg (280-300) L 08/07/25 15:10 Calcium 9.3 mg/dl (8.6-10.3) 08/13/25 07:46 Phosphorus 3.0 mg/dl (2.5-4.9) 08/10/25 06:30 Magnesium 2.4 mg/dl (1.7-2.4) 08/13/25 07:46 Total Bilirubin 0.5 mg/dl (0.2-1.0) 08/10/25 06:30 AST 18 U/L (13-39) 08/10/25 06:30 ALT 12 U/L (7-52) 08/10/25 06:30 Alkaline Phosphatase 35 U/L (34-104) 08/10/25 06:30 Lactate Dehydrogenase 407 U/L (86-244) H 08/12/25 11:45 Total Creatine Kinase 45 U/L (26-192) 08/08/25 15:48 Troponin I High Sens 31.8 pg/ml (0-14) H 08/08/25 09:20 C-Reactive Protein < 0.50 mg/dl (0-0.5) 08/07/25 15:10 B-Natriuretic Peptide 253 pg/ml (0-100) H 08/07/25 15:10 Total Protein 6.0 gm/dl (6.0-8.3) 08/10/25 06:30 Albumin 3.7 gm/dl (3.4-5.0) 08/10/25 06:30 Globulin 2.3 gm/dl (2.5-4.0) L 08/10/25 06:30 Albumin/Globulin Ratio 1.6 (0.9-2) 08/10/25 06:30 Procalcitonin < 0.02 ng/ml (0-0.5) 08/12/25 11:45 Urine Color Yellow 08/07/25 16:11 Urine Appearance Clear (Clear) 08/07/25 16:11 Urine pH 6.5 (4.5-7.5) 08/07/25 16:11 Ur Specific [place] 1.006 (1.000-1.030) 08/07/25 16:11 Urine Protein Negative (Negative) 08/07/25 16:11 Urine Glucose (UA) Negative (Negative) 08/07/25 16:11 Urine Ketones Negative (Negative) 08/07/25 16:11 Urine Blood Negative (Negative) 08/07/25 16:11 Urine Nitrite Negative (Negative) 08/07/25 16:11 Urine Bilirubin Negative (Negative) 08/07/25 16:11 Urine Urobilinogen Negative (Negative) 08/07/25 16:11 Ur Leukocyte Esterase Negative (Negative) 08/07/25 16:11 Urine Osmolality 176 mOsm/kg (500-800) L 08/07/25 16:11 Ur Random Creatinine 17.2 mg/dl 08/07/25 16:11 Ur Random Sodium 20 mmol/L 08/07/25 16:11 Urine Comment 08/07/25 16:11 Fluid Neutrophils % 17 % 08/13/25 09:45 Fluid Lymphocytes % 6 % 08/13/25 09:45 Fluid Eosinophils % 3 % 08/13/25 09:45 Fl Monocyt/Macrophag % 74 % 08/13/25 09:45 Fluid Comment 08/13/25 09:45 Nasal Screen MRSA (PCR) Negative (Negative) 08/08/25 17:50 YAYO-1 Antibody <1.0 NEG AI (<1.0 NEG) 08/08/25 15:48 SS-A/Ro Antibody <1.0 NEG AI (<1.0 NEG) 08/08/25 15:48 SS-B/La Antibody <1.0 NEG AI (<1.0 NEG) 08/08/25 15:48 TOLL PATROLMAN Antibody <1.0 NEG AI (<1.0 NEG) 08/08/25 15:48 Scl-70 Scleroderma Ab <1.0 NEG AI (<1.0 NEG) 08/08/25 15:48 Adenovirus (PCR) Not Detected (NotDetected) 08/07/25 16:17 B. pertussis DNA (PCR) Not Detected (NotDetected) 08/07/25 16:17 B.parapertussis DNA PCR Not Detected (NotDetected) 08/07/25 16:17 C. pneumoniae DNA (PCR) Not Detected (NotDetected) 08/07/25 16:17 Coronavirus OC43 (PCR) Not Detected (NotDetected) 08/07/25 16:17 Coronavirus HKU1 (PCR) Not Detected (NotDetected) 08/07/25 16:17 Coronavirus 229E (PCR) Not Detected (NotDetected) 08/07/25 16:17 SARS-CoV-2 (PCR) Not Detected (NotDetected) 08/07/25 16:17 Coronavirus NL63 (PCR) Not Detected (NotDetected) 08/07/25 16:17 Histo/Blasto PCR Result See Scanned Report 08/08/25 22:00 HIV 1&2 Ab/P24 Ag 4thGn Negative (Negative) 08/07/25 22:31 Human Metapneumovir PCR Not Detected (NotDetected) 08/07/25 16:17 Influenza Type A (PCR) Not Detected (NotDetected) 08/07/25 16:17 Influenza Type B (PCR) Not Detected (NotDetected) 08/07/25 16:17 Urine Legionella Ag SEE NOTE 08/07/25 16:11 M. pneumoniae (PCR) Not Detected (NotDetected) 08/07/25 16:17 Parainfluenza 1 (PCR) Not Detected (NotDetected) 08/07/25 16:17 Parainfluenza 2 (PCR) Not Detected (NotDetected) 08/07/25 16:17 Parainfluenza 3 (PCR) Not Detected (NotDetected) 08/07/25 16:17 Parainfluenza 4 (PCR) Not Detected (NotDetected) 08/07/25 16:17 Pneumocystis Source SPUTUM 08/08/25 22:00 Pneumocyst jirovecii PCR Cancelled 08/13/25 09:45 RSV (PCR) Not Detected (NotDetected) 08/07/25 16:17 Entero/Rhino (PCR) Not Detected (NotDetected) 08/07/25 16:17 Impressions Chest CTA 08/07/25 15:26 CT pulmonary angiogram with IV contrast History: shortness of breath COMPARISON: None TECHNIQUE: CT angiography of the chest was performed without IV contrast followed by IV contrast, including 3D post processing CTA image reconstruction. Dose reduction techniques were achieved by using automatic exposure control and/or adjustment of mA and/or kV according to patient size and/or use of iterative reconstruction technique. FINDINGS: Diagnostic quality: Adequate There is no evidence for pulmonary embolism. The heart is enlarged. Moderate coronary calcifications. There is no pericardial effusion. Mild reactive appearing lymph nodes In the chest. The central tracheobronchial tree is clear. There are diffuse, mixed coarse opacities with patchy ground glass, overall with a lower lobe predominance, most pronounced in the left lower lobe. There is significant involvement of the central peribronchovascular regions, as well as the periphery. No significant bronchiectasis. No definite honeycombing. There is no pleural effusion. Limited visualized upper abdomen. No destructive osseous changes are seen. IMPRESSION: No evidence for pulmonary embolism. Multifocal, patchy coarse as well as ground glass opacities with a lower lung predominance, consistent with interstitial lung disease, indeterminate for UIP, possibly representing chronic hypersensitivity pneumonitis, or cryptogenic organizing pneumonia. The areas of ground glass density suggest an acute inflammatory component in addition to the fibrotic change. An atypical infectious process superimposed would be difficult to entirely exclude, however the appearance suggests active ILD. Electronically signed by Jakob Rankin 08-07-2025 5:40 PM Chest X-Ray 08/11/25 08:50 XR chest 1V portable CLINICAL HISTORY: Hypoxia COMPARISON STUDY: 08/07/2025 FINDINGS: Stable cardiomegaly with mild pulmonary vascular congestion. There is increased patchy opacity at the mid and lower lungs. No pleural effusion or pneumothorax seen. IMPRESSION: Increased bilateral pneumonia. ACT 112: Negative or not required by law. Electronically signed by: Sandeep Dorsey M.D. 08/11/2025 9:[address] 08/12/25 10:58 CT SCAN OF THE CHEST WITHOUT IV CONTRAST CLINICAL HISTORY: Pneumonia COMPARISON STUDY: Chest x-ray dated 08/11/2025. Chest CT dated 08/07/2025. TECHNIQUE: CT scan of the thorax was performed from the thoracic inlet to the upper abdomen. Images are reviewed in the axial, sagittal, and coronal planes. IV contrast was not administered for this examination as per the referring clinician. A dose lowering technique was utilized adhering to the principles of ALARA. CT DOSE: 444.89 mGy.cm FINDINGS: Thyroid: Imaged portions of the thyroid gland are normal in size and attenuation. Thoracic aorta: Atherosclerotic calcification is seen in the thoracic aorta. There is ectasia of the ascending thoracic aorta which measures up to 3.8 cm diameter. The remainder of the thoracic aorta is normal in caliber, and the arch demonstrates standard 3-vessel anatomy. Heart: The heart is enlarged and without pericardial effusion. The coronary arteries and mitral annulus are densely calcified. The pulmonary trunk is dilated, measuring 3.7 cm diameter. This suggests pulmonary artery hypertension. Lungs and pleural spaces: Findings of chronic interstitial lung disease are similar to previous, with diffuse subpleural reticulation, subpleural scarring with architectural distortion, ground glass opacities, and traction bronchiectasis. No honeycombing is seen. There is relative sparing at the apices. No pleural effusion is identified. Mediastinum: There are mildly enlarged mesenteric lymph nodes. A high right paratracheal node measures 13 mm short axis. Subcarinal node measures 20 mm short axis comment pretracheal nodes measure up to 8mm in short axis. Kyara: Not well assessed without IV contrast. Axillae: There is no axillary lymphadenopathy. Upper abdomen: There is a small hiatal hernia. Calcified granulomas are noted in the liver and spleen. Skeletal structures: The skeletal structures are osteopenic. No lytic or blastic bony lesions are seen. Degenerative change is noted in the shoulders and thoracic spine. IMPRESSION: 1. Again seen are findings of chronic interstitial lung disease as detailed above. This is similar in appearance to 08/07/2025. 2. Subpleural ground glass opacities are seen throughout both lungs with a lower lobe predominance. This may be related to interstitial lung disease. A superimposed infectious/inflammatory pneumonitis is not excluded. Clinical correlation will be required. 3. Cardiomegaly with evidence of pulmonary artery hypertension. 4. Mildly enlarged mediastinal lymph nodes are nonspecific, and could be reactive or related to chronic lung disease. 5. Additional findings as above. ACT 112: Negative or not required by law. Electronically signed by: Kei Drummond M.D. 08/12/2025 1:39 PM Hospital Course (1) Shortness of breath: Plan Acute on chronic respiratory failure with hypoxia Interstitial lung disease Suspected multifocal pneumonia/pneumonitis DD: Hypersensitivity pneumonitis, interstitial pneumonitis, fibrosis with organizing pneumonia, sarcoidosis, PJP infection, NSIP Chronic cough --Chest CTA:No evidence for pulmonary embolism. Multifocal, patchy coarse as well as ground glass opacities with a lower lung predominance, consistent with interstitial lung disease, indeterminate for UIP, possibly representing chronic hypersensitivity pneumonitis, or cryptogenic organizing pneumonia. The areas of ground glass density suggest an acute inflammatory component in addition to the fibrotic change. An atypical infectious process superimposed would be difficult to entirely exclude, however the appearance suggests active ILD. - Recently had outpatient MARY, ANCA and was negative per [facility] [place]. She was scheduled for outpatient PFTs but hasn't happened yet --Sputum culture showed moderate normal nam. Sputum for acid-fast bacilli negative. Culture pending - Workup for Coccidioides antibody, Fungitell, histoplasma/Blastomyces, PJP pending -Anti-Yayo antibody, SSA/SSB antibody, TOLL PATROLMAN antibody and SCL 70 antibody, ANCA and MARY which were all negative. ESR and CRP were unremarkable. --dSNA ab neg, SUSY antibodies screen interpretation negative. Angiotensin converting enzyme negative. Aspergillus negative. Micropolyspora faeni, pigeon serum, T. candidus, T, vulgaris, S. Viridis all negative. . Rh Factor negative. CCP IgG negative. Proteinase 3 ab negative. Myeloperoxidase Ab negative -- Respiratory BioFire negative --Repeat CT chest on 08/12/25:Again seen are findings of chronic interstitial lung disease as detailed above. This is similar in appearance to 08/07/2025. Subpleural ground glass opacities are seen throughout both lungs with a lower lobe predominance. This may be related to interstitial lung disease. A superimposed infectious/inflammatory pneumonitis is not excluded. Clinical correlation will be required. Cardiomegaly with evidence of pulmonary artery hypertension. Mildly enlarged mediastinal lymph nodes are nonspecific, and could be reactive or related to chronic lung disease. --Procalcitonin: Normal --S/P bronchoscopy on 08/13/25 -- Bronchial lavage cultures pending Continue Solu-Medrol 40 mg twice a day Continue Bactrim Appreciate pulmonology input Nebs as needed Follows with Belinda Rapp at [phone] with [facility] Continue supplemental oxygen as needed Patient clinically showed no improvement despite IV steroids, Bactrim use. Given no clear etiology for worsening interstitial lung disease found, patient would benefit from going to tertiary care hospital for evaluation by interstitial lung disease specialist for further evaluation and management. Patient is accepted to [facility] for further care. Chest pain Severe mitral regurgitation LVH Moderate pulmonary hypertension -S/P cardiac catheterization showed no obstructive coronary disease --ECHO:Left ventricle systolic function is normal. EF 60 to 65%. Grade 1 diastolic dysfunction. Mild pulmonic valve regurgitation. Moderate to severe mitral regurgitation. There is systolic anterior motion of the mitral valve. Mild tricuspid regurgitation. Lasix, Aldactone resumed Hold lisinopril as recommended by cardiology Continue metoprolol succinate 12.5 mg twice a day Appreciate cardiology input Thrombocytopenia No acute bleeding issues Monitor platelet count Hyponatremia Presented with sodium level 122 Likely due to diuretics Urine for Legionella negative HCTZ, Lasix on hold Hold lisinopril as well Sodium 128 today Monitor DVT Px: Heparin SQ CODE STATUS Full code Disposition [facility]. Pres Total Time Total Time Spent Total Time Spent (In Minutes): 65 minutes Discharge Plan Discharge Items Patient Disposition: Transfer Acute Care Hospital Reason For Visit: MULTIFOCAL PNA VS ILD Discharge Diagnosis: Acute on chronic respiratory failure with hypoxia Interstitial lung disease Pneumonitis Moderate pulmonary hypertension Severe mitral regurgitation Thrombocytopenia Hyponatremia Condition on Discharge: Fair Activity: Per Instructions section Exercise/Sports: Wait until after follow-up appointment Non-emergency contact: Primary Care Provider and Linseed Oil Temperer Call non-emergency contact if: you have any medication questions, your symptoms worsen, your pain is concerning for you and you have a fever Follow-up/Referrals: Florin Hayes PA-C [Primary Care Provider] - Diet: Regular Addtl Attending Provider Instructions: Follow-up with at [facility] for [facility] management 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 Provider Instructions: Date of Service: August 13, 2025 Current Inpatient Medications Acetaminophen (Acetaminophen 325 Mg Tab) 650 mg PO Q4H PRN PRN Reason: Moderate Pain (Scale 4, 5, 6) Stop: 09/06/25 21:37 Albuterol (Albut/Ipratrop 3mg/0.5mg Neb 3 Ml Vial) 3 ml NEB Q6R PRN; Protocol PRN Reason: Shortness Of Breath Or Wheezing Stop: 09/06/25 20:30 Furosemide (Furosemide Inj 20 Mg/2 Ml Vial) 20 mg IV DAILY KANDACE Stop: 09/12/25 10:44 Last Admin: 08/13/25 11:43 Dose: 20 mg Guaifenesin/Codeine Phosphate (Guaifenesin/Codeine 100mg/10mg 5ml Udc) 10 ml PO HS KANDACE Stop: 09/06/25 21:37 Last Admin: 08/12/25 21:05 Dose: 10 ml Heparin Sodium (Porcine) (Heparin Sod 5,000 Unit/0.5 Ml Vial) 5,000 units SQ Q12 KANDACE Stop: 09/09/25 20:59 Last Admin: 08/13/25 14:09 Dose: 5,000 units Trimethoprim/Sulfamethoxazole (350 mg/ Dextrose) 521.875 mls @ 347.917 mls/hr IV Q8H KANDACE Stop: 08/14/25 00:00 Last Infusion: 08/13/25 13:35 Dose: Infused Methylprednisolone 40 mg/ (Syringe) 0.64 mls @ 1.5 mls/min IV BID [facility] Stop: 09/07/25 20:59 Last Admin: 08/13/25 11:42 Dose: 1.5 mls/min Metoprolol Succinate (Metoprolol Succ 25mg Ext Rel Tab) 12.5 mg PO BID [facility] Stop: 09/08/25 20:59 Last Admin: 08/13/25 11:43 Dose: 12.5 mg Ondansetron HCl (Ondansetron Inj 2 Mg/Ml 2 Ml Vial) 4 mg IV Q4H PRN PRN Reason: Nausea And Vomiting Stop: 09/06/25 21:37 Pantoprazole Sodium (Pantoprazole 40 Mg Tab) 40 mg PO BID [facility] Stop: 09/07/25 20:59 Last Admin: 08/13/25 11:43 Dose: 40 mg Phenol (Chloraseptic (Phenol) 1.4% Soln 180 Ml Btl) 1 sprays MT UD PRN PRN Reason: Cough Stop: 09/12/25 10:39 Last Admin: 08/13/25 10:56 Dose: 1 sprays Spironolactone (Spironolactone 25 Mg Tab) 25 mg PO QAM [facility] Stop: 09/12/25 10:44 Last Admin: 08/13/25 11:43 Dose: 25 mg Pending Studies at Discharge: Yes Studies:: Bronchial lavage studies Stand-Alone Forms: [facility] Skilled Items Patient informed of condition?: Yes DNR: No Discharge Level of Care: Other Communicable Disease: No Discharge Prognosis: Deteriorating Lines: Peripheral IV Urinary Catheter: No Medications and DC Order Prescriptions: New pantoprazole 40 mg Tablet,Delayed Release (Dr/Ec) 40 mg PO BID Qty: 0 0RF spironolactone 25 mg Tablet 25 mg PO QAM Qty: 0 0RF metoprolol succinate 25 mg Tablet Extended Release 24 Hr 12.5 mg PO BID Qty: 0 0RF Continued furosemide 40 mg tablet 40 mg PO DAILY albuterol sulfate 90 mcg/actuation HFA aerosol inhaler 1 - 2 puff INHALATION Q4 PRN (Reason: COUGH OR SOB) Held prednisone 10 mg tablet 40 mg PO DAILY Hold Instructions: Hold until further recommendations Rx Instructions: Started 08/02/25 lisinopril-hydrochlorothiazide 20-12.5 mg tablet 1 tab PO DAILY Hold Instructions: Hold until further recommendations from your project management professor Discharge Orders: Discharge Order (Routine); Ordered 08/13/25 Ordered By: Matheus Olvera Admission Data Admit Date/Time: 08/07/25 18:43 Attending Provider: Matheus Olvera Admit Provider: Casey Adler Primary Care Provider: Florin Hayes Other Providers: Casey Adler; Juan Benson; Lance Webber
[2025-08-13 18:43] LABS: Coccidioides Ab, ID Negative (Negative); Fungitell (1-3)-B-D-Glucan <31 pg/mL (<60); Fungitell Interpretation Negative
[2025-08-13] MEDS: EPINEPHrine INJ 1 MG/ML AMP INSTIL ONE (20:48)
[2025-08-13] MEDS: LIDOCAINE VISCOUS 2% 100ML BOTTLE NAE ONE (20:48)
[2025-08-13] MEDS: TRANEXAMIC ACID 100 MG/ML 10 ML VIAL INSTIL ONE (20:48)
--- NOTE | 2025-08-14 07:41 | Pulmonology Progress Note ---
Date of Service August 14, 2025 Assessment & Plan (1) ILD (interstitial lung disease): (2) Acute and chronic respiratory failure with hypoxia: (3) Shortness of breath: (4) Chronic cough: Plan Patient is a 64-year-old female who was admitted to the hospital for cardiac evaluation. Pulmonary was consulted for CT findings concerning for ILD. Patient has what appears to be rapidly progressing interstitial lung disease of unclear etiology. CT chest shows GGO's and some fibrotic changes. Not consistent with UIP or IPF at this time. There is some mild adenopathy present. Broad differential, this would include hypersensitivity pneumonitis, acute interstitial pneumonitis, NSIP, acute fibrinous and organizing pneumonia, possible sarcoidosis, possible infectious ideology such as PJP. Patient does not have any history of autoimmune or connective tissue disorder. No premature aging in herself or her family members. No history of lung disease in her family. No previous history of lung disease prior to this year. No contact with birds or dust/environmental exposures. No history of tobacco use. Additional workup was ordered including anti-Marizol antibody, SSA/SSB antibody, DELINQUENT NOTICE MACHINE OPERATOR antibody and SCL 70 antibody which were all negative. ESR and CRP were unremarkable. Procal remains low. Patient was started on steroids and Bactrim. LDH remains elevated at 407 (initial was 342 -> 353). PJP for sputum was ordered, patient is having more phlegm production today and sputum Was placed at bedside. PJP is pending. Acid-fast sputum culture smear is negative, culture pending. Routine bacterial culture from sputum showing moderate normal nam. Needs GI prophylaxis while she is on steroids with pantoprazole. Echo was revealing for mitral valve disease. She underwent left and right heart catheterization 08/09/2025 which showed normal LV filling pressures, hy perdynamic LV with elevated cardiac output and cardiac index. No evidence of obstructive coronary disease. EF greater than 70%. 2+ mitral regurgitation. Moderate pulmonary hypertension (mean PA pressure 34 mmHg, PCWP 16 mmHg, PVR 2.21 Vale units). He has been initiated on metoprolol per cardiology. Initial CT appears nonspecific, does not fit into any 1 pattern of ILD. Additionally her serologic workup has been unrevealing. CT imaging was repeated on 08/12/2025. There is some slight clearing of some of the opacities however there is more evidence of mosaicism on her most recent CT scan. Diffuse hazy GGO's are present most significant in the lower lobes. Patchy nodular densities also appreciated. Bronchiectasis is progressing. Intralobular septal predominance/thickening most appreciated in bilateral lower lobe zones. Some evidence of honeycombing is also appreciated on the most recent CT scan predominantly in the posterior basal segments. Pulmonary artery is enlarged. Mildly enlarged mediastinal lymph nodes. Underwent bronchoscopy for BAL 08/13/2025. Airways were widened. Mildly hyperemic but otherwise normal mucosa and anatomy was appreciated. Multiple lavage samples were obtained, BAL fluid was pink however there was no evidence of alveolar hemorrhage appreciated. No evidence of milky white lavage fluid either. Differential showing predominantly macrophages. Additional studies are pending. Will continue steroids and Bactrim. Sodium is lower, I have added salt tabs. Patient has not been pulsed with steroids, has just been on Solu-Medrol 40 mg tw ice daily which is close to 1 mg/kg. Has not had pulsed dose steroids. Given her increasing oxygen requirement I will go ahead and initiate 1 g daily for 3 days then she can go back to 1 mg/kg. Obtain a chest x-ray. Sputum sample with normal respiratory nam. Acid fast spear negative, culture pending. PJP results pending. Fungitell, Coccidioides have been ordered. Histo/blasto is negative by serum PCR. Bronchoscopy results are pending, differential showing predominantly macrophages. Cultures are all pending from lavage, micro is pending. Cytology is pending. I also added PAS stains. I ordered anti-GM-CSF as well. Lasix has been added. Patient was accepted at [facility] yesterday. Now the transfer is being refused due to insurance. Will have to determine which hospitals her insurance will allow transfer to. I still think that she would benefit from going to a facility where ILD specialist could evaluate her case. Can try Optiflow with humidified air and higher flow today for patient comfort if desired. Thank you for this consult. I will follow along with you. Admission and Anticipated Discharge Date Admission Date: August 07, 2025 Subjective Underwent bronchoscopy yesterday. Oxygen requirement has increased unfortunately. Was started on Lasix and Aldactone yesterday. Requiring 10 L now via green cannula. Still having some phlegm production. No fevers. More tachypneic today. Says that she is having some nasal drying, I told her that she could try the Airvo/Optiflow device and this might provide her with some humidity and relieve some of the dyspnea. Family is at bedside, her is there today. Questions were addressed. Review of Systems Review of Systems: Negative except as in HPI. Physical Exam Physical Exam: Physical examination: General: Well-appearing, well-nourished and not in acute distress. HEENT: Normocephalic, atraumatic. Extraocular movements intact. Sclera are nonicteric. No JVD appreciated. Skin: Warm and dry. No rashes appreciated. No jaundice appreciated. Cardiovascular: Murmur appreciated, slightly tachycardic. Lungs: On 10 L of oxygen, cough present, tachypneic. Velcro rales appreciated bilateral bases. No wheezing. Musculoskeletal: Normal muscle mass and tone. No gross joint deformity abnormalities. No effusions appreciated. Neurologic: Awake and alert, oriented. CN II through XII are grossly intact. Speech is fluent. Nonfocal exam. Psychiatric: Appropriate cooperative during my exam. Results & Data Results & Data Vital Signs (Past 12 Hours) Vital Signs Temp Pulse Pulse Pulse Resp BP Pulse Ox 08/14/25 07:22 36.7 C 70 25 H 137/80 94 08/14/25 03:18 36.5 C 64 20 135/77 91 08/14/25 00:00 73 08/13/25 23:19 36.8 C 75 20 135/82 96 08/13/25 19:38 36.8 C 93 H 22 155/82 H 95 O2 Del Method O2 Flow Rate 08/14/25 07:22 Oxymask 10 08/14/25 03:18 Oxymask 11 08/14/25 00:00 08/13/25 23:19 Oxymask 11 08/13/25 19:38 Oxymask 8 PG Care Time/CCT Total # of Minutes Spent Total Time Spent with Patient: Total time spent is greater than 50% in coordination of care (as documented) at patient's floor/unit and/or counseling patient: Coding Level of Care Code 04537 SUB INP/OBS CARE 2/35MIN Diagnoses ILD (interstitial lung disease) J84.9 Acute and chronic respiratory failure with hypoxia J96.21 Shortness of breath R06.02 Chronic cough R05.3
[2025-08-14 08:30] LABS: Hematocrit (blood only) 37.7 % (37.0-47.0); Hemoglobin 13.7 g/dl (12.0-16.0); Mean Corpuscular Hemoglobin 32.3 pg (25.0-34.0); Mean Corpuscular Volume 88.9 fL (80.0-100.0); Platelet Count 230 K/uL (130-400); RDW Standard Deviation 37.8 fL (36.4-46.3); Red Blood Count 4.24 M/uL (4.20-5.40); White Blood Count 17.63 K/ul (4.8-10.8)
[2025-08-14 08:46] LABS: Anion Gap 10.0 (3-11); Blood Urea Nitrogen 26.0 mg/dl (6-23); Calcium 9.2 mg/dl (8.6-10.3); Carbon Dioxide 22.0 mmol/L (21-32); Chloride 93.0 mmol/L (98-107); Creatinine Clr Calc Pharmacy 49.6 ml/min; Glucose 138.0 mg/dl (70-99(Fasting)); Magnesium 2.3 mg/dl (1.7-2.4); Potassium 4.9 mmol/L (3.5-5.1); Sodium 125.0 mmol/L (136-145)
[2025-08-14] MEDS: methylPREDNISolone 1,000 MG in NSS 250 ML IV SCH (09:58)
[2025-08-14] MEDS: SODIUM CHLORIDE 1 GM TABLET PO SCH (11:01)
[2025-08-14] MEDS: DEXTROSE 5% IV SCH (11:02)
[2025-08-14] MEDS: SULFA IV SCH (11:02)
[2025-08-14] MEDS: TRIMETH IV SCH (11:02)
--- NOTE | 2025-08-14 11:37 | XRay Report ---
SINGLE VIEW CHEST CLINICAL HISTORY: Pneumonia FINDINGS: An AP, portable, upright chest radiograph is compared to study dated 08/11/2025 and correla darline with chest CT dated 08/12/2025. The heart is enlarged noting atherosclerotic calcification of the thoracic aorta. Findings of lower lobe predominant chronic interstitial/fibrotic lung disease are si milar to previous. There are increasing airspace opacities in the right lower lung suspicious for sup erimposed pneumonia. No large pleural effusion or pneumothorax is seen. The skeletal structures are o steopenic. The bony thorax is grossly intact. IMPRESSION: 1. Cardiomegaly with findings of chronic interstitial/fibrotic lung disease. 2. There are increasing airspace opacities in the right lower lung suggesting superimposed pneumonia. Clinical correlation will be required. Radiographic follow-up to resolution is recommended. ACT 112: Negative or not required by law. Electronically signed by: Kei Drummond M.D. 08/14/2025 11:35 AM
--- NOTE | 2025-08-14 14:29 | Hospitalist Progress Note ---
Date of Service August 14, 2025 Assessment & Plan (1) Shortness of breath: Plan: Acute on chronic respiratory failure with hypoxia Interstitial lung disease Suspected multifocal pneumonia/pneumonitis DD: Hypersensitivity pneumonitis, interstitial pneumonitis, fibrosis with organizing pneumonia, sarcoidosis, PJP infection, NSIP Chronic cough --Chest CTA:No evidence for pulmonary embolism. Multifocal, patchy coarse as well as ground glass opacities with a lower lung predominance, consistent with interstitial lung disease, indeterminate for UIP, possibly representing chronic hypersensitivity pneumonitis, or cryptogenic organizing pneumonia. The areas of ground glass density suggest an acute inflammatory component in addition to the fibrotic change. An atypical infectious process superimposed would be difficult to entirely exclude, however the appearance suggests active ILD. - Recently had outpatient MARY, ANCA and was negative per [place] [facility]. She was scheduled for outpatient PFTs but hasn't happened yet --Sputum culture showed moderate normal nam. Sputum for acid-fast bacilli negative. Culture pending - Workup for Coccidioides antibody, Fungitell, histoplasma/Blastomyces, PJP pending -Anti-Marizol antibody, SSA/SSB antibody, ASSISTANT REFINERY OPERATOR antibody and SCL 70 antibody, ANCA and MARY which were all negative. ESR and CRP were unremarkable. --dSNA ab neg, SUSY antibodies screen interpretation negative. Angiotensin converting enzyme negative. Aspergillus negative. Micropolyspora faeni, pigeon serum, T. candidus, T, vulgaris, S. Viridis all negative. . Rh Factor negative. CCP IgG negative. Proteinase 3 ab negative. Myeloperoxidase Ab negative -- Respiratory BioFire negative --Repeat CT chest on 08/12/25:Again seen are findings of chronic interstitial lung disease as detailed above. This is similar in appearance to 08/07/2025. Subpleural ground glass opacities are seen throughout both lungs with a lower lobe predominance. This may be related to interstitial lung disease. A superimposed infectious/inflammatory pneumonitis is not excluded. Clinical correlation will be required. Cardiomegaly with evidence of pulmonary artery hypertension. Mildly enlarged mediastinal lymph nodes are nonspecific, and could be reactive or related to chronic lung disease. --Procalcitonin: Normal --S/P bronchoscopy on 08/13/25: Per Pulm: Airways were widened. Mildly hyperemic but otherwise normal mucosa and anatomy was appreciated. Multiple lavage samples were obtained, BAL fluid was pink however there was no evidence of alveolar hemorrhage appreciated. No evidence of milky white lavage fluid either. Differential showing predominantly macrophages. Additional studies are pending. -- Bronchial lavage cultures pending Continue Solu-Medrol 40 mg twice a day>> increase to 1 g daily for 3 days Continue Bactrim Appreciate pulmonology input Nebs as needed Follows with Belinda Rapp at [phone] with [facility] Continue supplemental oxygen Patient clinically showed no improvement despite IV steroids, Bactrim use and is rapidly deteriorating Given no clear etiology for worsening interstitial lung disease found, patient would benefit from going to tertiary care hospital for evaluation by interstitial lung disease specialist for further evaluation and management. Patient is initially accepted to [facility] but later was declined due to insurance issues. Plan to transfer to [facility] for further care Chest pain Severe mitral regurgitation LVH Moderate pulmonary hypertension -S/P cardiac catheterization showed no obstructive coronary disease --ECHO:Left ventricle systolic function is normal. EF 60 to 65%. Grade 1 diastolic dysfunction. Mild pulmonic valve regurgitation. Moderate to severe mitral regurgitation. There is systolic anterior motion of the mitral valve. Mild tricuspid regurgitation. Lasix, Aldactone resumed Hold lisinopril as recommended by cardiology Continue metoprolol succinate 12.5 mg twice a day Appreciate cardiology input Thrombocytopenia No acute bleeding issues Monitor platelet count Hyponatremia likely due to SIADH/Bactrim/diuretics Presented with sodium level 122 Sodium 125 today Urine for Legionella negative Added salt tablets Monitor DVT Px: Heparin SQ CODE STATUS Full code Disposition [facility] Admission and Anticipated Discharge Date Admission Date: August 07, 2025 Subjective Patient is seen and examined at bedside Increased oxygen requirement, currently on 15 L Persistent shortness of breath associated with cough Family at bedside Discussed with pulmonology today Review of Systems Review of Systems: All systems reviewed & are unremarkable except as noted in Subjective Physical Exam Physical Exam: Physical Exam: Vitals signs as noted above General Appearance:Moderately built and nourished, no apparent distress Head: normocephalic, Atraumatic Eyes: normal inspection, EOMI Neck: supple, Trachea midline Respiratory/Chest: Normal breath sounds, + basal crackles, No accessory muscle use Cardiovascular: S1, S2, +murmur Abdomen/GI:Soft, Non tender, Bowel sounds present Extremities/Musculoskeletal:normal inspection, no edema Neurologic/Psych:AAOX3, grossly no focal neurological deficits Skin: normal color, warm Results & Data Results & Data Vital Signs (Past 12 Hours) Vital Signs Temp Pulse Pulse Pulse Resp BP Pulse Ox 08/14/25 11:13 36.7 C 68 27 H 167/74 H 93 08/14/25 09:00 56 L 08/14/25 09:00 08/14/25 07:22 36.7 C 70 25 H 137/80 94 08/14/25 03:18 36.5 C 64 20 135/77 91 O2 Del Method O2 Flow Rate 08/14/25 11:13 High Flow Nasal Cannula 15 08/14/25 09:00 08/14/25 09:00 High Flow Nasal Cannula 12 08/14/25 07:22 Oxymask 10 08/14/25 03:18 Oxymask 11 Laboratory Results Short CBC 08/14/25 Range/Units 07:55 WBC 17.63 H (4.8-10.8) K/ul Hgb 13.7 (12.0-16.0) g/dl Hct 37.7 (37.0-47.0) % Plt Count 230 (130-400) K/uL BMP 08/14/25 07:55 Sodium 125 L Potassium 4.9 Chloride 93 L Carbon Dioxide 22 BUN 26 H Creatinine 1.10 Glucose 138 H Calcium 9.2
--- NOTE | 2025-08-14 14:45 | Discharge Summary ---
Date of Service August 14, 2025 Admission HPI Per Admitting Provider This is a 64 yo F with PMhx of HTN, presents with shortness of breath, fatigue, chest heaviness and dry cough to the ER. She occasionally has a tightness and heaviness in her chest. She has a dry cough, no sputum production. Wears 2 -3 L at all times, during sleep wears 3L consistently since May. Has difficulty with doing ADLs such as showering. She occasionally has a tightness and heaviness in her chest. She has a dry cough, no sputum production. 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 This morning she was preparing food for a group of people celebrating a 89th birthday, once the guest arrived and everything was done, her drove her to the hospital. History is reviewed by the patient, her and Belinda KWONG with [facility] on the phone. Her symptoms started in May, where she was seen by PCP and given oral antibiotics levofloxacin 500 mg x 14 days, no symptom improvement. CT chest at that time showed ground glass opacities. She was admitted to [facility] from 07/10-07/16 where she was given Iv vancomycin, amongst other scans and a cardiac stress test which was read as normal. Echo showed severely dilated RV and EF of 55%, mild mitral regurgitation. RVSP 36. Her sodium during that stay was aroun 130 consistently. During that stay is where she was told her heart was looking more like heart failure and was placed on amlodipine 5 mg and lisinopril 40 mg. She is still taking these medications. Recently she was also placed on lasix 40 mg daily. Pt has been following with [facility] as outpatient on 07/20/25. The patient was seen by customer service cashier at [facility], Belinda KWONG, on follow up. She was started on prednisone 40 mg daily for about 2 weeks. Pulse ox was slightly improved on RA and was only requiring 2 L with exertional activity. Had labs done outpatient on 08/06/25 and found low sodium at 123, Pt was labs were done yesterday at [facility] showing pro-BNP of >2700, here on admission has Na 122 and BNP 273. Outpatient provider told her to drink Gatorade and hold the lasix, so last dose of lasix was evening (3days ago). Biofire RVP is negative. CTA shows multifocal patchy coarse ground glass opacities concerning for multifocal pneumonia vs interstitial lung disease vs hypersensitivity pneumonitis. There is no pulmonary emboli. She refuses antibiotic as she has been on 3 courses without improvement. Pt is agreeable for admission. Admission Exam Per Admitting Provider General: awake, alert, no apparent distress, white female Head: Normocephalic, atraumatic ENT: PERRL, EOMI, no pharyngeal exudate, mucous membranes moist Chest: Diminished breath sounds at bases, on room air, no adventitious breath s ounds Cardiac: Regular rate and rhythm, no murmur, no JVD, normal peripheral pulses, good capillary refill Abdominal: NABS x 4 quadrants, soft, nondistended, nontender to palpation, no rebound or guarding Extremities: Normal inspection, no peripheral edema or erythema, calfs nontender to palpation Psych: Normal mood and affect Neuro: AAO x 3, strength intact bilaterally and rated 5/5, no motor deficits, speech is clear, no peripheral sensory deficits Principal Diagnosis Acute on chronic respiratory failure with hypoxia Interstitial lung disease Pneumonitis Moderate pulmonary hypertension Severe mitral regurgitation Thrombocytopenia Hyponatremia Discharge Data Allergies Allergy/AdvReac Type Severity Reaction Status Date / Time No Known Allergies Allergy Verified 08/13/25 08:24 Consultations 08/07/25 18:34 ED Decision to Admit Stat 08/07/25 18:45 Consult Pulmonology Routine 08/07/25 19:59 Consult Cardiology Routine 08/13/25 14:01 Burn CD for patient Stat Radiology Transfer Of Images Stat Procedures Performed Operation Date: 08/13/25 09:00 Actual Procedures p Bronchoscopy with Bronchoalveolar Lavage (BAL)(Not Applicable) - Lupe Bermudez MD Ordered Studies Laboratory Results WBC 17.63 K/ul (4.8-10.8) H 08/14/25 07:55 RBC 4.24 M/uL (4.20-5.40) 08/14/25 07:55 Hgb 13.7 g/dl (12.0-16.0) 08/14/25 07:55 POC Hgb 11.9 g/dl (12.0-16.0) L 08/09/25 11:12 Hct 37.7 % (37.0-47.0) 08/14/25 07:55 POC Hct 35 % (37-47) L 08/09/25 11:12 MCV 88.9 fL (80.0-100.0) 08/14/25 07:55 MCH 32.3 pg (25.0-34.0) 08/14/25 07:55 MCHC 36.3 g/dL (32.0-36.0) H 08/14/25 07:55 RDW Std Deviation 37.8 fL (36.4-46.3) 08/14/25 07:55 RDW Coeff of June 11.8 % (11.5-14.5) 08/14/25 07:55 Plt Count 230 K/uL (130-400) 08/14/25 07:55 MPV 10.6 fL (9.4-12.4) 08/14/25 07:55 Immature Gran % (Auto) 0.4 % 08/11/25 06:06 Neut % (Auto) 87.4 % 08/11/25 06:06 Lymph % (Auto) 8.1 % 08/11/25 06:06 White % (Auto) 3.9 % 08/11/25 06:06 Eos % (Auto) 0.1 % 08/11/25 06:06 Baso % (Auto) 0.1 % 08/11/25 06:06 Neut # (Auto) 12.70 K/uL (1.40-6.50) H 08/11/25 06:06 Lymph # (Auto) 1.18 K/uL (1.20-3.40) L 08/11/25 06:06 White # (Auto) 0.57 K/uL (0.11-0.59) 08/11/25 06:06 Eos # (Auto) 0.01 K/uL (0.00-0.50) 08/11/25 06:06 Baso # (Auto) 0.01 K/uL (0.00-0.20) 08/11/25 06:06 Immature Gran # (Auto) 0.06 K/uL (0.01-0.20) 08/11/25 06:06 Platelet Estimate Decreased (Normal) L 08/11/25 06:06 Polychromasia 1+ 08/09/25 06:10 Peripher Smr Path Cons 08/07/25 22:31 ESR 13 mm/hr (0-30) 08/07/25 15:10 POC pH 7.37 (7.35-7.45) 08/09/25 11:12 POC pCO2 37 mmHg (35-46) 08/09/25 11:12 POC pO2 42 mmHg (80-95) L 08/09/25 11:12 POC HCO3 22 mmol/L (19-24) 08/09/25 11:12 POC Total CO2 23 mmol/L (24-31) L 08/09/25 11:12 POC Base Excess -4.0 mmol/L (-9-1.8) 08/09/25 11:12 POC ABG O2 Sat 77.0 % (90-95) L 08/09/25 11:12 POC Sodium 131 mmol/L (135-144) L 08/09/25 11:12 Sodium 125 mmol/L (136-145) L 08/14/25 07:55 POC Potassium 3.7 mmol/L (3.3-5.0) 08/09/25 11:12 Potassium 4.9 mmol/L (3.5-5.1) 08/14/25 07:55 Chloride 93 mmol/L (98-107) L 08/14/25 07:55 Carbon Dioxide 22 mmol/L (21-32) 08/14/25 07:55 Anion Gap 10 (3-11) 08/14/25 07:55 BUN 26 mg/dl (6-23) H 08/14/25 07:55 Creatinine 1.10 mg/dl (0.6-1.2) 08/14/25 07:55 Est Cr Clr Drug Dosing 49.6 ml/min 08/14/25 07:55 eGFR 56.81 08/14/25 07:55 BUN/Creatinine Ratio 23.6 (10-20) H 08/14/25 07:55 Glucose 138 mg/dl (70-99(Fasting)) H 08/14/25 07:55 Osmolality 265 mOsm/kg (280-300) L 08/07/25 15:10 Calcium 9.2 mg/dl (8.6-10.3) 08/14/25 07:55 Phosphorus 3.0 mg/dl (2.5-4.9) 08/10/25 06:30 Magnesium 2.3 mg/dl (1.7-2.4) 08/14/25 07:55 Total Bilirubin 0.5 mg/dl (0.2-1.0) 08/10/25 06:30 AST 18 U/L (13-39) 08/10/25 06:30 ALT 12 U/L (7-52) 08/10/25 06:30 Alkaline Phosphatase 35 U/L (34-104) 08/10/25 06:30 Lactate Dehydrogenase 407 U/L (86-244) H 08/12/25 11:45 Total Creatine Kinase 45 U/L (26-192) 08/08/25 15:48 Troponin I High Sens 31.8 pg/ml (0-14) H 08/08/25 09:20 C-Reactive Protein < 0.50 mg/dl (0-0.5) 08/07/25 15:10 B-Natriuretic Peptide 253 pg/ml (0-100) H 08/07/25 15:10 Total Protein 6.0 gm/dl (6.0-8.3) 08/10/25 06:30 Albumin 3.7 gm/dl (3.4-5.0) 08/10/25 06:30 Globulin 2.3 gm/dl (2.5-4.0) L 08/10/25 06:30 Albumin/Globulin Ratio 1.6 (0.9-2) 08/10/25 06:30 Procalcitonin < 0.02 ng/ml (0-0.5) 08/12/25 11:45 Urine Color Yellow 08/07/25 16:11 Urine Appearance Clear (Clear) 08/07/25 16:11 Urine pH 6.5 (4.5-7.5) 08/07/25 16:11 Ur Specific [place] 1.006 (1.000-1.030) 08/07/25 16:11 Urine Protein Negative (Negative) 08/07/25 16:11 Urine Glucose (UA) Negative (Negative) 08/07/25 16:11 Urine Ketones Negative (Negative) 08/07/25 16:11 Urine Blood Negative (Negative) 08/07/25 16:11 Urine Nitrite Negative (Negative) 08/07/25 16:11 Urine Bilirubin Negative (Negative) 08/07/25 16:11 Urine Urobilinogen Negative (Negative) 08/07/25 16:11 Ur Leukocyte Esterase Negative (Negative) 08/07/25 16:11 Urine Osmolality 176 mOsm/kg (500-800) L 08/07/25 16:11 Ur Random Creatinine 17.2 mg/dl 08/07/25 16:11 Ur Random Sodium 20 mmol/L 08/07/25 16:11 Urine Comment 08/07/25 16:11 Fluid Neutrophils % 17 % 08/13/25 09:45 Fluid Lymphocytes % 6 % 08/13/25 09:45 Fluid Eosinophils % 3 % 08/13/25 09:45 Fl Monocyt/Macrophag % 74 % 08/13/25 09:45 Fluid Comment 08/13/25 09:45 Nasal Screen MRSA (PCR) Negative (Negative) 08/08/25 17:50 Rheumatoid Factor Cancelled 08/07/25 22:31 MARY Screen Cancelled 08/07/25 22:31 Anti-Proteinase 3 Cancelled 08/07/25 22:31 Anti-Myeloperoxidase Cancelled 08/07/25 22:31 ANCA Cancelled 08/07/25 22:31 YAYO-1 Antibody <1.0 NEG AI (<1.0 NEG) 08/08/25 15:48 SS-A/Ro Antibody <1.0 NEG AI (<1.0 NEG) 08/08/25 15:48 SS-B/La Antibody <1.0 NEG AI (<1.0 NEG) 08/08/25 15:48 Sm (Rankin) Antibody Cancelled 08/07/25 22:31 HEAVY FORGER Antibody <1.0 NEG AI (<1.0 NEG) 08/08/25 15:48 Scl-70 Scleroderma Ab <1.0 NEG AI (<1.0 NEG) 08/08/25 15:48 Anti-ds DNA (Crithidia) Cancelled 08/07/25 22:31 Chromatin Antibody Cancelled 08/07/25 22:31 Anti-Centromere Ab Cancelled 08/07/25 22:31 Thyroid Antimicrosomal Cancelled 08/07/25 22:31 Anti-Cardiolipin IgG Ab Cancelled 08/07/25 22:31 Anti-Cardiolipin IgA Ab Cancelled 08/07/25 22:31 Anti-Cardiolipin IgM Ab Cancelled 08/07/25 22:31 Complement C3 Cancelled 08/07/25 22:31 Complement C4 Cancelled 08/07/25 22:31 Adenovirus (PCR) Not Detected (NotDetected) 08/07/25 16:17 B. pertussis DNA (PCR) Not Detected (NotDetected) 08/07/25 16:17 B.parapertussis DNA PCR Not Detected (NotDetected) 08/07/25 16:17 C. pneumoniae DNA (PCR) Not Detected (NotDetected) 08/07/25 16:17 Coccidioides Ab (ID) Negative (Negative) 08/07/25 22:31 Coronavirus OC43 (PCR) Not Detected (NotDetected) 08/07/25 16:17 Coronavirus HKU1 (PCR) Not Detected (NotDetected) 08/07/25 16:17 Coronavirus 229E (PCR) Not Detected (NotDetected) 08/07/25 16:17 SARS-CoV-2 (PCR) Not Detected (NotDetected) 08/07/25 16:17 Coronavirus NL63 (PCR) Not Detected (NotDetected) 08/07/25 16:17 Histo/Blasto PCR Result See Scanned Report 08/08/25 22:00 HIV 1&2 Ab/P24 Ag 4thGn Negative (Negative) 08/07/25 22:31 Human Metapneumovir PCR Not Detected (NotDetected) 08/07/25 16:17 Influenza Type A (PCR) Not Detected (NotDetected) 08/07/25 16:17 Influenza Type B (PCR) Not Detected (NotDetected) 08/07/25 16:17 Urine Legionella Ag SEE NOTE 08/07/25 16:11 M. pneumoniae (PCR) Not Detected (NotDetected) 08/07/25 16:17 Parainfluenza 1 (PCR) Not Detected (NotDetected) 08/07/25 16:17 Parainfluenza 2 (PCR) Not Detected (NotDetected) 08/07/25 16:17 Parainfluenza 3 (PCR) Not Detected (NotDetected) 08/07/25 16:17 Parainfluenza 4 (PCR) Not Detected (NotDetected) 08/07/25 16:17 Pneumocystis Source SPUTUM 08/08/25 22:00 Pneumocyst jirovecii PCR Cancelled 08/13/25 09:45 RSV (PCR) Not Detected (NotDetected) 08/07/25 16:17 Entero/Rhino (PCR) Not Detected (NotDetected) 08/07/25 16:17 Beta-(1,3)-D-Glucan <31 pg/mL (<60) 08/07/25 22:31 B-(1,3)-D-Glucan Intrp Negative 08/07/25 22:31 Impressions Chest CTA 08/07/25 15:26 CT pulmonary angiogram with IV contrast History: shortness of breath COMPARISON: None TECHNIQUE: CT angiography of the chest was performed without IV contrast followed by IV contrast, including 3D post processing CTA image reconstruction. Dose reduction techniques were achieved by using automatic exposure control and/or adjustment of mA and/or kV according to patient size and/or use of iterative reconstruction technique. FINDINGS: Diagnostic quality: Adequate There is no evidence for pulmonary embolism. The heart is enlarged. Moderate coronary calcifications. There is no pericardial effusion. Mild reactive appearing lymph nodes In the chest. The central tracheobronchial tree is clear. There are diffuse, mixed coarse opacities with patchy ground glass, overall with a lower lobe predominance, most pronounced in the left lower lobe. There is significant involvement of the central peribronchovascular regions, as well as the periphery. No significant bronchiectasis. No definite honeycombing. There is no pleural effusion. Limited visualized upper abdomen. No destructive osseous changes are seen. IMPRESSION: No evidence for pulmonary embolism. Multifocal, patchy coarse as well as ground glass opacities with a lower lung predominance, consistent with interstitial lung disease, indeterminate for UIP, possibly representing chronic hypersensitivity pneumonitis, or cryptogenic organizing pneumonia. The areas of ground glass density suggest an acute inflammatory component in addition to the fibrotic change. An atypical infectious process superimposed would be difficult to entirely exclude, however the appearance suggests active ILD. Electronically signed by Jakob Rankin 08-07-2025 5:[address] 08/12/25 10:58 CT SCAN OF THE CHEST WITHOUT IV CONTRAST CLINICAL HISTORY: Pneumonia COMPARISON STUDY: Chest x-ray dated 08/11/2025. Chest CT dated 08/07/2025. TECHNIQUE: CT scan of the thorax was performed from the thoracic inlet to the upper abdomen. Images are reviewed in the axial, sagittal, and coronal planes. IV contrast was not administered for this examination as per the referring clinician. A dose lowering technique was utilized adhering to the principles of ALARA. CT DOSE: 444.89 mGy.cm FINDINGS: Thyroid: Imaged portions of the thyroid gland are normal in size and attenuation. Thoracic aorta: Atherosclerotic calcification is seen in the thoracic aorta. There is ectasia of the ascending thoracic aorta which measures up to 3.8 cm diameter. The remainder of the thoracic aorta is normal in caliber, and the arch demonstrates standard 3-vessel anatomy. Heart: The heart is enlarged and without pericardial effusion. The coronary arteries and mitral annulus are densely calcified. The pulmonary trunk is dilated, measuring 3.7 cm diameter. This suggests pulmonary artery hypertension. Lungs and pleural spaces: Findings of chronic interstitial lung disease are similar to previous, with diffuse subpleural reticulation, subpleural scarring with architectural distortion, ground glass opacities, and traction bronchiectasis. No honeycombing is seen. There is relative sparing at the apices. No pleural effusion is identified. Mediastinum: There are mildly enlarged mesenteric lymph nodes. A high right paratracheal node measures 13 mm short axis. Subcarinal node measures 20 mm short axis comment pretracheal nodes measure up to 8mm in short axis. Kyara: Not well assessed without IV contrast. Axillae: There is no axillary lymphadenopathy. Upper abdomen: There is a small hiatal hernia. Calcified granulomas are noted in the liver and spleen. Skeletal structures: The skeletal structures are osteopenic. No lytic or blastic bony lesions are seen. Degenerative change is noted in the shoulders and thoracic spine. IMPRESSION: 1. Again seen are findings of chronic interstitial lung disease as detailed above. This is similar in appearance to 08/07/2025. 2. Subpleural ground glass opacities are seen throughout both lungs with a lower lobe predominance. This may be related to interstitial lung disease. A superimposed infectious/inflammatory pneumonitis is not excluded. Clinical correlation will be required. 3. Cardiomegaly with evidence of pulmonary artery hypertension. 4. Mildly enlarged mediastinal lymph nodes are nonspecific, and could be reactiv e or related to chronic lung disease. 5. Additional findings as above. ACT 112: Negative or not required by law. Electronically signed by: Kei Drummond M.D. 08/12/2025 1:39 PM Chest X-Ray 08/14/25 10:33 SINGLE VIEW CHEST CLINICAL HISTORY: Pneumonia FINDINGS: An AP, portable, upright chest radiograph is compared to study dated 08/11/2025 and correlated with chest CT dated 08/12/2025. The heart is enlarged noting atherosclerotic calcification of the thoracic aorta. Findings of lower lobe predominant chronic interstitial/fibrotic lung disease are similar to previous. There are increasing airspace opacities in the right lower lung suspicious for superimposed pneumonia. No large pleural effusion or pneumothorax is seen. The skeletal structures are osteopenic. The bony thorax is grossly intact. IMPRESSION: 1. Cardiomegaly with findings of chronic interstitial/fibrotic lung disease. 2. There are increasing airspace opacities in the right lower lung suggesting superimposed pneumonia. Clinical correlation will be required. Radiographic follow-up to resolution is recommended. ACT 112: Negative or not required by law. Electronically signed by: Kei Drummond M.D. 08/14/2025 11:35 AM Hospital Course (1) Shortness of breath: Acute on chronic respiratory failure with hypoxia Interstitial lung disease Suspected multifocal pneumonia/pneumonitis DD: Hypersensitivity pneumonitis, interstitial pneumonitis, fibrosis with organizing pneumonia, sarcoidosis, PJP infection, NSIP Chronic cough --Chest CTA:No evidence for pulmonary embolism. Multifocal, patchy coarse as well as ground glass opacities with a lower lung predominance, consistent with interstitial lung disease, indeterminate for UIP, possibly representing chronic hypersensitivity pneumonitis, or cryptogenic organizing pneumonia. The areas of ground glass density suggest an acute inflammatory component in addition to the fibrotic change. An atypical infectious process superimposed would be difficult to entirely exclude, however the appearance suggests active ILD. - Recently had outpatient MARY, ANCA and was negative per [facility]. She was scheduled for outpatient PFTs but hasn't happened yet --Sputum culture showed moderate normal nam. Sputum for acid-fast bacilli negative. Culture pending - Workup for Coccidioides antibody, Fungitell, histoplasma/Blastomyces, PJP pending -Anti-Yayo antibody, SSA/SSB antibody, HEAVY FORGER antibody and SCL 70 antibody, ANCA and MARY which were all negative. ESR and CRP were unremarkable. --dSNA ab neg, SUSY antibodies screen interpretation negative. Angiotensin converting enzyme negative. Aspergillus negative. Micropolyspora faeni, pigeon serum, T. candidus, T, vulgaris, S. Viridis all negative. . Rh Factor negative. CCP IgG negative. Proteinase 3 ab negative. Myeloperoxidase Ab negative -- Respiratory BioFire negative --Repeat CT chest on 08/12/25:Again seen are findings of chronic interstitial lung disease as detailed above. This is similar in appearance to 08/07/2025. Subpleural ground glass opacities are seen throughout both lungs with a lower lobe predominance. This may be related to interstitial lung disease. A superimposed infectious/inflammatory pneumonitis is not excluded. Clinical correlation will be required. Cardiomegaly with evidence of pulmonary artery hypertension. Mildly enlarged mediastinal lymph nodes are nonspecific, and could be reactive or related to chronic lung disease. --Procalcitonin: Normal --S/P bronchoscopy on 08/13/25: Per Pulm: Airways were widened. Mildly hyperemic but otherwise normal mucosa and anatomy was appreciated. Multiple lavage samples were obtained, BAL fluid was pink however there was no evidence of alveolar hemorrhage appreciated. No evidence of milky white lavage fluid either. Differential showing predominantly macrophages. Additional studies are pending. -- Bronchial lavage cultures pending Continue Solu-Medrol 40 mg twice a day>> increase to 1 g daily for 3 days Continue Bactrim Appreciate pulmonology input Nebs as needed Follows with Belinda Rapp at [phone] with [facility] Continue supplemental oxygen Patient clinically showed no improvement despite IV steroids, Bactrim use and is rapidly deteriorating Given no clear etiology for worsening interstitial lung disease found, patient would benefit from going to tertiary care hospital for evaluation by interstitial lung disease specialist for further evaluation and management. Patient is initially accepted to [facility] but later was declined due to insurance issues. Patient was accepted by Dr. Chante Colvin at [facility]. Patient did not patient's family was informed and agrees with the plan. Plan to transfer to [facility] for further care Chest pain Severe mitral regurgitation LVH Moderate pulmonary hypertension -S/P cardiac catheterization showed no obstructive coronary disease --ECHO:Left ventricle systolic function is normal. EF 60 to 65%. Grade 1 diastolic dysfunction. Mild pulmonic valve regurgitation. Moderate to severe mitral regurgitation. There is systolic anterior motion of the mitral valve. Mild tricuspid regurgitation. Lasix, Aldactone resumed Hold lisinopril as recommended by cardiology Continue metoprolol succinate 12.5 mg twice a day Appreciate cardiology input Thrombocytopenia No acute bleeding issues Monitor platelet count Hyponatremia likely due to SIADH/Bactrim/diuretics Presented with sodium level 122 Sodium 125 today Urine for Legionella negative Added salt tablets Monitor DVT Px: Heparin SQ CODE STATUS Full code Disposition [facility] Total Time Total Time Spent Total Time Spent (In Minutes): 55 minutes Discharge Plan Discharge Items Patient Disposition: Transfer Acute Care Hospital Reason For Visit: MULTIFOCAL PNA VS ILD Discharge Diagnosis: Acute on chronic respiratory failure with hypoxia Interstitial lung disease Pneumonitis Moderate pulmonary hypertension Severe mitral regurgitation Thrombocytopenia Hyponatremia Condition on Discharge: Fair Activity: Per Instructions section Exercise/Sports: Wait until after follow-up appointment Non-emergency contact: Primary Care Provider and Hematology Technologist Call non-emergency contact if: you have any medication questions, your symptoms worsen, your pain is concerning for you and you have a fever Follow-up/Referrals: Florin Hayes PA-C [Primary Care Provider] - Diet: Regular Addtl Attending Provider Instructions: Follow-up with at [facility] for further management Seek immediate medical attention if your symptoms reoccur or worsen Please review medication list provided on discharge for any medication changes as instructed. Please call if you have any questions or problems. You can reach a [facility] hospitalist on duty at [facility] 24 hours a day by calling [phone] Addtl Extension Course Coordinator Provider Instructions: Date of Service: August 14, 2025 Current Inpatient Medications Acetaminophen (Acetaminophen 325 Mg Tab) 650 mg PO Q4H PRN PRN Reason: Moderate Pain (Scale 4, 5, 6) Stop: 09/06/25 21:37 Albuterol (Albut/Ipratrop 3mg/0.5mg Neb 3 Ml Vial) 3 ml NEB Q6R PRN; Protocol PRN Reason: Shortness Of Breath Or Wheezing Stop: 09/06/25 20:30 Furosemide (Furosemide Inj 20 Mg/2 Ml Vial) 20 mg IV DAILY KANDACE Stop: 09/12/25 10:44 Last Admin: 08/14/25 09:01 Dose: 20 mg Guaifenesin/Dextromethorphan (Guaifenesin/Dextrom Syrup 200mg/20mg 10ml Udc) 10 ml PO Q6H PRN PRN Reason: Cough Stop: 09/13/25 10:08 Last Admin: 08/14/25 10:30 Dose: 10 ml Heparin Sodium (Porcine) (Heparin Sod 5,000 Unit/0.5 Ml Vial) 5,000 units SQ Q12 KANDACE Stop: 09/09/25 20:59 Last Admin: 08/14/25 09:18 Dose: 5,000 units Trimethoprim/Sulfamethoxazole (345 mg/ Dextrose) 521.5625 mls @ 347.708 mls/hr IV Q12H KANDACE Stop: 09/13/25 09:59 Last Infusion: 08/14/25 12:36 Dose: Infused Methylprednisolone 1,000 mg/ (Sodium Chloride) 266 mls @ 266 mls/hr IV DAILY KANDACE Stop: 08/16/25 09:59 Last Infusion: 08/14/25 11:00 Dose: Infused Metoprolol Succinate (Metoprolol Succ 25mg Ext Rel Tab) 12.5 mg PO BID KANDACE Stop: 09/08/25 20:59 Last Admin: 08/14/25 09:00 Dose: 12.5 mg Ondansetron HCl (Ondansetron Inj 2 Mg/Ml 2 Ml Vial) 4 mg IV Q4H PRN PRN Reason: Nausea And Vomiting Stop: 09/06/25 21:37 Pantoprazole Sodium (Pantoprazole 40 Mg Tab) 40 mg PO BID [facility] Stop: 09/07/25 20:59 Last Admin: 08/14/25 09:01 Dose: 40 mg Phenol (Chloraseptic (Phenol) 1.4% Soln 180 Ml Btl) 1 sprays MT UD PRN PRN Reason: Cough Stop: 09/12/25 10:39 Last Admin: 08/13/25 10:56 Dose: 1 sprays Sodium Chloride (Sodium Chloride 1 Gm Tablet) 1 gm PO DAILY KANDACE Stop: 09/13/25 10:44 Last Admin: 08/14/25 11:01 Dose: 1 gm Pending Studies at Discharge: Yes Studies:: Bronchial lavage studies Stand-Alone Forms: [facility] Skilled Items Patient informed of condition?: Yes DNR: No Discharge Level of Care: Other Communicable Disease: No Discharge Prognosis: Deteriorating Lines: Peripheral IV Urinary Catheter: No Medications and DC Order Prescriptions: New pantoprazole 40 mg Tablet,Delayed Release (Dr/Ec) 40 mg PO BID Qty: 0 0RF spironolactone 25 mg Tablet 25 mg PO QAM Qty: 0 0RF metoprolol succinate 25 mg Tablet Extended Release 24 Hr 12.5 mg PO BID Qty: 0 0RF Continued furosemide 40 mg tablet 40 mg PO DAILY albuterol sulfate 90 mcg/actuation HFA aerosol inhaler 1 - 2 puff INHALATION Q4 PRN (Reason: COUGH OR SOB) Held prednisone 10 mg tablet 40 mg PO DAILY Hold Instructions: Hold until further recommendations Rx Instructions: Started 08/02/25 lisinopril-hydrochlorothiazide 20-12.5 mg tablet 1 tab PO DAILY Hold Instructions: Hold until further recommendations from your gastroenterology technician Admission Data Admit Date/Time: 08/07/25 18:43 Attending Provider: Matheus Olvera Admit Provider: Casey Adler Primary Care Provider: Florin Hayes Other Providers: Casey Adler; Juan Benson; Lance Webber
== END 2025-08-14 20:05 | disposition short-term general hospital (02) | DRG 166 ==
LOC: ED 14:45 → SUATTDRO 18:43 → 2S 18:43